=== PATIENT | male | born 1950 | race Caucasian/White ===

== ENCOUNTER 2016-12-12 02:01 | Emergency (ER) | payer MEDICARE ==
[2016-12-12] MEDS ORDERED: METHYLPREDNISOLONE PF 125MG/VIAL IM ONE (02:10)
[2016-12-12] MEDS ORDERED: 0.9 % SODIUM CHLORIDE 1000ML 1,000 ML IV SCH (02:15)
[2016-12-12] MEDS ORDERED: ALBUTEROL SULFATE (0.083%) 2.5 MG/3 ML NEB INH SCH (02:15)
[2016-12-12 02:19] LABS: BASO % 0.1 % (0-6); EOS % 0.3 % (0-6); HEMATOCRIT 44.8 % (42.0-52.0); HEMOGLOBIN 14.8 gm/dl (14.0-18.0); LYMPH % 4.6 % (16-45); MEAN CELL VOLUME 93.9 fl (81-97); MEAN PLATELET VOLUME 11.5 fl (7.4-10.4); MONO % 3.8 % (0-9); PLATELET COUNT 203 K/uL (130-400); RED BLOOD COUNT 4.77 M/uL (4.40-5.70); RED CELL DISTRIBUTION WIDTH 14.4 % (11.5-14.5); WHITE BLOOD COUNT W/O DIFF 15.6 K/uL (4.2-12.2)
--- NOTE | 2016-12-12 02:20 | Emergency Department Record ---
History of Present Illness - General Chief Complaint: Shortness of breath Stated Complaint: LAURA Time Seen by Provider: 12/12/16 02:09 Source: Patient Mode of Arrival: EMS Limitations: No limitations - History of Present Illness Initial Comments: 66 yo male presents to ED with a 2-3 day history of cough, fever, and difficulty breathing. Patient reports a previous history of COPD and CAD, non- oxygen dependent at home. Patient reports generalized weakness and non- productive cough symptoms as well. MD Complaint: Shortness of breath Onset/Timin -: Days(s) Consistency: Constant Improves With: Nothing Worsens With: Coughing Known History Of: COPD Associated Symptoms: Fever Treatments Prior to Arrival: Bronchodilator - Related Data Home Oxygen Therapy: No Home Medications Medication Instructions Recorded Confirmed Last Taken Carvedilol [Carvedilol] 12.5 mg PO BID 02/06/15 07/21/15 12/11/16 Furosemide [Furosemide] 20 mg PO DAILY 02/06/15 12/12/16 12/11/16 Lisinopril [Lisinopril] 10 mg PO DAILY 02/06/15 12/12/16 12/11/16 Lovastatin [Lovastatin] 40 mg PO DAILY 02/06/15 12/12/16 12/11/16 Carvedilol [Coreg] 12.5 mg PO BID 12/12/16 12/12/16 12/11/16 Multivitamin [Multi-Vitamin Daily] 1 tab PO DAILY 12/12/16 12/12/16 12/11/16 Previous Rx's Medication Instructions Recorded Epinephrine [Epipen] 0.3 mg IM ASDIR PRN #1 syr 02/21/15 Allergies Allergy/AdvReac Type Severity Reaction Status Date / Time No Known Drug Allergies Allergy Verified 07/21/15 08:17 Travel Screening - Travel/Exposure Within Last 30 Days Have you traveled within the last 30 days?: No - Travel/Exposure Within Last Year Have you traveled outside the [place] in the last year?: No - Additonal Travel Details Have you been exposed to anyone with a communicable illness?: No Review of Systems Constitutional: Reports: Fever. Denies: Chills, Malaise, Night sweats Eyes: Denies: Eye discharge, Eye pain ENT: Denies: Congestion, Ear pain, Epistaxis Respiratory: Reports: Cough, Dyspnea, Wheezes Cardiovascular: Reports: Dyspnea on exertion. Denies: Chest pain Endocrine: Denies: Fatigue, Heat or cold intolerance Gastrointestinal: Denies: Abdominal pain, Nausea, Vomiting Genitourinary: Denies: Incontinence, Retention Musculoskeletal: Denies: Arthralgia, Back pain, Gout, Joint swelling Skin: Denies: Bruising, Change in color Neurological: Denies: Abnormal gait, Confusion, Headache, Seizure Psychiatric: Denies: Anxiety Hematological/Lymphatic: Denies: Anemia, Blood Clots Past Medical History - SOCIAL HISTORY Smoking Status: Current every day smoker Alcohol Use: Occassional - RESPIRATORY Hx Respiratory Disorders: Yes Hx COPD: Yes - CARDIOVASCULAR Hx Cardio Disorders: Yes Hx Cardiac Cath: Yes Hx Heart Attack: Yes (triple bypass) Hx Pacemaker/Defib: Yes - NEURO Hx Neuro Disorders: No - GI Hx GI Disorders: No - Hx Genitourinary Disorders: No - ENDOCRINE Hx Endocrine Disorders: No - MUSCULOSKELETAL Hx Musculoskeletal Disorders: No - PSYCH Hx Psych Problems: No - HEMATOLOGY/ONCOLOGY Hx Hematology/Oncology Disorders: No Family Medical History Any Significant Family History?: No Hx Heart Disease: Father, Grandparents Physical Exam - General General Appearance: Alert, Oriented x3, Cooperative, Moderate distress Limitations: No limitations - Head Head exam: Atraumatic, Normocephalic, Normal inspection Head exam detail: negative: Abrasion, Contusion, Vargas's sign, General tenderness, Hematoma, Laceration - Eye Eye exam: Normal appearance. negative: Conjunctival injection, Periorbital swelling, Periorbital tenderness, Scleral icterus - ENT Ear exam: negative: Auricular hematoma, Auricular trauma Nasal Exam: negative: Active bleeding, Discharge, Dried blood, Foreign body Mouth exam: negative: Drooling, Laceration, Muffled voice, Tongue elevation - Neck Neck exam: Normal inspection. negative: Meningismus, Tenderness - Respiratory Respiratory exam: Decreased breath sounds, Prolonged expiratory, Respiratory distress, Wheezes - Cardiovascular Cardiovascular Exam: Normal rhythm, Normal heart sounds, Tachycardia - GI/Abdominal GI/Abdominal exam: Soft. negative: Rebound, Rigid, Tenderness - Rectal Rectal exam: Deferred - exam: Deferred - Extremities Extremities exam: Normal inspection. negative: Pedal edema, Tenderness - Back Back exam: Denies: CVA tenderness (R), CVA tenderness (L) - Neurological Neurological exam: Alert, Oriented X3 - Psychiatric Psychiatric exam: Normal affect, Normal mood - Skin Skin exam: Normal color. negative: Abrasion Type of lesion: negative: abrasion Course Vital Signs 12/12/16 02:06 Pulse Rate 150 H Respiratory 32 H Rate Blood Pressure 146/90 Pulse Ox 94 L - Reevaluation(s) Reevaluation #1: 12/12/16 02:18 EKG: Sinus tachycardia 156 with PVCs Normal axis, normal intervals ST depression I, II, AVF, ST depression V4-V6 Reevaluation #2: 12/12/16 02:50 CXR reviewed: Probably RLL infiltrate, ? interstitial edema as well. patient reassessed, BS are less diminished, audible wheezes are still present. Zithromax and Rocephin ordered to infuse. 12/12/16 02:51 Reevaluation #3: 12/12/16 03:11 Troponin level 0.331, aspirin given for elevated Troponin. IVFs and antibiotics are infusing for elevated lactic acid as well. Per patient request , will transfer to [facility] for admission to SDU. Reevaluation #4: 12/12/16 03:33 Case was discussed with Dr. Farah (Hospitalist), will obtain ABG and initiate transfer to [facility] ER to undergo respiratory viral panel prior to admission to the SDU. Reevaluation #5: 12/12/16 03:57 ABG reviewed, pCO2 41, overall normal appearing ABG 4:06 AM Case was discussed with Dr. Higgins, will accept patient for a ED viral respiratory panel prior to admission. 12/12/16 04:06 Medical Decision Making - Lab Data Result diagrams: 12/12/16 02:05 12/12/16 02:05 Critical Care Time Critical Care Time: Yes Total Critical Care Time: 60 Critical Care Time: Diagnosis and treatment for COPD, CAP, and elevated Troponin, arrangement for transfer to [facility] ER/SDU. Disposition Disposition: Transfer Clinical Impression: Elevated troponin I level, Community acquired pneumonia COPD (chronic obstructive pulmonary disease) Qualifiers: COPD type: unspecified COPD Qualified Code(s): J44.9 - Chronic obstructive pulmonary disease, unspecified Sepsis Qualifiers: Sepsis type: sepsis due to unspecified organism Qualified Code(s): A41.9 - Sepsis, unspecified organism Disposition: Acute Care Hospital Transfer Transfer To: [facility] Reason For Transfer: Sepsis, elevated troponin Accepting Physician: Gagan Higgins Time Discussed w/Accepting Physician: 04:01 Condition: (2) Stable Forms: Patient Portal Access Time of Disposition: 04:01
[2016-12-12] MEDS ORDERED: METHYLPREDNISOLONE PF 125MG/VIAL IVP SCH (02:30)
[2016-12-12 02:32] LABS: ALB/GLOB RATIO 1.3 (1.1-1.8); ALBUMIN 4.5 gm/dL (3.5-5.0); ALKALINE PHOSPHATASE 95 U/L (38-126); ALT/SGPT 33 U/L (21-72); ANION GAP 16.8 (7-16); AST/SGOT 32 U/L (17-59); BILIRUBIN,TOTAL 0.69 mg/dL (0.2-1.3); BLOOD UREA NITROGEN 11 mg/dL (9-20); CARBON DIOXIDE 23.2 mmol/L (22-30); CREATINE PHOSPHOKINASE 69 U/L (55-170); CREATININE 0.9 mg/dL (0.66-1.25); EST GLOMERULAR FILTRATION RATE > 60 ml/min; GLUCOSE,RANDOM 163 mg/dL (70-110)
[2016-12-12 02:43] LABS: CKMB 4.8 ug/L (0-6)
[2016-12-12] MEDS ORDERED: AZITHROMYCIN 500 MG in 0.9 % SODIUM CHLORIDE 250ML 250 ML IVPB ONE (02:52)
[2016-12-12] MEDS ORDERED: CEFTRIAXONE SODIUM 1 GM in 0.9 % SODIUM CHLORIDE 100ML 100 ML IVPB ONE (02:52)
[2016-12-12 03:05] LABS: TROPONIN I 0.331 ng/mL (0.00-0.034)
[2016-12-12] MEDS ORDERED: ASPIRIN 325 MG TABLET PO ONE (03:06)
[2016-12-12 03:41] LABS: INFLUENZA A NEGATIVE (NEGATIVE); INFLUENZA B NEGATIVE (NEGATIVE)
[2016-12-12 03:55] LABS: ARTERIAL BLD GAS O2 SATURATION 97.6 % (95-98); ARTERIAL BLOOD GAS BASE EXCESS -0.5 mmol/L (-2 - 3); ARTERIAL BLOOD GAS PCO2 41.1 mmHg (35-48); ARTERIAL BLOOD GAS pH 7.39 (7.35-7.45); CARBOXYHEMOGLOBIN 2.8 % (0-1.5); METHEMOGLOBIN 0.5 % (0.0-1.5); O2 HEMOGLOBIN 94.3 % vol (94-99); TOTAL HEMOGLOBIN 13.5 g/dl (14-18)
[2016-12-12 03:56] LABS: ALLEN TEST PASS
--- NOTE | 2016-12-15 14:53 | RADIOLOGY REPORT ---
EXAM: PORTABLE CHEST HISTORY: SHORTNESS OF BREATH, DIFFICULTY IN BREATHING, PRODUCTIVE COUGH AND FEVER FOR SEVERAL DAYS. TECHNIQUE: AP semi-upright portable view of the chest was obtained. Comparison: Portable chest 12/04/12. FINDINGS: Postop sternotomy as before. Pacemaker now in place, new since the prior study, with electrode leads extending into the region of the right atrium and right ventricle. No pneumothorax evident. Cardiomegaly is present with pulmonary venous hypertension and some interstitial blurring likely representing mild CHF with interstitial edema. Blunting of the right lateral costophrenic angle may represent a small associated pleural effusion. Follow- up films are suggested, preferably upright PA and lateral when clinically feasible. IMPRESSION: 1. POSTOP STERNOTOMY BEFORE. 2. PACEMAKER, NEW SINCE PRIOR STUDY, WITH NO PNEUMOTHORAX EVIDENT. 3. CARDIOMEGALY WITH ADDITIONAL FINDINGS SUGGESTING MILD CHF WITH INTERSTITIAL EDEMA. FOLLOW-UP FILMS SUGGESTED. JOB NUMBER: [id number] MTDD
== END 2016-12-12 04:44 | disposition short-term general hospital (02) ==
LOC: ER 02:01
DX: J18.9 Pneumonia, unspecified organism (principal); R79.89 Other specified abnormal findings of blood chemistry; J44.9 Chronic obstructive pulmonary disease, unspecified; R53.1 Weakness; R06.02 Shortness of breath; I25.10 Atherosclerotic heart disease of native coronary artery without angina pectoris; I25.2 Old myocardial infarction; F17.210 Nicotine dependence, cigarettes, uncomplicated
CPT/HCPCS: 36600; 71010; 80053; 82375; 82550; 82553; 82803; 83605; 83880; 84484; 85027; 87400; 93005; 93010; 94644; 96365; 96366; 96375; 99285; J0456; J2930; J7030; J7050; J7613

== ENCOUNTER 2017-02-09 08:04 | Inpatient (IN) | payer MEDICARE ==
--- NOTE | 2017-02-09 08:19 | Emergency Department Record ---
History of Present Illness - General Chief Complaint: Difficulty Breathing Stated Complaint: LAURA Time Seen by Provider: 02/09/17 08:17 Source: Patient Mode of Arrival: Ambulatory Limitations: No limitations - History of Present Illness Initial Comments: The patient is here due to a 2 week hx of progressively increasing shortness of breath. He has had a mild cough but that is chronic. The patient denies any CP but is having abdominal fullness. He does have an extensive hx of COPD and does wear home O2 mainly at night. The patient did have similar symptoms as this 2 months ago and did have a small FL and did have a heart catheterization done. He has had stents and a CABG in the past and reports everything looked stable on the catheterization. MD Complaint: Cough, Shortness of breath Onset/Timin -: Week(s) Severity: Moderate Improves With: Nothing Worsens With: Nothing Known History Of: COPD Associated Symptoms: Abdominal pain Treatments Prior to Arrival: Oxygen - Related Data Home Oxygen Therapy: Yes Home Oxygen Amount: 2 Liters Home Medications Medication Instructions Recorded Confirmed Last Taken Carvedilol [Carvedilol] 12.5 mg PO BID 02/06/15 02/09/17 02/08/17 Furosemide [Furosemide] 20 mg PO DAILY 02/06/15 02/09/17 02/08/17 Lisinopril [Lisinopril] 10 mg PO DAILY 02/06/15 02/09/17 02/08/17 Lovastatin [Lovastatin] 40 mg PO DAILY 02/06/15 02/09/17 02/08/17 Carvedilol [Coreg] 12.5 mg PO BID 12/12/16 02/09/17 02/08/17 Multivitamin [Multi-Vitamin Daily] 1 tab PO DAILY 12/12/16 02/09/17 02/08/17 Clopidogrel Bisulfate [Plavix] 75 mg PO DAILY 02/09/17 02/09/17 02/08/17 Fluticasone/Salmeterol [Advair 1 each IH BID 02/09/17 02/09/17 Unknown 250-50 Diskus] Previous Rx's Medication Instructions Recorded Epinephrine [Epipen] 0.3 mg IM ASDIR PRN #1 syr 02/21/15 Allergies Allergy/AdvReac Type Severity Reaction Status Date / Time No Known Drug Allergies Allergy Verified 02/09/17 08:16 Travel Screening - Travel/Exposure Within Last 30 Days Have you traveled within the last 30 days?: No Review of Systems Constitutional: Denies: Chills, Fever Eyes: Denies: Eye discharge ENT: Denies: Congestion Respiratory: Reports: Cough, Dyspnea Cardiovascular: Denies: Chest pain Endocrine: Reports: Fatigue Gastrointestinal: Denies: Constipation Genitourinary: Denies: Dysuria Musculoskeletal: Denies: Back pain Skin: Denies: Bruising Past Medical History - SOCIAL HISTORY Smoking Status: Current every day smoker - RESPIRATORY Hx Respiratory Disorders: Yes Hx COPD: Yes - CARDIOVASCULAR Hx Cardio Disorders: Yes Hx Cardiac Cath: Yes Hx Heart Attack: Yes (triple bypass) Hx Pacemaker/Defib: Yes - NEURO Hx Neuro Disorders: No - GI Hx GI Disorders: No - Hx Genitourinary Disorders: No - ENDOCRINE Hx Endocrine Disorders: No - MUSCULOSKELETAL Hx Musculoskeletal Disorders: No - PSYCH Hx Psych Problems: No - HEMATOLOGY/ONCOLOGY Hx Hematology/Oncology Disorders: No Family Medical History Hx Heart Disease: Father, Grandparents Physical Exam - General General Appearance: Alert, Oriented x3, Cooperative, No acute distress - Head Head exam: Atraumatic, Normocephalic, Normal inspection - Eye Eye exam: Normal appearance, PERRL - ENT Throat exam: Normal inspection. negative: Tonsillar erythema, Tonsillar exudate - Neck Neck exam: Normal inspection, Full ROM. negative: Tenderness - Respiratory Respiratory exam: Decreased breath sounds. negative: Normal lung sounds bilaterally - Cardiovascular Cardiovascular Exam: Regular rate, Normal rhythm, Normal heart sounds - GI/Abdominal GI/Abdominal exam: Soft, Normal bowel sounds. negative: Tenderness - Extremities Extremities exam: Normal inspection, Full ROM, Normal capillary refill. negative: Tenderness - Neurological Neurological exam: Alert, Oriented X3. negative: Altered, Motor sensory deficit Course Vital Signs 02/09/17 08:07 Temperature 97.7 F Pulse Rate 98 H Respiratory 22 Rate Blood Pressure 149/103 Pulse Ox 81 L - Reevaluation(s) Reevaluation #1: The patient is doing much better at this time. He is speaking in full sentences with no LAURA or SOB. I did explain to him that it appears the problem is due to CHF and he will need to stay in the hospital overnight at least for further treatment. The patient understands the plan and agrees. 02/09/17 09:33 Reevaluation #2: The patient is doing well at this time. I did discuss the issues with Selina and she does accept the patient for admission. 02/09/17 09:49 Medical Decision Making - Data Complexity MDM Data: Labs Ordered and/or Reviewed, X-Ray Ordered and/or Reviewed, EKG Ordered and/or Reviewed - Lab Data Result diagrams: 02/09/17 08:30 02/09/17 08:30 - EKG Data -: EKG Interpreted by Me EKG: No Acute Changes, Unchanged From Previous - Radiology Data Radiology results: Report reviewed (CXR: CHF) Disposition Disposition: Admit Clinical Impression: Congestive heart failure Qualifiers: Congestive heart failure type: unspecified congestive heart failure type Congestive heart failure chronicity: acute on chronic Qualified Code(s): I50.9 - Heart failure, unspecified Disposition: Still a Patient at [facility] Decision to Admit: Admit from ER Decision to Admit Date: 02/09/17 Decision to Admit Time: 09:50 Accepting Physician: Vandana Time Discussed w/Accepting Physician: 09:50 Condition: (2) Stable Forms: Patient Portal Access Time of Disposition: 09:50
[2017-02-09] MEDS ORDERED: IPRATROPIUM/ALBUTEROL (0.5MG/3MG) NEB INH ONE ×2 (08:31→08:32)
[2017-02-09 08:55] LABS: BASO % 0.3 % (0-6); EOS % 1.7 % (0-6); GRAN % 76.4 % (47-80); HEMATOCRIT 34.8 % (42.0-52.0); HEMOGLOBIN 11.4 gm/dl (14.0-18.0); INR 1.06; LYMPH % 11.7 % (16-45); MEAN CELL VOLUME 95.3 fl (81-97); MEAN CORPUSCULAR HEMOGLOBIN 31.2 pg (27-33); MEAN CORPUSCULAR HGB CONC 32.8 g/dl (32-36); MEAN PLATELET VOLUME 11.1 fl (7.4-10.4); MONO % 9.9 % (0-9); PARTIAL THROMBOPLASTIN TIME 25.7 SECONDS (24.5-39.1); PLATELET COUNT 206 K/uL (130-400); RED BLOOD COUNT 3.65 M/uL (4.40-5.70); RED CELL DISTRIBUTION WIDTH 13.5 % (11.5-14.5); WHITE BLOOD COUNT W/O DIFF 8.7 K/uL (4.2-12.2)
[2017-02-09 08:56] LABS: ANION GAP 10.7 (7-16); BLOOD UREA NITROGEN 14 mg/dL (9-20); CARBON DIOXIDE 26.3 mmol/L (22-30); CREATINE PHOSPHOKINASE 21 U/L (55-170); CREATININE 0.9 mg/dL (0.66-1.25); EST GLOMERULAR FILTRATION RATE > 60 ml/min; GLUCOSE,RANDOM 141 mg/dL (70-110)
[2017-02-09 09:08] LABS: CKMB 0.7 ug/L (0-6); TROPONIN I < 0.012 ng/mL (0.00-0.034)
[2017-02-09] MEDS ORDERED: FUROSEMIDE IV 40MG/4ML VIAL IVP ONE (09:13)
[2017-02-09 09:38] LABS: ARTERIAL BLD GAS O2 SATURATION 93.2 % (95-98); ARTERIAL BLOOD GAS BASE EXCESS 1.8 mmol/L (-2 - 3); ARTERIAL BLOOD GAS HCO3 26.1 mmol/L (18-23); ARTERIAL BLOOD GAS PCO2 41.9 mmHg (35-48); ARTERIAL BLOOD GAS pH 7.41 (7.35-7.45); METHEMOGLOBIN 0.4 % (0.0-1.5); TOTAL HEMOGLOBIN 11.1 g/dl (14-18)
[2017-02-09 09:40] LABS: ALLEN TEST NOT DONE
[2017-02-09] MEDS: IPRATROPIUM/ALBUTEROL (0.5MG/3MG) NEB INH SCH ×4 (12:19→22:39)
[2017-02-09] MEDS: CLOPIDOGREL 75MG TABLET PO SCH (12:54)
[2017-02-09] MEDS: CARVEDILOL 12.5 MG TABLET PO SCH ×2 (12:54→22:40)
[2017-02-09] MEDS: LISINOPRIL 10 MG TABLET PO SCH (12:54)
--- NOTE | 2017-02-09 16:09 | History & Physical ---
History of Present Illness - Date of Service Date of Service for History & Physical: 02/09/17 - History of Present Illness Admitting Diagnosis: 1. CHF Exacerbation with Hypoxia. History of Present Illness: 66yo male with CC of SOB. he has history of CAD s/p 3 vessel bypass with recent NC about 1.5 months ago, CHF, pacemaker/defibrillator implanted, COPD, and is a smoker. [facility] for NC. Patient underwent cardiac cath but no stenting done at the time. He had echo cardiogram showing systolic heart failure with Ef of 27%. He was sent home on lasix 20mg daily and set to see Dr. Mary in early March. Patient states about 2 weeks after he was hospitalized he started having some shortness of breath that progressed over the next 3 weeks. He was getting winded easily with activity. He decided to come back to the ED today. While in the ED, patient had oxygen saturation of 88% on room air. CXR showed evidence of fluid overload. His EKG showed sinus rhythm and left bundle branch block and 1st set of cardiac enzymes was wnl. He had BNP of 3950. shortness of breath improved following lasix 40mg IV and duoneb breathing treatment. CBC showed hgb of 11.4 and CMP showed BUN/Cr an d eGFR wnl range. Patient was admitted for CHF exacerbation. 02/09/17- Patient states he continues to have improvement in his SOB. He is resting comfortably in bed with oxygen on and satting around 95% with 2L. He denies chest pain, headache, lower extremity swelling or abdominal pain. He states he has been taking his medications on a daily basis without missed doses. Patient believes he is on a low salt diet and fluid restricted diet but says he has been drinking 2-3 coffees a day, a soda, water and usually 2-3 beers a day. He reports some abdominal bloating over the past few weeks as well , which is new for him. no previous liver problems that he is aware of. He continues to smoke but says he has cut back on the amount. interested in quitting but wants to do it cold turkey, doesn't feel he needs help. Admits he needs to get back in with his doctor since he hasn't been seen in about 2 years. PCP: Kirstin cardiology: Usman; [facility] Travel Screening - Travel/Exposure Within Last 30 Days Have you traveled within the last 30 days?: No - Travel/Exposure Within Last Year Have you traveled outside the [place] in the last year?: No - Additonal Travel Details Have you been exposed to anyone with a communicable illness?: No - Travel Symptoms Symptom Screening: None, Weakness Review of Systems Constitutional: Denies: Chills, Fever Eyes: Denies: Eye discharge ENT: Denies: Congestion Respiratory: Reports: Dyspnea Cardiovascular: Reports: Orthopnea. Denies: Chest pain, Edema, Palpitations, Paroxysmal nocturnal dyspnea Endocrine: Reports: Fatigue Gastrointestinal: Denies: Constipation Genitourinary: Denies: Dysuria Musculoskeletal: Denies: Back pain Skin: Denies: Bruising Past Medical History - SOCIAL HISTORY Smoking Status: Current every day smoker - RESPIRATORY Hx Respiratory Disorders: Yes Hx COPD: Yes - CARDIOVASCULAR Hx Cardio Disorders: Yes Hx Cardiac Cath: Yes Hx Heart Attack: Yes (triple bypass) Hx Pacemaker/Defib: Yes - NEURO Hx Neuro Disorders: No - GI Hx GI Disorders: No - Hx Genitourinary Disorders: No - ENDOCRINE Hx Endocrine Disorders: No - MUSCULOSKELETAL Hx Musculoskeletal Disorders: No - PSYCH Hx Psych Problems: No - HEMATOLOGY/ONCOLOGY Hx Hematology/Oncology Disorders: No Family Medical History Any Significant Family History?: Yes Hx Heart Disease: Father, Grandparents H&P Meds/Allergies - Allergies Allergies: Allergies Allergy/AdvReac Type Severity Reaction Status Date / Time No Known Drug Allergies Allergy Verified 02/09/17 08:16 - Home Medications Home Medications Medication Instructions Recorded Confirmed Last Taken Furosemide [Furosemide] 20 mg PO DAILY 02/06/15 02/09/17 02/08/17 Lisinopril [Lisinopril] 10 mg PO DAILY 02/06/15 02/09/17 02/08/17 Lovastatin [Lovastatin] 40 mg PO QHS 02/06/15 02/09/17 02/08/17 Carvedilol [Coreg] 12.5 mg PO BID 12/12/16 02/09/17 02/08/17 Multivitamin [Multi-Vitamin Daily] 1 tab PO DAILY 12/12/16 02/09/17 02/08/17 Clopidogrel Bisulfate [Plavix] 75 mg PO DAILY 02/09/17 02/09/17 02/08/17 Fluticasone/Salmeterol [Advair 1 each IH BID 02/09/17 02/09/17 Unknown 250-50 Diskus] Previous Rx's Medication Instructions Recorded Epinephrine [Epipen] 0.3 mg IM ASDIR PRN #1 syr 02/21/15 - Active Medications Active Medications: Current Medications Albuterol/Ipratropium (Duoneb) 3 ml INH RESP.Q4H.WA [facility] Last Admin: 02/09/17 15:35 Dose: 3 ml Carvedilol (Coreg) 12.5 mg PO BID [facility] Last Admin: 02/09/17 12:54 Dose: 12.5 mg Clopidogrel Bisulfate (Plavix) 75 mg PO DAILY [facility] Last Admin: 02/09/17 12:54 Dose: 75 mg Furosemide (Lasix Iv) 40 mg IVP BIDDIUR [facility] Lisinopril (Zestril) 10 mg PO DAILY [facility] Last Admin: 02/09/17 12:54 Dose: 10 mg Simvastatin (Zocor) 20 mg PO QHS [facility] Physical Exam - Vital Signs Vital Signs: Vital Signs - Last 24 Hrs Temp Pulse Pulse Resp BP Pulse Ox 02/09/17 15:37 88 18 95 02/09/17 13:47 98.3 F 84 18 144/78 95 02/09/17 12:20 94 H 18 95 02/09/17 11:45 97.6 F 83 24 125/75 92 L - General General Appearance: Alert, Oriented x3, Cooperative, No acute distress (obese) Limitations: No limitations - Head Head exam: Atraumatic, Normocephalic, Normal inspection - Eye Eye exam: Normal appearance, PERRL - ENT Throat exam: Normal inspection. negative: Tonsillar erythema, Tonsillar exudate - Neck Neck exam: Normal inspection, Full ROM. negative: Tenderness - Respiratory Respiratory exam: Decreased breath sounds (throughout). negative: Normal lung sounds bilaterally, Accessory muscle use, Rales, Wheezes - Cardiovascular Cardiovascular Exam: Regular rate, Normal rhythm, Normal heart sounds - GI/Abdominal GI/Abdominal exam: Soft, Normal bowel sounds, Distended (generally distended but very soft and non-tender). negative: Tenderness - Extremities Extremities exam: Normal inspection, Full ROM, Normal capillary refill. negative: Pedal edema, Tenderness - Neurological Neurological exam: Alert, Oriented X3. negative: Altered, Motor sensory deficit Results - Labs Result Diagrams: 02/09/17 08:30 02/09/17 08:30 Labs Last 24 Hours: Laboratory Results - last 24 hr 02/09/17 02/09/17 14:00 14:00 CK-MB (CK-2) 0.8 Troponin I < 0.012 VTE H&P Assessment - Risk for VTE Risk for VTE: Yes Risk Level: Moderate Risk Assessment Date: 02/09/17 Risk Assessment Time: 21:33 VTE Orders Placed or Will Be Placed: Yes Plan - Inpatient Certification Inpatient Certification: Admit to inpatient care: Based on my medical assessment, after consideration of patient's risk factors (age, co-morbidities and patient presenting symptoms and acuity), I expect that this patient will remain in the hospital greater than or equal to two midnights and that the services needed warrant inpatient care because: Patient Risk Factors: [age, acute CHF exacerbation, frequent hospitalizations] Estimated length of stay: [48-72H] The patient may reasonably be expected to be discharged or transferred to a hospital within 96 hours after admission to [facility]. Services needed: [IV diuretics, cardiac monitoring, dietary education] Post hospital care (if known): [] I certify that my determination is in accordance with my understanding of Medicare requirements for reasonable and necessary inpatient services. 02/09/17 21:33 - Detailed Diagnosis and Plan (1) Acute exacerbation of CHF (congestive heart failure) Current Visit: Yes Status: Acute Qualifiers: Congestive heart failure type: systolic Qualified Code(s): I50.23 - Acute on chronic systolic (congestive) heart failure Base Code: I50.9 - HEART FAILURE, UNSPECIFIED Comment: 02/09/17- symptomatically improved after 1st dose of lasix. Patient had echo within last month at [facility] following acute NC. not currently having any chest pain adn 1st and 2nd set of CE returned WNL. CXR with signs of fluid overload and BNP of 3950. BUN/Cr wnl ranges. suspect exacerbation 2/2 poor dietary compliance -continue lasix 40mg IV BID -continue serial enzymes -continue cardiac monitoring -obtain weight daily -fluid restriction to 2000cc daily -repeat labs qam -vitals q8H (2) COPD (chronic obstructive pulmonary disease) Current Visit: No Status: Acute Qualifiers: COPD type: unspecified COPD Qualified Code(s): J44.9 - Chronic obstructive pulmonary disease, unspecified Base Code: J44.9 - CHRONIC OBSTRUCTIVE PULMONARY DISEASE, UNSPECIFIED Comment: 02/09/17- COPD likely contributing to SOB. Improved with duoneb breathign treatment. Patient continues to smoke but is thinking about quitting which I encouraged. He is not currently on any home medications for COPD and has not been to his pcp in 2 years. -continue duoneb q4H prn sob per respiratory therapy -continue oxygen via NC to keep sats >92% (3) DVT prophylaxis Current Visit: Yes Status: Acute Base Code: [id number] - Comment: 02/09/17- patient is high risk for DVT with age, recent NC and mobillity. currently on plavix daily. Feel risk of bleed with plavix and lovenox daily will be high. -will add SCD's while in bed and encourage ambulation as tolerating. (4) Full code status Current Visit: Yes Status: Acute Base Code: Z78.9 - OTHER SPECIFIED HEALTH STATUS Comment: 02/09/17- patient is full code. he does have defibrillator placed
[2017-02-09] MEDS: FUROSEMIDE IV 40MG/4ML VIAL IVP SCH (16:20)
[2017-02-09] MEDS: 0.9 % SODIUM CHLORIDE 10ML SYR IVP SCH (16:22)
[2017-02-09 22:33] LABS: CKMB 0.6 ug/L (0-6); TROPONIN I 0.012 ng/mL (0.00-0.034)
[2017-02-09] MEDS: SIMVASTATIN 20 MG TABLET PO SCH (22:37)
[2017-02-10] MEDS: 0.9 % SODIUM CHLORIDE 10ML SYR IVP SCH ×3 (04:39→17:14)
[2017-02-10] MEDS: IPRATROPIUM/ALBUTEROL (0.5MG/3MG) NEB INH SCH ×5 (06:15→23:20)
[2017-02-10 06:47] LABS: BASO % 0.6 % (0-6); EOS % 2.6 % (0-6); GRAN % 64.9 % (47-80); HEMATOCRIT 35.2 % (42.0-52.0); HEMOGLOBIN 11.1 gm/dl (14.0-18.0); LYMPH % 21.1 % (16-45); MEAN CELL VOLUME 96.4 fl (81-97); MEAN CORPUSCULAR HEMOGLOBIN 30.4 pg (27-33); MEAN CORPUSCULAR HGB CONC 31.5 g/dl (32-36); MEAN PLATELET VOLUME 11.5 fl (7.4-10.4); MONO % 10.8 % (0-9); PLATELET COUNT 222 K/uL (130-400); RED BLOOD COUNT 3.65 M/uL (4.40-5.70); RED CELL DISTRIBUTION WIDTH 13.7 % (11.5-14.5)
[2017-02-10 07:06] LABS: ALB/GLOB RATIO 1.2 (1.1-1.8); ALBUMIN 3.8 gm/dL (3.5-5.0); BILIRUBIN,TOTAL 0.68 mg/dL (0.2-1.3); BLOOD UREA NITROGEN 19 mg/dL (9-20); TOTAL PROTEIN 7.1 gm/dL (6.3-8.2)
[2017-02-10 07:26] LABS: ALT/SGPT 26 U/L (21-72); ANION GAP 11.9 (7-16); CARBON DIOXIDE 27.1 mmol/L (22-30)
[2017-02-10 07:44] LABS: ALKALINE PHOSPHATASE 92 U/L (38-126); AST/SGOT 19 U/L (17-59); EST GLOMERULAR FILTRATION RATE > 60 ml/min; GLUCOSE,RANDOM 125 mg/dL (70-110)
--- NOTE | 2017-02-10 08:07 | RADIOLOGY REPORT ---
EXAM: CHEST HISTORY: DIFFICULTY BREATHING FOR TWO WEEKS. TECHNIQUE: A single view of the chest was obtained. Comparison: 12/12/16. FINDINGS: The cardiac silhouette is enlarged. There is an ICD/pacemaker present. There are post sternotomy changes. There is pulmonary vascular congestion. Findings appear similar to the previous study. No focal area of lung consolidation. Post surgical changes in the right shoulder. IMPRESSION: 1. CARDIOMEGALY AND POSTOPERATIVE CHANGE. 2. PACEMAKER/ICD DEVICE PRESENT. 3. PROMINENCE OF THE INTERSTITIAL LUNG MARKINGS LIKELY DUE TO CONGESTIVE FAILURE. JOB NUMBER: [id number] [facility]
[2017-02-10] MEDS: CARVEDILOL 12.5 MG TABLET PO SCH ×3 (08:37→23:18)
[2017-02-10] MEDS: LISINOPRIL 10 MG TABLET PO SCH ×2 (08:40→11:44)
[2017-02-10] MEDS: CLOPIDOGREL 75MG TABLET PO SCH ×2 (08:40→11:44)
[2017-02-10] MEDS: FUROSEMIDE IV 40MG/4ML VIAL IVP SCH ×2 (09:04→17:14)
--- NOTE | 2017-02-10 15:30 | Physician Progress Note ---
Subjective - Date Date of Physician Progress Note: 02/10/17 - Subjective Subjective Comment: Reports breathing has much improved since admission but c/o abdominal distention causing some shortness of breath and feeling of a tight abdomen. Last BM this am and reports was at his baseline. Continues to be short of breath while amb to the bathroom which is not his home baseline. He continues to be a poor historian regarding his health history and current social behaviors. Denies using oxygen at home but reports he does have a tank, reports he uses every other day, he reports uses maybe once a month. He reports stopped smoking in Dec 2016 but reporting to RT he smoke the day of admission. Has a home nebulizer but is 8 years old. Admits to drinking 2-3 12 oz can of beer per day. Has followed a low sodium diet, no pop since his OH in Dec 2016. No new nursing concerns. Objective - Vital Signs Vital Signs: Vital Signs - Last 24 Hrs Temp Pulse Pulse Resp BP Pulse Ox 02/10/17 14:46 74 18 02/10/17 12:00 97.7 F 75 18 109/56 97 02/10/17 10:45 79 18 02/10/17 09:00 73 18 02/10/17 08:17 97.8 F 73 18 106/65 96 02/10/17 06:26 88 20 94 L 02/10/17 05:00 97.7 F 90 22 125/76 94 L 02/10/17 00:23 97.5 F L 84 22 135/64 95 02/09/17 20:48 76 18 02/09/17 20:00 97.9 F 69 22 99/60 96 02/09/17 17:47 97.7 F 76 18 125/76 94 L 02/09/17 15:37 88 18 95 - General General Appearance: Alert, Oriented x3, Cooperative, No acute distress (obese) Limitations: No limitations - Head Head exam: Atraumatic, Normocephalic, Normal inspection - Eye Eye exam: Normal appearance, PERRL - ENT Throat exam: Normal inspection. negative: Tonsillar erythema, Tonsillar exudate - Neck Neck exam: Normal inspection, Full ROM. negative: Tenderness - Respiratory Respiratory exam: Decreased breath sounds (throughout). negative: Normal lung sounds bilaterally, Accessory muscle use, Rales, Wheezes - Cardiovascular Cardiovascular Exam: Regular rate, Normal rhythm, Normal heart sounds - GI/Abdominal GI/Abdominal exam: Normal bowel sounds (tympanic), Distended (firm, tender to palpation), Tenderness. negative: Pulsatile mass - Extremities Extremities exam: Normal inspection, Full ROM, Normal capillary refill. negative: Pedal edema, Tenderness - Neurological Neurological exam: Alert, Oriented X3. negative: Altered, Motor sensory deficit - Psychiatric Psychiatric exam: Normal affect, Normal mood - Skin Skin exam: Dry, Intact, Normal color, Warm Assessment and Plan - Assessment and Plan (1) Acute exacerbation of CHF (congestive heart failure) Current Visit: Yes Status: Acute Qualifiers: Congestive heart failure type: systolic Qualified Code(s): I50.23 - Acute on chronic systolic (congestive) heart failure Base Code: I50.9 - HEART FAILURE, UNSPECIFIED Comment: 02/10/17- symptomatically improved. Patient had echo within last month at [facility] following acute OH. not currently having any chest pain with 1st and 2nd set of CE returned WNL. CXR with signs of fluid overload and BNP of 3950. BUN/Cr wnl ranges. suspect exacerbation 2/2 poor dietary compliance. Lengthy discusion with patient and regarding importance of smoking cessation, following a low sodium diet, exercise in order to prevent recurrent exacerbations of CHF -continue lasix 40mg IV BID -continue serial enzymes -continue cardiac monitoring -obtain weight daily- 02/10- 183.3 -fluid restriction to 2000cc daily -repeat labs qam -vitals q8H -cardiology consult 02/11 (2) Abdominal distention Current Visit: Yes Status: Acute Base Code: R14.0 - ABDOMINAL DISTENSION ( GASEOUS) Comment: 02/10- reports has had chronic abominal distention, worse when CHF exacerbates. Liver and renal function normal, INR normal. - abdominal ultrasound r/o ascites vs. sequela of CHF exacerbation (3) COPD (chronic obstructive pulmonary disease) Current Visit: Yes Status: Chronic Qualifiers: COPD type: unspecified COPD Qualified Code(s): J44.9 - Chronic obstructive pulmonary disease, unspecified Base Code: J44.9 - CHRONIC OBSTRUCTIVE PULMONARY DISEASE, UNSPECIFIED Comment: 02/10/17- COPD likely contributing to SOB. Improved with duoneb breathign treatment. Patient continues to smoke but is thinking about quitting which I encouraged. He is not currently on any home medications for COPD and has not been to his pcp in 2 years. -continue duoneb q4H prn sob per respiratory therapy -continue oxygen via [place] to keep sats >92% -will need updated Rx for new nebulizer machine for home -will need home 02 qualifier at time of discharge (4) DVT prophylaxis Current Visit: Yes Status: Acute Base Code: [id number] - Comment: 02/10/17- patient is high risk for DVT with age, recent OH and mobillity. currently on plavix daily. Feel risk of bleed with plavix and lovenox daily will be high. -will add SCD's while in bed and encourage ambulation as tolerating. (5) Full code status Current Visit: Yes Status: Acute Base Code: Z78.9 - OTHER SPECIFIED HEALTH STATUS Comment: 02/10/17- patient is full code. he does have defibrillator placed Results - Labs Result Diagrams: 02/10/17 06:10 02/10/17 06:10 Labs Last 24 Hours: Laboratory Results - last 24 hr 02/09/17 02/10/17 02/10/17 22:02 06:10 06:10 WBC 7.0 RBC 3.65 L Hgb 11.1 L Hct 35.2 L MCV 96.4 MCH 30.4 MCHC 31.5 L RDW 13.7 Plt Count 222 MPV 11.5 H Gran % 64.9 Lymphocytes % 21.1 Monocytes % 10.8 H Eosinophils % 2.6 Basophils % 0.6 Sodium 139 Potassium 3.6 Chloride 100 Carbon Dioxide 27.1 Anion Gap 11.9 BUN 19 Creatinine 1.0 Estimated GFR > 60 Random Glucose 125 H Calcium 9.4 Total Bilirubin 0.68 AST 19 ALT 26 Alkaline Phosphatase 92 CK-MB (CK-2) 0.6 Troponin I 0.012 Total Protein 7.1 Albumin 3.8 Globulin 3.3 Albumin/Globulin Ratio 1.2 DVT/PE Assessment - Risk for VTE Risk for VTE: No Risk Level: Moderate Risk Assessment Date: 02/09/17 Risk Assessment Time: 21:33 VTE Orders Placed or Will Be Placed: Yes - Active Medicaitons Current Medications: Current Medications Albuterol/Ipratropium (Duoneb) 3 ml INH RESP.Q4H.[facility] Last Admin: 02/10/17 14:44 Dose: 3 ml Carvedilol (Coreg) 12.5 mg PO BID [facility] Last Admin: 02/10/17 11:44 Dose: Not Given Clopidogrel Bisulfate (Plavix) 75 mg PO DAILY [facility] Last Admin: 02/10/17 11:44 Dose: Not Given Furosemide (Lasix Iv) 40 mg IVP BIDDIUR [facility] Last Admin: 02/10/17 09:04 Dose: 40 mg Lisinopril (Zestril) 10 mg PO DAILY [facility] Last Admin: 02/10/17 11:44 Dose: Not Given Simvastatin (Zocor) 20 mg PO QHS [facility] Last Admin: 02/09/17 22:37 Dose: 20 mg Sodium Chloride () 10 ml IVP Q12H [facility] Last Admin: 02/10/17 09:06 Dose: 10 ml AMI Plan - Labs Result Diagrams: 02/10/17 06:10 02/10/17 06:10
[2017-02-10] MEDS: SIMVASTATIN 20 MG TABLET PO SCH (23:19)
[2017-02-11] MEDS: 0.9 % SODIUM CHLORIDE 10ML SYR IVP SCH ×2 (05:58→17:04)
[2017-02-11 06:55] LABS: BASO % 0.7 % (0-6); EOS % 4.2 % (0-6); HEMATOCRIT 36.2 % (42.0-52.0); HEMOGLOBIN 11.3 gm/dl (14.0-18.0); LYMPH % 24.5 % (16-45); MEAN CELL VOLUME 96.3 fl (81-97); MEAN CORPUSCULAR HGB CONC 31.2 g/dl (32-36); MEAN PLATELET VOLUME 10.9 fl (7.4-10.4); MONO % 12.6 % (0-9); PLATELET COUNT 272 K/uL (130-400); RED BLOOD COUNT 3.76 M/uL (4.40-5.70); RED CELL DISTRIBUTION WIDTH 13.5 % (11.5-14.5); WHITE BLOOD COUNT W/O DIFF 6.9 K/uL (4.2-12.2)
[2017-02-11 06:56] LABS: ALB/GLOB RATIO 1.1 (1.1-1.8); ALBUMIN 3.7 gm/dL (3.5-5.0); ALKALINE PHOSPHATASE 79 U/L (38-126); ALT/SGPT 27 U/L (21-72); AST/SGOT 19 U/L (17-59); BILIRUBIN,TOTAL 0.54 mg/dL (0.2-1.3); BLOOD UREA NITROGEN 20 mg/dL (9-20); CREATININE 1.1 mg/dL (0.66-1.25); EST GLOMERULAR FILTRATION RATE > 60 ml/min; GLUCOSE,RANDOM 112 mg/dL (70-110)
[2017-02-11] MEDS: IPRATROPIUM/ALBUTEROL (0.5MG/3MG) NEB INH SCH ×5 (07:25→21:52)
--- NOTE | 2017-02-11 08:42 | ULTRASOUND REPORT ---
EXAM: ULTRASOUND OF THE ABDOMEN HISTORY: RIGHT UPPER QUADRANT PAIN. TECHNIQUE: Sonographic evaluation of the abdomen was performed using ortega scale imaging. FINDINGS: The liver appears homogeneous. No focal hepatic mass. There is a small gallbladder polyp. No gallstones or ductal dilatation. The common bile duct measures 5 mm. The pancreas and spleen appear normal. The kidneys are normal in size with no hydronephrosis or nephrolithiasis. The abdominal aorta and inferior vena cava are patent. IMPRESSION: SMALL GALLBLADDER POLYP. NO DUCTAL DILATATION. JOB NUMBER: [id number] [facility]
[2017-02-11] MEDS: FUROSEMIDE IV 40MG/4ML VIAL IVP SCH (10:35)
[2017-02-11] MEDS: CLOPIDOGREL 75MG TABLET PO SCH (10:35)
[2017-02-11] MEDS: LISINOPRIL 10 MG TABLET PO SCH (10:35)
[2017-02-11] MEDS: CARVEDILOL 12.5 MG TABLET PO SCH ×2 (10:35→21:45)
--- NOTE | 2017-02-11 12:55 | Physician Progress Note ---
Subjective - Date Date of Physician Progress Note: 02/11/17 - Subjective Subjective Comment: Reports breathing is improved from yesterday. Still has some shortness of breath while amb to the BR but is also improved from yesterday. Denies any chest pain, palpitations, racing heart beats. Abdomen feels less tense today. No new nursing concerns. Objective - Vital Signs Vital Signs: Vital Signs - Last 24 Hrs Temp Pulse Pulse Resp BP Pulse Ox 02/11/17 10:55 97 02/11/17 10:52 77 18 100 02/11/17 09:00 99.1 F 81 18 112/70 97 02/11/17 05:45 97.9 F 91 H 22 122/67 98 02/11/17 03:00 97.9 F 78 20 113/73 95 02/10/17 21:00 80 02/10/17 20:00 97.5 F L 87 22 111/69 95 02/10/17 18:41 78 18 02/10/17 16:00 98.2 F 74 14 102/54 96 02/10/17 14:46 74 18 - General General Appearance: Alert, Oriented x3, Cooperative, No acute distress (obese) Limitations: No limitations - Head Head exam: Atraumatic, Normocephalic, Normal inspection - Eye Eye exam: Normal appearance, PERRL - ENT Throat exam: Normal inspection. negative: Tonsillar erythema, Tonsillar exudate - Neck Neck exam: Normal inspection, Full ROM. negative: Tenderness - Respiratory Respiratory exam: Decreased breath sounds (throughout). negative: Normal lung sounds bilaterally, Accessory muscle use, Rales, Wheezes - Cardiovascular Cardiovascular Exam: Regular rate, Normal rhythm, Normal heart sounds - GI/Abdominal GI/Abdominal exam: Normal bowel sounds (tympanic), Distended (less firm, non- tender), Tenderness. negative: Pulsatile mass - Extremities Extremities exam: Normal inspection, Full ROM, Normal capillary refill. negative: Pedal edema, Tenderness - Neurological Neurological exam: Alert, Oriented X3. negative: Altered, Motor sensory deficit - Psychiatric Psychiatric exam: Normal affect, Normal mood - Skin Skin exam: Dry, Intact, Normal color, Warm Assessment and Plan - Assessment and Plan (1) Acute exacerbation of CHF (congestive heart failure) Current Visit: Yes Status: Acute Qualifiers: Congestive heart failure type: systolic Qualified Code(s): I50.23 - Acute on chronic systolic (congestive) heart failure Base Code: I50.9 - HEART FAILURE, UNSPECIFIED Comment: 02/11/17- symptomatically improved. Patient had echo within last month at [facility] following acute IL. not currently having any chest pain with 1st and 2nd set of CE returned WNL. CXR with signs of fluid overload and BNP of 3950. BUN/Cr wnl ranges. suspect exacerbation 2/2 poor dietary compliance. Lengthy discusion with patient and regarding importance of smoking cessation, following a low sodium diet, exercise in order to prevent recurrent exacerbations of CHF -change lasix to 40mg BID PO -continue cardiac monitoring- noted st depression and t wave inversion likely ischemia from current CHF exac -obtain weight daily- 02/10- 183.3, 02/11-182.3 -fluid restriction to 2000cc daily -repeat labs qam -vitals q8H -cardiology consult 02/11- Dr Crenshaw recommend follow up CHF clinic in 1 week after discharge, BMP 1-2 days prior to CHF Clinic visit -anticipate discharge home tomorrow (2) Abdominal distention Current Visit: Yes Status: Acute Base Code: R14.0 - ABDOMINAL DISTENSION ( GASEOUS) Comment: 02/11- reports has had chronic abominal distention, worse when CHF exacerbates. Liver and renal function normal, INR normal. - abdominal ultrasound unremarkable, abominal distention improved today with likely etiology CHF exacerbation (3) COPD (chronic obstructive pulmonary disease) Current Visit: Yes Status: Chronic Qualifiers: COPD type: unspecified COPD Qualified Code(s): J44.9 - Chronic obstructive pulmonary disease, unspecified Base Code: J44.9 - CHRONIC OBSTRUCTIVE PULMONARY DISEASE, UNSPECIFIED Comment: 02/11/17- COPD likely contributing to SOB. Improved with duoneb breathign treatment. Patient continues to smoke but is thinking about quitting which I encouraged. He is not currently on any home medications for COPD and has not been to his pcp in 2 years. -continue duoneb q4H prn sob per respiratory therapy -continue oxygen via [place] to keep sats >92% -will need updated Rx for new nebulizer machine for home -will need home 02 qualifier at time of discharge (4) DVT prophylaxis Current Visit: Yes Status: Acute Base Code: [id number] - Comment: 02/11/17- patient is high risk for DVT with age, recent IL and mobillity. currently on plavix daily. Feel risk of bleed with plavix and lovenox daily will be high. -will add SCD's while in bed and encourage ambulation as tolerating. (5) Full code status Current Visit: Yes Status: Acute Base Code: Z78.9 - OTHER SPECIFIED HEALTH STATUS Comment: 02/11/17- patient is full code. he does have defibrillator placed Results - Labs Result Diagrams: 02/11/17 06:30 02/11/17 06:30 Labs Last 24 Hours: Laboratory Results - last 24 hr 02/11/17 02/11/17 06:30 06:30 WBC 6.9 RBC 3.76 L Hgb 11.3 L Hct 36.2 L MCV 96.3 MCH 30.0 MCHC 31.2 L RDW 13.5 Plt Count 272 MPV 10.9 H Gran % 58.0 Lymphocytes % 24.5 Monocytes % 12.6 H Eosinophils % 4.2 Basophils % 0.7 Sodium 139 Potassium 3.7 Chloride 100 Carbon Dioxide 32.0 H Anion Gap 7.0 BUN 20 Creatinine 1.1 Estimated GFR > 60 Random Glucose 112 H Calcium 9.4 Total Bilirubin 0.54 AST 19 ALT 27 Alkaline Phosphatase 79 Total Protein 7.0 Albumin 3.7 Globulin 3.3 Albumin/Globulin Ratio 1.1 DVT/PE Assessment - Risk for VTE Risk for VTE: No Risk Level: Moderate Risk Assessment Date: 02/09/17 Risk Assessment Time: 21:33 VTE Orders Placed or Will Be Placed: Yes - Active Medicaitons Current Medications: Current Medications Albuterol/Ipratropium (Duoneb) 3 ml INH RESP.Q4H.[facility] Last Admin: 02/11/17 10:51 Dose: 3 ml Carvedilol (Coreg) 12.5 mg PO BID [facility] Last Admin: 02/11/17 10:35 Dose: 12.5 mg Clopidogrel Bisulfate (Plavix) 75 mg PO DAILY [facility] Last Admin: 02/11/17 10:35 Dose: 75 mg Furosemide (Lasix) 40 mg PO BIDDIUR [facility] Lisinopril (Zestril) 10 mg PO DAILY [facility] Last Admin: 02/11/17 10:35 Dose: 10 mg Simvastatin (Zocor) 20 mg PO QHS [facility] Last Admin: 02/10/17 23:19 Dose: 20 mg Sodium Chloride () 10 ml IVP Q12H [facility] Last Admin: 02/11/17 05:58 Dose: 10 ml AMI Plan - Labs Result Diagrams: 02/11/17 06:30 02/11/17 06:30
--- NOTE | 2017-02-11 13:02 | Medical Records Consult ---
DATE OF CONSULTATION: 02/11/17 INDICATION: CHF. HISTORY: This is a 66-year-old male with a known history of heart failure, reduced ejection fraction, and recent acute coronary syndrome who was discharged in December from [facility] for non-ST elevation myocardial infarction and heart failure exacerbation. He was sent home on diuretics. He developed some increasing shortness of breath over the last two to three weeks. He presented to the Emergency Department, his O2 saturations were 88% on room air, he states they are always around 89% due to his underlying COPD, he was given some diuretics in the Emergency Department intravenously and felt better much quicker. This morning he states he is feeling kind of back to his baseline. He is still on oxygen therapy. He denied any chest discomfort at rest and with activity. He is trying to follow a low sodium diet. He does admit to probably consuming more fluid than he should. When asked if he drinks more than a two liter soda bottle of fluid , he said he probably well exceeds that throughout the day. He has quite a bit of water, two to three cups of coffee, two to three beers a day. He doesn't weigh himself regularly. ALLERGIES: No known drug allergies. He has had some intolerance to statins in the past. HOME MEDICATIONS: Listed on the [facility] medical records as Furosemide 20 mg daily, Lisinopril 10 mg daily, Lovastatin 40 mg q.h.s., Coreg 12.5 mg b.i.d., multivitamin daily. Plavix 75 mg daily, and Advair discus as directed. PAST MEDICAL HISTORY: Tobacco abuse ongoing, ischemic cardiomyopathy, AICD, non -ST elevation myocardial infarction, hyperlipidemia, obesity, peripheral vascular disease, and carotid stenting in 2016. REVIEW OF SYSTEMS: General: Denies fevers, chills, or night sweats. HEENT: No acute hearing or vision changes. Cardiovascular: As above. He has had increased abdominal distention over the last several weeks which corresponded to his increasing shortness of breath. Pulmonary: Positive for shortness of breath with rest and with activity. No cough or hemoptysis. GI: No nausea or vomiting. No tarry or bloody stools. No constipation. : No dysuria or hematuria. Musculoskeletal: Denies any acute discomfort. SOCIAL HISTORY: Every day smoker. Every day alcohol. PHYSICAL EXAMINATION: Vital signs - Temperature 97.9, blood pressure 122/67, pulse 91, respirations 22, pulse ox 98% on two liters. GENERAL: Alert in no apparent distress sitting up in the bed. He has very mild dyspnea with speech. HEENT: Normocephalic, atraumatic. NECK: Supple. Mild JVD noted. Left carotid bruit. CARDIOVASCULAR: Regular distant heart sounds. PULMONARY: A few scattered rales at the posterior bases. No accessory muscle use noted. ABDOMEN: Soft. Positive bowel sounds. Nontender. EXTREMITIES: Trace to 1+ ankle edema. Patient's extremities are warm to touch. No evidence of cellulitis. LABORATORY: See EMR. Troponin is less than 0.012 on 02/09/17. PTT 25.7, INR 1.06, PT 12.0, white blood cells 6.9, hemoglobin 11.3, hematocrit 36.2, platelets 272, glucose 112, BUN 20, creatinine 1.1, sodium 139, potassium 3.7. EKG shows sinus rhythm, left bundle branch block. ASSESSMENT/PLAN: HEART FAILURE WITH A REDUCED EJECTION FRACTION SECONDARY TO VOLUME OVERLOAD LIKELY DIETARY, NONCOMPLIANCE WITH FLUID RESTRICTION. DISCUSSED TWO LITER FLUID RESTRICTION. CONTINUE LOW SODIUM DIET. I WOULD RECOMMEND CONTINUING IV DIURETICS UNTIL PATIENT CAN WALK AROUND WITHOUT REQUIRING OXYGEN. YOU CAN DISCHARGE THE PATIENT ON 20 MG OF LASIX B.I.D. I WOULD RECOMMEND A POTASSIUM SUPPLEMENT. FOLLOW-UP LAB WORK IN TERMS OF HIS ELECTROLYTES IN A WEEK. WE WILL GET HIM IN TO SEE THE CHF CLINIC FOR POSSIBLE INITIATION OF ENTRESTO. 2. COPD AND ONGOING TOBACCO ABUSE. OBVIOUSLY HE NEEDS TO STOP SMOKING THE SOONER THE BETTER FOR BOTH HIS CARDIOVASCULAR SYSTEM AND PULMONARY SYSTEM. 3. NOTE ON THE [facility] RECORDS HE IS ONLY TAKING PLAVIX, HE DID HAVE ACUTE CORONARY SYNDROME WITHIN THE LAST YEAR SO I WOULD RECOMMEND ASPIRIN 81 MG DAILY. HIS HEART RATE IS A LITTLE HIGH, ONCE HE IS UVOLEMIC CAN INCREASE HIS BETA BRANT TO 25 MG B.I.D. I WOULD DO THIS OVER A WEEK, USUALLY START AT 25 MG IN THE EVENING AND IF THE PATIENT IS FEELING OKAY IN A WEEK THEN INCREASE TO 25 MG B.I.D. IF HIS HEART RATE IS STILL NOT 70 OR BELOW I WOULD RECOMMEND THE ADDITION OF CORLANOR FOR FURTHER HEART RATE MANAGEMENT. GIVEN HIS CARDIOMYOPATHY I WOULD RECOMMEND NO ALCOHOL GIVEN THE KNOWN CARDIOTOXIC EFFECTS OF ALCOHOL. AGAIN WE WILL SET UP A FOLLOW-UP IN A ONE WEEK IN THE [facility] HEART FAILURE CLINIC FOR POSSIBLE INITIATION OF ENTRESTO. 4. HISTORY OF PERIPHERAL VASCULAR DISEASE. CONTINUE MEDICAL THERAPY. Chris Crenshaw D.O. Date & Time JOB NUMBER: [id number] [facility]
[2017-02-11] MEDS ORDERED: FUROSEMIDE 40 MG TABLET PO SCH (16:00)
[2017-02-11] MEDS: SIMVASTATIN 20 MG TABLET PO SCH (21:45)
[2017-02-12] MEDS: 0.9 % SODIUM CHLORIDE 10ML SYR IVP SCH (05:00)
[2017-02-12] MEDS: IPRATROPIUM/ALBUTEROL (0.5MG/3MG) NEB INH SCH ×2 (05:55→09:56)
[2017-02-12 06:47] LABS: BASO % 0.7 % (0-6); EOS % 6.3 % (0-6); HEMOGLOBIN 12.1 gm/dl (14.0-18.0); LYMPH % 24.4 % (16-45); MEAN CELL VOLUME 96.3 fl (81-97); MEAN PLATELET VOLUME 10.9 fl (7.4-10.4); MONO % 10.6 % (0-9); PLATELET COUNT 274 K/uL (130-400); RED BLOOD COUNT 4.05 M/uL (4.40-5.70); RED CELL DISTRIBUTION WIDTH 13.6 % (11.5-14.5); WHITE BLOOD COUNT W/O DIFF 6.7 K/uL (4.2-12.2)
[2017-02-12 06:51] LABS: MEAN CORPUSCULAR HEMOGLOBIN 29.8 pg (27-33)
[2017-02-12 06:56] LABS: ALB/GLOB RATIO 1.2 (1.1-1.8); ALBUMIN 4.3 gm/dL (3.5-5.0); ALKALINE PHOSPHATASE 88 U/L (38-126); ALT/SGPT 24 U/L (21-72); ANION GAP 9.6 (7-16); AST/SGOT 24 U/L (17-59); BILIRUBIN,TOTAL 0.65 mg/dL (0.2-1.3); BLOOD UREA NITROGEN 21 mg/dL (9-20); CARBON DIOXIDE 31.4 mmol/L (22-30); CREATININE 1.1 mg/dL (0.66-1.25); EST GLOMERULAR FILTRATION RATE > 60 ml/min; GLUCOSE,RANDOM 105 mg/dL (70-110); TOTAL PROTEIN 7.8 gm/dL (6.3-8.2)
--- NOTE | 2017-02-12 09:11 | Discharge Summary ---
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 negative: Tonsillar erythema, Tonsillar exudate - Neck Neck exam: Normal inspection, Full ROM. negative: Tenderness - Respiratory Respiratory exam: Decreased breath sounds (throughout), Other (fine crackles right base, no respiratory distress, increased activity tolerance today, amb without oxygen without respiratory distress). negative: Normal lung sounds bilaterally, Accessory muscle use, Rales, Wheezes - Cardiovascular Cardiovascular Exam: Regular rate, Normal rhythm, Normal heart sounds - GI/Abdominal GI/Abdominal exam: Normal bowel sounds (tympanic), Distended (less firm, non- tender), Tenderness. negative: Pulsatile mass - Extremities Extremities exam: Normal inspection, Full ROM, Normal capillary refill. negative: Pedal edema, Tenderness - Neurological Neurological exam: Alert, Oriented X3. negative: Altered, Motor sensory deficit - Psychiatric Psychiatric exam: Normal affect, Normal mood - Skin Skin exam: Dry, Intact, Normal color, Warm Hospitalization - Hospitalization Admission Diagnosis: 1. CHF Exacerbation with Hypoxia. - Problem List/Discharge Diagnosis (1) Acute exacerbation of CHF (congestive heart failure) Current Visit: Yes Status: Acute Discharge Diagnosis: Congestive heart failure type: systolic Qualified Code(s): I50.23 - Acute on chronic systolic (congestive) heart failure Base Code: I50.9 - HEART FAILURE, UNSPECIFIED Comment: 02/12/17- symptomatically and clinically improved. Patient had echo within last month at [facility] following acute [place]. not currently having any chest pain with 1st and 2nd set of CE returned WNL. CXR with signs of fluid overload and BNP of 3950. BUN/Cr wnl ranges. suspect exacerbation 2/2 poor dietary compliance. Lengthy discusion with patient and regarding importance of smoking cessation, following a low sodium diet, exercise in order to prevent recurrent exacerbations of CHF -Per Dr James consult 1- decrease lasix to 20mg BID, add potassium supplement 10meq BID, BMP in 1 week (Rx given to patient), 2L fluid restriction per 24 hours, low sodium diet, add ASA 81mg QD, increase Beta Angel to 12.5mg in am, 25mg in pm, no ETOH -cardiac monitoring- noted st depression and t wave inversion likely ischemia from current CHF exac -daily weights- 02/10- 183.3, 02/11-182.3, 02/12-182.3 -follow up PCP in 1-2 weeks -follow up CHF Clinic in 1 week (2) Abdominal distention Current Visit: Yes Status: Acute Base Code: R14.0 - ABDOMINAL DISTENSION ( GASEOUS) Comment: 02/12- reports has had chronic abominal distention, worse when CHF exacerbates. Liver and renal function normal, INR normal. - abdominal ultrasound unremarkable, abominal distention continues to improve with likely etiology CHF exacerbation (3) COPD (chronic obstructive pulmonary disease) Current Visit: Yes Status: Chronic Discharge Diagnosis: COPD type: unspecified COPD Qualified Code(s): J44.9 - Chronic obstructive pulmonary disease, unspecified Base Code: J44.9 - CHRONIC OBSTRUCTIVE PULMONARY DISEASE, UNSPECIFIED Comment: 02/12/17- COPD likely contributing to SOB. Improved with duoneb breathign treatment. Patient continues to smoke but is thinking about quitting which I encouraged. He is not currently on any home medications for COPD and has not been to his pcp in 2 years. -continue duoneb q6hr at home -continue oxygen at home -updated Rx for nebulizer machine given at discharge -home O2 qualifier complete, RA biox 86% with amb (4) DVT prophylaxis Current Visit: Yes Status: Acute Base Code: [id number] - Comment: 02/12/17- patient is high risk for DVT with age, recent AZ and mobillity. currently on plavix daily. Feel risk of bleed with plavix and lovenox daily will be high. -will add SCD's while in bed and encourage ambulation as tolerating. (5) Full code status Current Visit: Yes Status: Acute Base Code: Z78.9 - OTHER SPECIFIED HEALTH STATUS Comment: 02/12/17- patient is full code. he does have defibrillator placed - Hospitalization Course Disposition: Home, Self-Care Hospital Course: 66yo male with CC of SOB. he has history of CAD s/p 3 vessel bypass with recent AZ about 1.5 months ago, CHF, pacemaker/defibrillator implanted, COPD, and is a smoker. Patient was recently admitted to [facility] about 1.5 months ago for AZ. Patient underwent cardiac cath but no stenting done at the time. He had echo cardiogram showing systolic heart failure with Ef of 27%. He was sent home on lasix 20mg daily and set to see Dr. Mary in early March. Patient states about 2 weeks after he was hospitalized he started having some shortness of breath that progressed over the next 3 weeks. He was getting winded easily with activity. He decided to come back to the ED today. While in the ED, patient had oxygen saturation of 88% on room air. CXR showed evidence of fluid overload. His EKG showed sinus rhythm and left bundle branch block and 1st set of cardiac enzymes was wnl. He had BNP of 3950. shortness of breath improved following lasix 40mg IV and duoneb breathing treatment. CBC showed hgb of 11.4 and CMP showed BUN/Cr an d eGFR wnl range. Patient was admitted for CHF exacerbation. 02/09/17- Patient states he continues to have improvement in his SOB. He is resting comfortably in bed with oxygen on and satting around 95% with 2L. He denies chest pain, headache, lower extremity swelling or abdominal pain. He states he has been taking his medications on a daily basis without missed doses. Patient believes he is on a low salt diet and fluid restricted diet but says he has been drinking 2-3 coffees a day, a soda, water and usually 2-3 beers a day. He reports some abdominal bloating over the past few weeks as well , which is new for him. no previous liver problems that he is aware of. He continues to smoke but says he has cut back on the amount. interested in quitting but wants to do it cold turkey, doesn't feel he needs help. Admits he needs to get back in with his doctor since he hasn't been seen in about 2 years. PCP: Kirstin cardiology: Usman; [facility] Procedures: Imaging and X-Rays 02/11/17 07:00 ABDOMEN, COMPLETE [US] Stat Abnormal Labs: Abnormal Lab Results 02/10/17 02/10/17 02/11/17 Range/Units 06:10 06:10 06:30 RBC 3.65 L 3.76 L (4.40-5.70) M/uL Hgb 11.1 L 11.3 L (14.0-18.0) gm/dl Hct 35.2 L 36.2 L (42.0-52.0) % MCHC 31.5 L 31.2 L (32-36) g/dl MPV 11.5 H 10.9 H (7.4-10.4) fl Monocytes % 10.8 H 12.6 H (0-9) % Eosinophils % (0-6) % Carbon Dioxide (22-30) mmol/L BUN (9-20) mg/dL Random Glucose 125 H (70-110) mg/dL 02/11/17 02/12/17 02/12/17 Range/Units 06:30 06:20 06:20 RBC 4.05 L (4.40-5.70) M/uL Hgb 12.1 L (14.0-18.0) gm/dl Hct 39.0 L (42.0-52.0) % MCHC 31.0 L (32-36) g/dl MPV 10.9 H (7.4-10.4) fl Monocytes % 10.6 H (0-9) % Eosinophils % 6.3 H (0-6) % Carbon Dioxide 32.0 H 31.4 H (22-30) mmol/L BUN 21 H (9-20) mg/dL Random Glucose 112 H (70-110) mg/dL Condition at Discharge: (3) Guarded Discharge Medications - Discharge Medications Prescriptions: Carvedilol [Coreg] 25 mg PO DAILY #30 tablet Carvedilol [Coreg] 12.5 mg PO [id number] #30 tablet Ipratropium/Albuterol [Duoneb] 3 ml INH QID #[address] Potassium Chloride [Klor-Con] 10 meq PO BID #60 tablet. Furosemide [Lasix] 20 mg PO BIDDIUR #15 tablet Home Medications: Ambulatory Orders Lisinopril 10 mg PO DAILY 02/06/15 [Last Taken 02/08/17] Lovastatin 40 mg PO QHS 02/06/15 [Last Taken 02/08/17] Epinephrine [Epipen] 0.3 mg IM ASDIR PRN #1 syr 02/21/15 [Last Taken 02/08/17] Multivitamin [Multi-Vitamin Daily] 1 tab PO DAILY 12/12/16 [Last Taken 02/08/17] Clopidogrel Bisulfate [Plavix] 75 mg PO DAILY 02/09/17 [Last Taken 02/08/17] Fluticasone/Salmeterol [Advair 250-50 Diskus] 1 each IH BID 02/09/17 [Last Taken Unknown] Aspirin Chewable 81 mg PO DAILY tab.chew 02/12/17 [Last Taken Unknown] Carvedilol [Coreg] 12.5 mg PO [id number] #30 tablet 02/12/17 [Last Taken Unknown] Carvedilol [Coreg] 25 mg PO DAILY #30 tablet 02/12/17 [Last Taken Unknown] Furosemide [Lasix] 20 mg PO BIDDIUR #15 tablet 02/12/17 [Last Taken Unknown] Ipratropium/Albuterol [Duoneb] 3 ml INH QID #240 ampul.neb 02/12/17 [Last Taken Unknown] Potassium Chloride [Klor-Con] 10 meq PO BID #60 tablet.sa 02/12/17 [Last Taken Unknown] Discharge Plan - Discharge Instructions Activity at Discharge: Increase Activity as Tolerated Diet at Discharge: Low Fat, Low Cholesterol, Low Salt Diet Additional Instructions: Follow low sodium diet-read food labels for low sodium foods (140 milligrams or less per serving of sodium). No alcohol intake Take a baby aspirin daily Stop smoking 2 Liter fluid restriction daily Follow up at CHF clinic in [place] in 1 week Get blood drawn 1-2 days before you go to CHF clinic
[2017-02-12] MEDS: CLOPIDOGREL 75MG TABLET PO SCH (09:35)
[2017-02-12] MEDS: LISINOPRIL 10 MG TABLET PO SCH (09:36)
[2017-02-12] MEDS ORDERED: FUROSEMIDE 40 MG TABLET PO ONE (10:00)
[2017-02-12] MEDS ORDERED: ASPIRIN 81 MG CHEWABLE TABLET PO SCH (10:00)
[2017-02-12] MEDS ORDERED: POTASSIUM CHLORIDE 10 MEQ TAB PO SCH (10:00)
[2017-02-12] MEDS ORDERED: CARVEDILOL 12.5 MG TABLET PO SCH ×2 (10:00→22:00)
[2017-02-12] MEDS ORDERED: FUROSEMIDE 20 MG TABLET PO SCH (10:00)
== END 2017-02-12 11:10 | disposition home or self-care (01) | DRG 292 ==
LOC: ER 08:04 → MEDSURG 11:38
PROVIDERS: ADMIT Family Medicine; ATTEND Family Medicine
DX: I50.33 Acute on chronic diastolic (congestive) heart failure (principal); I25.810 Atherosclerosis of coronary artery bypass graft(s) without angina pectoris; I42.8 Other cardiomyopathies; J44.9 Chronic obstructive pulmonary disease, unspecified; Z78.9 Other specified health status; Z95.810 Presence of automatic (implantable) cardiac defibrillator; F17.200 Nicotine dependence, unspecified, uncomplicated; I25.5 Ischemic cardiomyopathy; Z79.02 Long term (current) use of antithrombotics/antiplatelets; I73.9 Peripheral vascular disease, unspecified; R14.0 Abdominal distension (gaseous)
CPT/HCPCS: 36600; 71010; 76700; 80048; 80053; 82375; 82550; 82553; 82803; 83880; 84484; 85025; 85610; 85730; 93005; 93010; 93041; 94620; 94640; 94760; 94761; 96374; 99223; 99233; 99239; 99285; J1940

== ENCOUNTER 2017-05-27 19:14 | Emergency (ER) | payer MEDICARE ==
--- NOTE | 2017-05-27 20:00 | Emergency Department Record ---
History of Present Illness - General Chief complaint: Bite Insect/other Stated complaint: RT ARM INSECT BITE Time Seen by Provider: 05/27/17 19:53 Source: Patient Mode of Arrival: Ambulatory Limitations: No limitations - History of Present Illness Initial comments: pt has rash on r arm that itches. pt was burning outside today MD complaint: Rash Onset/Timin Hx Tetanus Toxoid Vaccination: Yes Year of Tetanus Vaccination: unsure Location: RUE Severity: Moderate Severity scale (1-10): 4 Quality: Aching Consistency: Getting worse Associated symptoms: Itching Treatments Prior to Arrival: Benadryl - Related Data Home Medications Medication Instructions Recorded Confirmed Last Taken Lisinopril 10 mg PO DAILY 02/06/15 05/27/17 02/08/17 Lovastatin 40 mg PO QHS 02/06/15 05/27/17 02/08/17 Multivitamin [Multi-Vitamin Daily] 1 tab PO DAILY 12/12/16 05/27/17 02/08/17 Previous Rx's Medication Instructions Recorded Epinephrine [Epipen] 0.3 mg IM ASDIR PRN #1 syr 02/21/15 Carvedilol [Coreg] 25 mg PO DAILY #30 tablet 02/12/17 Methylprednisolone [Medrol Dose 4 mg PO ASDIR #1 tab.ds.pk 05/27/17 Pack] Allergies Allergy/AdvReac Type Severity Reaction Status Date / Time No Known Drug Allergies Allergy Verified 02/09/17 08:16 Travel Screening - Travel/Exposure Within Last 30 Days Have you traveled within the last 30 days?: No Review of Systems Reviewed: No additional complaints except as noted below Constitutional: Reports: As per HPI. Denies: Chills, Fever, Malaise, Night sweats, Weakness, Weight change Eyes: Reports: As per HPI. Denies: Eye discharge, Eye pain, Photophobia, Vision change ENT: Reports: As per HPI. Denies: Congestion, Dental pain, Ear pain, Epistaxis , Hearing loss, Throat pain Respiratory: Reports: As per HPI. Denies: Cough, Dyspnea, Hemoptysis, Stridor, Wheezes Cardiovascular: Reports: As per HPI. Denies: Arrhythmia, Chest pain, Dyspnea on exertion, Edema, Murmurs, Orthopnea, Palpitations, Paroxysmal nocturnal dyspnea, Rheumatic Fever, Syncope Endocrine: Reports: As per HPI. Denies: Fatigue, Heat or cold intolerance, Polydipsia, Polyuria Gastrointestinal: Reports: As per HPI. Denies: Abdominal pain, Constipation, Diarrhea, Hematemesis, Hematochezia, Melena, Nausea, Vomiting Genitourinary: Reports: As per HPI. Denies: Dysuria, Frequency, Hematuria, Incontinence, Retention, Testicular pain, Testicular mass, Urgency Musculoskeletal: Reports: As per HPI. Denies: Arthralgia, Back pain, Gout, Joint swelling, Myalgia, Neck pain Skin: Reports: As per HPI. Denies: Bruising, Change in color, Change in hair/ nails, Lesions, Pruritus, Rash Neurological: Reports: As per HPI. Denies: Abnormal gait, Confusion, Headache, Numbness, Paresthesias, Seizure, Tingling, Tremors, Vertigo, Weakness Psychiatric: Reports: As per HPI. Denies: Anxiety, Auditory hallucinations, Depression, Homicidal thoughts, Suicidal thoughts, Visual hallucinations Hematological/Lymphatic: Reports: As per HPI. Denies: Anemia, Blood Clots, Easy bleeding, Easy bruising, Swollen glands Past Medical History - SOCIAL HISTORY Smoking Status: Current every day smoker Alcohol Use: Occasional Drug Use: None - RESPIRATORY Hx Respiratory Disorders: Yes Hx COPD: Yes - CARDIOVASCULAR Hx Cardio Disorders: Yes Hx Cardiac Cath: Yes Hx Heart Attack: Yes (triple bypass) Hx Pacemaker/Defib: Yes - NEURO Hx Neuro Disorders: No - GI Hx GI Disorders: No - Hx Genitourinary Disorders: No - ENDOCRINE Hx Endocrine Disorders: No - MUSCULOSKELETAL Hx Musculoskeletal Disorders: No - PSYCH Hx Psych Problems: No - HEMATOLOGY/ONCOLOGY Hx Hematology/Oncology Disorders: No Family Medical History Any Significant Family History?: Yes Hx Heart Disease: Father, Grandparents Physical Exam - General General Appearance: Alert, Oriented x3, Cooperative, Mild distress - Head Head exam: Normal inspection - Eye Eye exam: Normal appearance, PERRL, EOMI Pupils: Normal accommodation - ENT ENT exam: Normal exam, Mucous membranes moist, Normal external ear exam, Normal orophraynx Ear exam: Normal external inspection. negative: External canal tenderness Nasal Exam: Normal inspection. negative: Discharge, Sinus tenderness Mouth exam: Normal external inspection, Tongue normal Teeth exam: Normal inspection. negative: Dental caries Throat exam: Normal inspection. negative: Tonsillar erythema, Tonsillar exudate - Neck Neck exam: Normal inspection, Full ROM. negative: Tenderness - Respiratory Respiratory exam: Normal lung sounds bilaterally. negative: Respiratory distress - Cardiovascular Cardiovascular Exam: Regular rate, Normal rhythm, Normal heart sounds - GI/Abdominal GI/Abdominal exam: Soft, Normal bowel sounds. negative: Tenderness - Rectal Rectal exam: Deferred - exam: Deferred - Extremities Extremities exam: Normal inspection, Full ROM, Normal capillary refill. negative: Tenderness - Back Back exam: Reports: Normal inspection, Full ROM. Denies: Muscle spasm, Rash noted, Tenderness - Neurological Neurological exam: Alert, CN II-XII intact, Normal gait, Oriented X3 - Psychiatric Psychiatric exam: Normal affect, Normal mood - Skin Skin exam: Dry, Erythema, Intact, Normal color, Rash, Warm Distribution of rash: RUE Description of rash: Erythematous Course Vital Signs 05/27/17 19:25 Temperature 98.4 F Pulse Rate 74 Respiratory 18 Rate Blood Pressure 114/72 Pulse Ox 96 Disposition Disposition: Discharge Clinical Impression: Poison marzena dermatitis Disposition: Home, Self-Care Condition: (1) Good Instructions: Poison Marzena (ED) Additional Instructions: follow up with family doctor. return sooner if worse. take benadryl every 6 hours as needed Prescriptions: Methylprednisolone [Medrol Dose Pack] 4 mg PO ASDIR #1 tab.ds.pk Forms: Patient Portal Access Quality - Quality Measures Quality Measures: N/A - Blood Pressure Screening Blood Pressure Classification: Normal BP Reading Systolic Measurement: 114 Diastolic Measurement: 72 Screening for High Blood Pressure: < Normal BP, F/U Not Required > [[id number]] Normal BP Follow-up Interventions: No follow-up required
[2017-05-27] MEDS: DIPHENHYDRAMINE HCL 25 MG CAPSULE PO ONE (20:05)
[2017-05-27] MEDS: PREDNISONE 20 MG TAB PO ONE (20:05)
== END 2017-05-27 20:09 | disposition home or self-care (01) ==
LOC: ER 19:14
DX: L23.7 Allergic contact dermatitis due to plants, except food (principal)
CPT/HCPCS: J7512; 99282

== ENCOUNTER 2017-05-28 12:16 | Emergency (ER) | payer MEDICARE ==
[2017-05-28] MEDS ORDERED: METHYLPREDNISOLONE SOD 40MG/VIAL IM ONE (12:34)
--- NOTE | 2017-05-28 12:40 | Emergency Department Record ---
History of Present Illness - General Chief complaint: Rash Stated complaint: POISON BURT Time Seen by Provider: 05/28/17 12:27 Source: Patient Mode of Arrival: Ambulatory Limitations: No limitations - History of Present Illness Initial comments: The patient is here due to worsening itching to his arms R>L. He was in the ED last evening due to the same issues and was discharged on Benadryl 25 mg QID and a Medrol dose pack. He took the first dose of the Medrol this AM. Now the patient states the itching is worsening and even spreading to his R lower abdomen. He denies any new medicines or foods but was burning something yesterday am and there was a lot of smoke which did get on his arms. He believes he may reacting to that. The patient denies any new medicines, foods, or exposures. The rash to the arms and trunk is NOT painful and only very pruritic. MD complaint: Rash Onset/Timin -: Days(s) Hx Tetanus Toxoid Vaccination: Yes Year of Tetanus Vaccination: unsure Severity: Mild Consistency: Other Associated symptoms: Itching Treatments Prior to Arrival: Benadryl, Corticosteroid - Related Data Home Medications Medication Instructions Recorded Confirmed Last Taken Lisinopril 10 mg PO DAILY 02/06/15 05/28/17 05/28/17 Lovastatin 40 mg PO QHS 02/06/15 05/28/17 05/27/17 Multivitamin [Multi-Vitamin Daily] 1 tab PO DAILY 12/12/16 05/28/17 05/28/17 Previous Rx's Medication Instructions Recorded Epinephrine [Epipen] 0.3 mg IM ASDIR PRN #1 syr 02/21/15 Carvedilol [Coreg] 25 mg PO DAILY #30 tablet 02/12/17 Methylprednisolone [Medrol Dose 4 mg PO ASDIR #1 tab.ds.pk 05/27/17 Pack] Allergies Allergy/AdvReac Type Severity Reaction Status Date / Time No Known Drug Allergies Allergy Verified 02/09/17 08:16 Travel Screening - Travel/Exposure Within Last 30 Days Have you traveled within the last 30 days?: No - Travel/Exposure Within Last Year Have you traveled outside the [place] in the last year?: No - Additonal Travel Details Have you been exposed to anyone with a communicable illness?: No - Travel Symptoms Symptom Screening: None Review of Systems Constitutional: Denies: Chills, Fever Eyes: Denies: Eye discharge ENT: Denies: Congestion, Throat pain Respiratory: Denies: Cough, Dyspnea Past Medical History - SOCIAL HISTORY Smoking Status: Current every day smoker - RESPIRATORY Hx Respiratory Disorders: Yes Hx COPD: Yes - CARDIOVASCULAR Hx Cardio Disorders: Yes Hx Cardiac Cath: Yes Hx Heart Attack: Yes (triple bypass) Hx Pacemaker/Defib: Yes - NEURO Hx Neuro Disorders: No - GI Hx GI Disorders: No - Hx Genitourinary Disorders: No - ENDOCRINE Hx Endocrine Disorders: No - MUSCULOSKELETAL Hx Musculoskeletal Disorders: No - PSYCH Hx Psych Problems: No - HEMATOLOGY/ONCOLOGY Hx Hematology/Oncology Disorders: No Family Medical History Any Significant Family History?: No Hx Heart Disease: Father, Grandparents Physical Exam - General General Appearance: Alert, Oriented x3, Cooperative, No acute distress - Head Head exam: Atraumatic, Normocephalic, Normal inspection - Eye Eye exam: Normal appearance, PERRL - Neck Neck exam: Normal inspection, Full ROM. negative: Tenderness - Respiratory Respiratory exam: Normal lung sounds bilaterally. negative: Respiratory distress - Cardiovascular Cardiovascular Exam: Regular rate, Normal rhythm, Normal heart sounds - GI/Abdominal GI/Abdominal exam: Soft, Normal bowel sounds. negative: Tenderness - Extremities Extremities exam: negative: Normal inspection - Skin Skin exam: Rash (There is a diffuse lacy erythematous erytheroderma to the dorsal R hand and forearm with minimal rash to the anterior forearms. The rash is NOT tender or warm but is VERY pruritic. The hands and arms are NVI. There is a very small area of a similar rash to the R lower abdomen at the belt line.) Course Vital Signs 05/28/17 12:20 Temperature 98.0 F Pulse Rate 20 L Respiratory 16 Rate Blood Pressure 123/72 Pulse Ox 93 L - Reevaluation(s) Reevaluation #1: The rash clearly appears to be a contact dermatitis most likely from a substance he was burning. He is to increase the Benadryl to 50 mg 3-4 times a day and is also to continue the Medrol Dose pack. 05/28/17 12:40 Disposition Disposition: Discharge Clinical Impression: Dermatitis Disposition: Home, Self-Care Condition: (1) Good Instructions: Acute Rash (ED) Additional Instructions: Please continue the Medrol and increase your Benadryl to 50 mg 3-4 times a day for 5 days. Please see your PCP if not better in 2-3 days and return to the ER if worse. Forms: Patient Portal Access Time of Disposition: 12:43 Quality - Quality Measures Quality Measures: N/A - Blood Pressure Screening View Details: Yes Blood Pressure Classification: Pre-Hypertensive BP Reading Systolic Measurement: 123 Diastolic Measurement: 72 Screening for High Blood Pressure: < Pre-Hypertensive BP, F/U Documented > [ [id number]] Pre-Hypertensive Follow-up Interventions: Follow-up with rescreen every year.
== END 2017-05-28 12:54 | disposition home or self-care (01) ==
LOC: ER 12:16
DX: L25.9 Unspecified contact dermatitis, unspecified cause (principal)
CPT/HCPCS: 96372; 99283; J2920

== ENCOUNTER 2017-09-03 09:18 | Inpatient (IN) | payer MEDICARE ==
--- NOTE | 2017-09-03 09:44 | Emergency Department Record ---
History of Present Illness - General Chief Complaint: Dizziness Stated Complaint: DIZZINESS Time Seen by Provider: 09/03/17 09:37 Source: Patient Mode of Arrival: Ambulatory Limitations: No limitations - History of Present Illness Initial Comments: The patient is here due to a 5 day hx of weakness and dizziness The patient describes the symptoms as intermittently lightheaded when standing and also like he is spinning when he moves his head. He denies any CP, SOB, LAUAR, or PARR. The patient did trip and fall 2 days ago and bumped his head over his R eye. There was no reported LOC. The patient denies any recent illnesses, injuries, new medicines or any hx of similar issues. He also denies any arm or leg numbness, weakness, cough, or fever but he has had a mild LANDRY over the last week. The patient did drive to the ED with no difficulties. MD Complaint: Dizziness Onset/Timin -: Days(s) Timing: Waxing/waning Description: Other History of Same: No Severity: Moderate Improves With: Remaining still, Rest Worsens With: Movement, Exertion Associated Symptoms: Denies other symptoms - Yuly Coma Scale Eye Response: (4) Open spontaneously Motor Response: (6) Obeys commands Verbal Response: (5) Oriented Snover Total: 15 - Related Data Previous Rx's Medication Instructions Recorded Carvedilol [Coreg] 25 mg PO DAILY #30 tablet 02/12/17 Allergies Allergy/AdvReac Type Severity Reaction Status Date / Time No Known Drug Allergies Allergy Verified 09/03/17 09:30 Travel Screening - Travel/Exposure Within Last 30 Days Have you traveled within the last 30 days?: No - Travel/Exposure Within Last Year Have you traveled outside the [place] in the last year?: No - Additonal Travel Details Have you been exposed to anyone with a communicable illness?: No - Travel Symptoms Symptom Screening: None Past Medical History - SOCIAL HISTORY Smoking Status: Current every day smoker Alcohol Use: Occasional Alcohol Use Comment: 2 beers a day Drug Use: None - RESPIRATORY Hx Respiratory Disorders: Yes Hx COPD: Yes - CARDIOVASCULAR Hx Cardio Disorders: Yes Hx Cardiac Cath: Yes Hx Heart Attack: Yes (triple bypass) Hx Pacemaker/Defib: Yes - NEURO Hx Neuro Disorders: No - GI Hx GI Disorders: No - Hx Genitourinary Disorders: No - ENDOCRINE Hx Endocrine Disorders: No - MUSCULOSKELETAL Hx Musculoskeletal Disorders: No - PSYCH Hx Psych Problems: No - HEMATOLOGY/ONCOLOGY Hx Hematology/Oncology Disorders: No Family Medical History Any Significant Family History?: Yes Hx Heart Disease: Father, Grandparents Physical Exam - General General Appearance: Alert, Oriented x3, Cooperative, No acute distress - Head Head exam: Atraumatic, Normocephalic, Normal inspection - Eye Eye exam: Normal appearance, PERRL, EOMI - ENT ENT exam: Normal exam, Mucous membranes moist, Normal external ear exam, Normal orophraynx, TM's normal bilaterally Throat exam: Normal inspection. negative: Tonsillar erythema, Tonsillar exudate - Neck Neck exam: Normal inspection, Full ROM. negative: Lymphadenopathy, Meningismus , Tenderness - Respiratory Respiratory exam: Normal lung sounds bilaterally. negative: Respiratory distress - Cardiovascular Cardiovascular Exam: Regular rate, Normal rhythm, Normal heart sounds - GI/Abdominal GI/Abdominal exam: Soft, Normal bowel sounds. negative: Tenderness - Extremities Extremities exam: Normal inspection, Full ROM, Normal capillary refill. negative: Tenderness - Back Back exam: Reports: Normal inspection - Neurological Neurological exam: Alert, Motor sensory deficit (There is mild L arm and hand ataxia with an abnormal L hand finger to nose testing.), Normal gait, Oriented X3. negative: Abnormal gait, Altered - Psychiatric Psychiatric exam: negative: Anxious Course Vital Signs 09/03/17 09:32 Temperature 98.5 F Pulse Rate 82 Respiratory 18 Rate Blood Pressure 126/71 Pulse Ox 96 - Reevaluation(s) Reevaluation #1: The patient is doing very well at this time. He is resting comfortably with no new complaints. I did discuss the CT findings with him and that it appears the patient's symptoms are due to a cerebellar CVA. I also did discuss the findings with Dr. Pino and due to the CVA being subacute we do feel it is OK for the patient to stay here at [facility]. 09/03/17 11:07 Medical Decision Making - Data Complexity MDM Data: Labs Ordered and/or Reviewed, X-Ray Ordered and/or Reviewed, EKG Ordered and/or Reviewed - Lab Data Result diagrams: 09/03/17 09:45 09/03/17 09:45 - EKG Data -: EKG Interpreted by Me EKG: No Acute Changes, Unchanged From Previous - Radiology Data Radiology results: Report reviewed (CXR: No acute changes. Head CT: L sided subacute CVA with no hemorrhage, midline shift or mass effect.) Disposition Disposition: Admit Clinical Impression: CVA (cerebral vascular accident) Qualifiers: CVA mechanism: unspecified Qualified Code(s): I63.9 - Cerebral infarction, unspecified Disposition: Still a Patient at [facility] Decision to Admit: Admit from ER Decision to Admit Date: 09/03/17 Decision to Admit Time: 11:09 Accepting Physician: Alvarez Hoyos Discussed w/Accepting Physician: 11:09 Condition: (2) Stable Time of Disposition: 11:09 Quality - Quality Measures Quality Measures: N/A - Blood Pressure Screening View Details: Yes Does Patient Have Any of the Following: Active Dx of HTN Blood Pressure Classification: Normal BP Reading Systolic Measurement: 106 Diastolic Measurement: 73 Screening for High Blood Pressure: Patient Exclusion, Hx of HTN [[id number]]
[2017-09-03 10:33] LABS: BASO % 0.7 % (0-6); EOS % 4.7 % (0-6); GRAN % 61.5 % (47-80); HEMATOCRIT 46.6 % (42.0-52.0); HEMOGLOBIN 15.8 gm/dl (14.0-18.0); LYMPH % 20.3 % (16-45); MEAN CELL VOLUME 89.6 fl (81-97); MEAN CORPUSCULAR HEMOGLOBIN 30.4 pg (27-33); MEAN CORPUSCULAR HGB CONC 33.9 g/dl (32-36); MEAN PLATELET VOLUME 11.9 fl (7.4-10.4); MONO % 12.8 % (0-9); PLATELET COUNT 169 K/uL (130-400); RED CELL DISTRIBUTION WIDTH 15.6 % (11.5-14.5); WHITE BLOOD COUNT W/O DIFF 5.7 K/uL (4.2-12.2)
[2017-09-03 10:45] LABS: INR 1.04; PARTIAL THROMBOPLASTIN TIME 27.3 SECONDS (24.5-39.1); PROTHROMBIN TIME (PATIENT) 11.2 SECONDS (9.5-12.1)
[2017-09-03] MEDS ORDERED: 0.9 % SODIUM CHLORIDE 1,000 ML BAG IV ONE (10:51)
[2017-09-03] MEDS ORDERED: MECLIZINE 25 MG TABLET PO ONE (10:51)
[2017-09-03] MEDS ORDERED: ASPIRIN 325 MG TABLET PO ONE (10:53)
[2017-09-03 11:03] LABS: ALB/GLOB RATIO 1.4 (1.1-1.8); ALKALINE PHOSPHATASE 77 U/L (40-129); ALT/SGPT 20 U/L (<41); AST/SGOT 22 U/L (10.0-50.0); BLOOD UREA NITROGEN 15 mg/dL (8-23); CKMB 1.8 ng/mL (<6.73); CREATINE PHOSPHOKINASE 26 U/L (39-308); CREATININE 1.1 mg/dL (0.7-1.2); EST GLOMERULAR FILTRATION RATE > 60 mL/min; GLUCOSE,RANDOM 124 mg/dL (74-109); TOTAL PROTEIN 6.9 g/dL (6.6-8.7)
[2017-09-03 11:08] LABS: THYROID STIMULATING HORMONE 2.08 uIU/mL (0.270-4.20)
[2017-09-03] MEDS ORDERED: FLU VAC QS 2017-18 (INPT, 6MO+) 60MCG/0.5ML IM ONE (12:21)
[2017-09-03] MEDS ORDERED: PNEUM 13-VAL/PF 0.5 ML IM ONE (12:21)
[2017-09-03] MEDS ORDERED: PANTOPRAZOLE SODIUM 40 MG TABLET PO ONE (12:30)
--- NOTE | 2017-09-03 13:17 | History & Physical ---
History of Present Illness - Date of Service Date of Service for History & Physical: 09/03/17 - History of Present Illness Admitting Diagnosis: 1. Cerebellar CVA. History of Present Illness: Mr. Abdul is a 67 y/o male with multiple co-morbidities inclusive of systolic HF s/p AICD, NSTEMI, PVD and carotid stenosis s/p stenting who presents with a 1 week history of lightheadedness and weakness.The patient describes intermittent unsteadiness of gait and feeling like he was going to fall when standing. He did not lose consciousness but did trip and fall hitting his head about 2 days ago. He denies slurring of speech, muscle pain or joint pain, chest pain, shortness of breath, nausea or vomiting. He has never had any strokes in the past. The patient is on multiple medications but denies any recent changes to dosing and reports compliance. He was able to drive to the hospital without difficulty. On arrival to the ED stroke protocol was initiated and CT head was suggestive of a subacute infarct in the cerbellar region. Travel Screening - Travel/Exposure Within Last 30 Days Have you traveled within the last 30 days?: No - Travel/Exposure Within Last Year Have you traveled outside the [place] in the last year?: No - Additonal Travel Details Have you been exposed to anyone with a communicable illness?: No - Travel Symptoms Symptom Screening: None Review of Systems Constitutional: Reports: As per HPI. Denies: Chills, Fever, Malaise, Night sweats, Weakness, Weight change Eyes: Reports: As per HPI. Denies: Eye discharge, Eye pain, Photophobia, Vision change ENT: Reports: As per HPI. Denies: Congestion, Dental pain, Ear pain, Epistaxis , Hearing loss, Throat pain Respiratory: Reports: Dyspnea Cardiovascular: Reports: Dyspnea on exertion Endocrine: Reports: As per HPI. Denies: Fatigue, Heat or cold intolerance, Polydipsia, Polyuria Gastrointestinal: Reports: As per HPI. Denies: Abdominal pain, Constipation, Diarrhea, Hematemesis, Hematochezia, Melena, Nausea, Vomiting Genitourinary: Reports: As per HPI. Denies: Dysuria, Frequency, Hematuria, Incontinence, Retention, Testicular pain, Testicular mass, Urgency Musculoskeletal: Reports: As per HPI. Denies: Arthralgia, Back pain, Gout, Joint swelling, Myalgia, Neck pain Neurological: Reports: Abnormal gait, Headache, Weakness. Denies: Numbness, Paresthesias, Seizure, Tingling, Tremors Psychiatric: Reports: As per HPI. Denies: Anxiety, Auditory hallucinations, Depression, Homicidal thoughts, Suicidal thoughts, Visual hallucinations Hematological/Lymphatic: Reports: As per HPI. Denies: Anemia, Blood Clots, Easy bleeding, Easy bruising, Swollen glands Past Medical History - SOCIAL HISTORY Smoking Status: Current every day smoker (1/2 pk daily) Alcohol Use: Occasional Alcohol Use Comment: 2 beers a day Drug Use: None - RESPIRATORY Hx Respiratory Disorders: Yes Hx COPD: Yes - CARDIOVASCULAR Hx Cardio Disorders: Yes Hx Cardiac Cath: Yes Hx Heart Attack: Yes (triple bypass) Hx Pacemaker/Defib: Yes - NEURO Hx Neuro Disorders: No Hx Paralysis: Yes (polio affecting RLE) - GI Hx GI Disorders: No - Hx Genitourinary Disorders: No - ENDOCRINE Hx Endocrine Disorders: No - MUSCULOSKELETAL Hx Musculoskeletal Disorders: No - PSYCH Hx Psych Problems: No - HEMATOLOGY/ONCOLOGY Hx Hematology/Oncology Disorders: No Family Medical History Any Significant Family History?: Yes Hx Heart Disease: Father, Grandparents H&P Meds/Allergies - Allergies Allergies: Allergies Allergy/AdvReac Type Severity Reaction Status Date / Time No Known Drug Allergies Allergy Verified 09/03/17 09:30 - Home Medications Home Medications Medication Instructions Recorded Confirmed Last Taken Furosemide [Furosemide] 40 mg PO BID 09/03/17 09/03/17 Unknown Ipratropium/Albuterol [Duoneb] 3 ml IH NOW PRN MDD 4 09/03/17 09/03/17 Unknown Sacubitril/Valsartan [Entresto 97 1 tab PO BID 09/03/17 09/03/17 Unknown mg-103 mg Tablet] - Active Medications Active Medications: Current Medications Aspirin (Ecotrin (Ec)) 81 mg PO DAILY [facility] Clopidogrel Bisulfate (Plavix) 75 mg PO DAILY [facility] Enoxaparin Sodium (Lovenox) 40 mg SC DAILY [facility] Furosemide (Lasix) 20 mg PO BIDDIUR [facility] Sodium Chloride () 1,000 mls @ 100 mls/hr IV .Q10H [facility] Simvastatin (Zocor) 20 mg PO QHS [facility] Physical Exam - Vital Signs Vital Signs: Vital Signs - Last 24 Hrs Temp Pulse Pulse Resp BP BP Pulse Ox 09/03/17 12:26 83 18 09/03/17 11:42 97.5 F L 83 18 114/78 98 09/03/17 11:34 79 20 106/73 97 - General General Appearance: Alert, Oriented x3, Cooperative, No acute distress Limitations: No limitations - Head Head exam: Atraumatic, Normocephalic, Normal inspection - Eye Eye exam: Normal appearance, PERRL, EOMI - ENT ENT exam: Normal exam, Mucous membranes moist, Normal external ear exam, Normal orophraynx, TM's normal bilaterally Throat exam: Normal inspection. negative: Tonsillar erythema, Tonsillar exudate - Neck Neck exam: Normal inspection, Full ROM. negative: Lymphadenopathy, Meningismus , Tenderness - Respiratory Respiratory exam: Normal lung sounds bilaterally. negative: Respiratory distress - Cardiovascular Cardiovascular Exam: Regular rate, Normal rhythm, Normal heart sounds Peripheral Pulses: 2+: Radial (R), Radial (L), Dorsalis Pedis (R), Dorsalis Pedis (L) - GI/Abdominal GI/Abdominal exam: Soft, Normal bowel sounds. negative: Tenderness - Rectal Rectal exam: Deferred - exam: Deferred - Extremities Extremities exam: Normal inspection, Full ROM, Normal capillary refill. negative: Tenderness - Neurological Neurological exam: Alert, CN II-XII intact, Motor sensory deficit (There is mild L arm and hand ataxia with an abnormal L hand finger to nose testing.), Normal gait, Oriented X3, Reflexes normal. negative: Abnormal gait, Altered - Psychiatric Psychiatric exam: negative: Anxious Results - Labs Result Diagrams: 09/03/17 09:45 09/03/17 09:45 VTE H&P Assessment - Risk for VTE Risk for VTE: Yes Risk Level: High Risk Assessment Date: 09/03/17 Risk Assessment Time: 13:20 VTE Orders Placed or Will Be Placed: Yes Stroke Assessment - TPA Administration Reason for Not Ordering t-PA: Not Indicated - NIH Stroke Scale 1a. Level of Consciousness: (0) Alert 1b. LOC Questions: (0) Answers Correctly 1c. LOC Commands: (0) Performs Tasks Correctly 2. Best Gaze: (0) Normal 3. Visual: (0) No Visual Loss 4. Facial Palsy: (0) Normal Symmetrical Movement 5a. Motor Arm Left: (0) No Drift 5b. Motor Arm Right: (0) No Drift 6a. Motor Leg Left: (0) No Drift 6b. Motor Leg Right: (0) No Drift 7. Limb Ataxia: (0) Absent 8. Sensory: (0) Normal 9. Best Language: (0) No Aphasia 11. Extinction/Inattention: (0) No Abnormality NIH Stroke Scale Date: 09/03/17 NIH Stroke Scale Time: 13:21 Plan - Inpatient Certification Inpatient Certification: Admit to inpatient care: Based on my medical assessment, after consideration of patient's risk factors (age, co-morbidities and patient presenting symptoms and acuity), I expect that this patient will remain in the hospital greater than or equal to two midnights and that the services needed warrant inpatient care because: Patient Risk Factors: [Fall/stroke] Estimated length of stay: [48] The patient may reasonably be expected to be discharged or transferred to a hospital within 96 hours after admission to [facility]. Services needed: PT/OT I certify that my determination is in accordance with my understanding of Medicare requirements for reasonable and necessary inpatient services. - Detailed Diagnosis and Plan (1) Cerebellar cerebrovascular accident (CVA) without late effect Plan: - pt presented with headache, unsteady gait and dizziness x 1 week. - Ct head w/o contrast shows subacute cerebellar infarct. NIH score - 0 - ASA 325mg given on arrival, cont ASA 81 mg, statin, hold Plavix and resume tomorrow. Hold all BP meds for now. IVF 0.9% @ 75mL/hr - neurochecks Q4H, bedside swallow evaluation, PT/OT to eval/treat, fall precautions. - CTA head/neck, carotid duplex pending, cont telemetry monitoring, accuchecks QAC/QHS over 24hrs - Lovenox 40mg QD, Protonix 40mg IV QD - cardiac diet after swallow eval. Current Visit: Yes Status: Acute Base Code: I63.9 - CEREBRAL INFARCTION, UNSPECIFIED Comment: As previously noted the Lovenox is to be started within 24 hours as per guidelines. No risk of bleeding identified at this time. (2) CHF (congestive heart failure) Plan: - EKG shows old LBBB, NSR no acute ST-T wave abnormalities. CXR - no congestion , NYHA class IIB - no recent echo in our system but as per report EF 10-15%, s/p AICD - currently on ASA, Statin, Entresto, Coreg ERIS and Lasix. - currently compensated with no indication of overload. BP medications to be resumed in am. Current Visit: No Status: Acute Qualifiers: Congestive heart failure type: unspecified congestive heart failure type Congestive heart failure chronicity: acute on chronic Qualified Code(s): I50.9 - Heart failure, unspecified Base Code: I50.9 - HEART FAILURE, UNSPECIFIED (3) COPD (chronic obstructive pulmonary disease) Plan: - no PFTs but likely GOLD II-III - CXR - negative for opacities/infiltrates, sats > 95% RA - respiratory therapy w/ Albuterol nebs Q4H PRN Current Visit: No Status: Chronic Qualifiers: COPD type: unspecified COPD Qualified Code(s): J44.9 - Chronic obstructive pulmonary disease, unspecified Base Code: J44.9 - CHRONIC OBSTRUCTIVE PULMONARY DISEASE, UNSPECIFIED Comment : 02/12/17- COPD likely contributing to SOB. Improved with duoneb breathign treatment. Patient continues to smoke but is thinking about quitting which I encouraged. He is not currently on any home medications for COPD and has not been to his pcp in 2 years. -continue duoneb q6hr at home -continue oxygen at home -updated Rx for nebulizer machine given at discharge -home O2 qualifier complete, RA biox 86% with amb (4) Coronary artery disease Plan: - s/p CABG x 2, recent NSTEMI s/p cath w/o intervention, ECG - NSR, on telemetry - cont ASA, BB, ERIS, statin, Nitrostat PRN, Current Visit: Yes Status: Acute Base Code: I25.10 - ATHSCL HEART DISEASE OF [place] CORONARY ARTERY W/O ANG PCTRS (5) Tobacco abuse Plan: - pt actively smoking 1/2 pk daily. - smoking cessation counseling for >5 mins Current Visit: Yes Status: Acute Base Code: Z72.0 - TOBACCO USE (6) DVT prophylaxis Plan: - Lovenox 40mg QD ordered Current Visit: No Status: Acute Base Code: [id number] - Comment: 02/12/17- patient is high risk for DVT with age, recent IN and mobillity. currently on plavix daily. Feel risk of bleed with plavix and lovenox daily will be high. -will add SCD's while in bed and encourage ambulation as tolerating. (7) DNR no code (do not resuscitate) Plan: Discussed code status w/ pt's spouse in the room. Current Visit: Yes Status: Acute Base Code: Z66 - DO NOT RESUSCITATE (8) Carotid stenosis Plan: - hx of carotid artery stenosis s/p stenting as per previous notes. - pt cannot recall L v. R endarerectomy. Carotid duplex ordered - on ASA, Plavix QD Current Visit: Yes Status: Acute Base Code: I65.29 - OCCLUSION AND STENOSIS OF UNSPECIFIED CAROTID ARTERY - Disposition Workup to be completed tomorrow in the am w/ Echo and carotid duplex. PT/OT pending. D/C likely tomorrow after diagnostics completed.
[2017-09-03] MEDS ORDERED: IPRATROPIUM/ALBUTEROL (0.5MG/3MG) NEB INH PRN (13:36)
--- NOTE | 2017-09-03 13:37 | CT SCAN REPORT ---
EXAM: CT OF THE BRAIN WITHOUT CONTRAST HISTORY: VERTIGO FOR THREE TO FOUR DAYS. TECHNIQUE: Sequential axial images were obtained from the foramen magnum to the vertex without contrast administration. FINDINGS: There is periventricular small vessel ischemic change. There is a subacute/remote appearing infarct in the inferior left cerebellum. No hemorrhage, mass effect, or midline shift. IMPRESSION: THERE IS PERIVENTRICULAR SMALL VESSEL ISCHEMIC CHANGE. THERE IS A SUBACUTE/ REMOTE APPEARING INFARCT IN THE INFERIOR LEFT CEREBELLUM. JOB NUMBER: [id number] MTDD
--- NOTE | 2017-09-03 13:39 | RADIOLOGY REPORT ---
EXAM: CHEST, TWO VIEWS HISTORY: INTERMITTENT SYNCOPE. TECHNIQUE: Frontal and lateral views of the chest were performed. FINDINGS: Left sided pacing device in place. The heart size is normal. The lung durbin are clear. There is osteopenia. IMPRESSION: LEFT SIDED PACING DEVICE IN PLACE. NO ACUTE PROCESS. JOB NUMBER: [id number] MTDD
[2017-09-03] MEDS: 0.9 % SODIUM CHLORIDE 1000ML 1,000 ML IV SCH ×2 (13:41→23:00)
[2017-09-03] MEDS ORDERED: IPRATROPIUM/ALBUTEROL (0.5MG/3MG) NEB INH SCH (14:00)
[2017-09-03] MEDS: FUROSEMIDE 20 MG TABLET PO SCH (16:47)
--- NOTE | 2017-09-03 19:06 | US VENOUS DOPPLER REPORT ---
DATE: 09/03/2017. EXAM: ARTERIAL DOPPLER. HISTORY: Cerebrovascular accident. TECHNIQUE: Sonographic evaluation of the vasculature of the neck was performed with the addition of Doppler and spectral analysis. FINDINGS: Right ICA is 188.5 cm/second. Right CCA is 43 cm/second. Right ECA is 116 cm/second. Right vertebral is 38 cm/second. Antegrade Flow: ICA/CCA ratio is 4.3. Left ICA is 276 cm/second. Left CCA is 46 cm/second. Left ECA is 117 cm/second. No flow identified in the left vertebral. The ICA/CCA ratio is 6.0. IMPRESSION: 1. HIGH-GRADE STENOSIS IN BOTH INTERNAL CAROTID ARTERIES. 2. FLOW IS NOT WELL IDENTIFIED IN THE LEFT VERTEBRAL ARTERY. JOB NUMBER: [id number] MTDD
[2017-09-03] MEDS ORDERED: FLUTICASONE/SALMETEROL 250/50 DISKUS INH SCH (22:00)
[2017-09-03] MEDS ORDERED: SIMVASTATIN 20 MG TABLET PO SCH (22:00)
[2017-09-04] MEDS ORDERED: ENOXAPARIN 40 MG/0.4 ML SYR SC SCH (10:00)
[2017-09-04] MEDS ORDERED: CARVEDILOL 12.5 MG TABLET PO SCH ×2 (10:00)
[2017-09-04] MEDS ORDERED: ASPIRIN 81 MG TABEC PO SCH (10:00)
[2017-09-04] MEDS ORDERED: CLOPIDOGREL 75MG TABLET PO SCH (10:00)
[2017-09-04] MEDS ORDERED: LISINOPRIL 10 MG TABLET PO SCH (10:00)
[2017-09-04] MEDS: FUROSEMIDE 20 MG TABLET PO SCH (12:46)
--- NOTE | 2017-09-04 14:24 | Discharge Summary ---
Providers Discharge Summary Date: 09/04/17 Date of admission: 09/03/17 11:29 Attending physician: Zack Warren Physical Exam - Vital Signs Vital Signs: Vital Signs - Last 24 Hrs Temp Pulse Pulse Resp BP Pulse Ox 09/04/17 13:00 98.0 F 89 18 128/67 97 09/04/17 09:38 18 09/04/17 09:00 98.0 F 85 18 130/83 97 09/04/17 05:00 97.7 F 81 20 105/72 97 09/04/17 01:00 97.5 F L 86 22 113/67 95 09/03/17 21:00 98.1 F 80 18 121/72 95 09/03/17 17:42 98.2 F 84 18 115/58 97 - General General Appearance: Alert, Oriented x3, Cooperative, No acute distress Limitations: No limitations - Head Head exam: Atraumatic, Normocephalic, Normal inspection - Eye Eye exam: Normal appearance, PERRL, EOMI - ENT ENT exam: Normal exam, Mucous membranes moist, Normal external ear exam, Normal orophraynx, TM's normal bilaterally Throat exam: Normal inspection. negative: Tonsillar erythema, Tonsillar exudate - Neck Neck exam: Normal inspection, Full ROM. negative: Lymphadenopathy, Meningismus , Tenderness - Respiratory Respiratory exam: Normal lung sounds bilaterally. negative: Respiratory distress - Cardiovascular Cardiovascular Exam: Regular rate, Normal rhythm, Normal heart sounds Peripheral Pulses: 2+: Radial (R), Radial (L), Dorsalis Pedis (R), Dorsalis Pedis (L) - GI/Abdominal GI/Abdominal exam: Soft, Normal bowel sounds. negative: Tenderness - Rectal Rectal exam: Deferred - exam: Deferred - Extremities Extremities exam: Normal inspection, Full ROM, Normal capillary refill. negative: Tenderness - Back Back exam: Reports: Normal inspection - Neurological Neurological exam: Abnormal gait (ataxic ), Alert, CN II-XII intact, Oriented X3 , Reflexes normal, Other (dizziness). negative: Altered - Psychiatric Psychiatric exam: negative: Anxious Hospitalization - Hospitalization Admission Diagnosis: 1. Cerebellar CVA. - Problem List/Discharge Diagnosis (1) Cerebellar cerebrovascular accident (CVA) without late effect Plan: - pt presented with headache, unsteady gait and dizziness x 1 week. - CT head w/o contrast shows left subacute cerebellar infarct. NIH score - 0 - ASA 325mg given on arrival, cont ASA 81 mg, statin, hold Plavix. Hold all BP meds for now. IVF kVO - neurochecks Q2H, bedside swallow evaluation, PT/OT to eval/treat, fall precautions. - CTA head/neck, carotid duplex - bilateral high grade stenosis, cont telemetry monitoring, accuchecks QAC/QHS over 24hrs - was able to speak to Dr. Mary regarding the patient's previous workup. Pt had stent placed on the right but no intervention on the left. He has had serial monitoring with duplex and CT with recent imaging showing patentcy of the right carotid stent. Current Visit: Yes Status: Acute Base Code: I63.9 - CEREBRAL INFARCTION, UNSPECIFIED (2) CHF (congestive heart failure) Plan: - EKG shows old LBBB, NSR no acute ST-T wave abnormalities. CXR - no congestion , compensated NYHA class IIB - no recent echo in our system but as per report EF 10-15%, s/p AICD - currently on ASA, Statin, Entresto, Coreg ERIS and Lasix. Current Visit: No Status: Acute Discharge Diagnosis: Congestive heart failure type: unspecified congestive heart failure type Congestive heart failure chronicity: acute on chronic Qualified Code(s): I50.9 - Heart failure, unspecified Base Code: I50.9 - HEART FAILURE, UNSPECIFIED (3) COPD (chronic obstructive pulmonary disease) Plan: - no PFTs but likely GOLD II-III - CXR - negative for opacities/infiltrates, sats > 95% RA - respiratory therapy w/ Albuterol nebs Q4H PRN Current Visit: No Status: Inactive Discharge Diagnosis: COPD type: unspecified COPD Qualified Code(s): J44.9 - Chronic obstructive pulmonary disease, unspecified Base Code: J44.9 - CHRONIC OBSTRUCTIVE PULMONARY DISEASE, UNSPECIFIED Comment : 02/12/17- COPD likely contributing to SOB. Improved with duoneb breathign treatment. Patient continues to smoke but is thinking about quitting which I encouraged. He is not currently on any home medications for COPD and has not been to his pcp in 2 years. -continue duoneb q6hr at home -continue oxygen at home -updated Rx for nebulizer machine given at discharge -home O2 qualifier complete, RA biox 86% with amb (4) Coronary artery disease Plan: - s/p CABG x 2, recent NSTEMI s/p cath w/o intervention, ECG - NSR, on telemetry - cont ASA, BB, ERIS, statin, Nitrostat PRN, Current Visit: Yes Status: Acute Base Code: I25.10 - ATHSCL HEART DISEASE OF [place] CORONARY ARTERY W/O ANG PCTRS (5) Tobacco abuse Plan: - pt actively smoking 1/2 pk daily. - smoking cessation counseling for >5 mins Current Visit: Yes Status: Acute Base Code: Z72.0 - TOBACCO USE (6) DVT prophylaxis Plan: - Lovenox 40mg QD ordered Current Visit: No Status: Acute Base Code: NLA1001 - (7) Carotid stenosis Plan: - hx of high grade bilateral stenosis s/p stenting on the left, US carotid notes bilateral stenosis. I've reviewed and discussed with the patient's storage receipt poster. - currently on ASA only, Plavix held. - discussed with Dr. Mary and pt will be transferred to stroke unit at [facility] for further workup. Current Visit: Yes Status: Acute Base Code: I65.29 - OCCLUSION AND STENOSIS OF UNSPECIFIED CAROTID ARTERY (8) DNR no code (do not resuscitate) Plan: Discussed code status w/ pt's spouse in the room. Current Visit: Yes Status: Acute Base Code: Z66 - DO NOT RESUSCITATE - Hospitalization Course Disposition: Acute Care Hospital Transfer Hospital Course: Mr. Abdul is a 67 y/o male who presented to the ED with a 1 week history of dizziness and unsteady gait. On arrival CT head w/o contrast was doneand showed subacute infarct of the left cerebellar region. The patient was started on ASA, statin, BP and Plavix held and stroke workup was initiated. US bilateral carotids read high grade stenosis bilaterally which then prompted need for discussion with the patient's storage receipt poster Dr. Mary who is more familiar with the patient. Considering the patient's symptoms and multiple co-morbidities it was decided to transfer the patient to [facility]'s stroke unit. I spoke the admitting physician there who has agreed to take the patient on step down unit for further evaluation and continued neurochecks. Procedures: Imaging and X-Rays 09/03/17 12:23 ARTERIAL DOPPLER CAROTID DORA [US] Stat Abnormal Labs: Abnormal Lab Results 09/03/17 09/04/17 Range/Units 22:16 05:40 POC Glucose 167 H (70-110) mg/dL Triglycerides 258 H (<150) mg/dL Cholesterol 222 H (<200) mg/dL LDL Cholesterol [place] 158.0 H (0-100) mg/dL HDL Cholesterol 34 L (40-60) mg/dL Condition at Discharge: (2) Stable Discharge Medications - Discharge Medications Home Medications: Ambulatory Orders Lisinopril 10 mg PO DAILY 02/06/15 [Last Taken 09/02/17] Lovastatin 40 mg PO QHS 02/06/15 [Last Taken 09/02/17] Multivitamin [Multi-Vitamin Daily] 1 tab PO DAILY 12/12/16 [Last Taken 09/02/17] Furosemide [Furosemide] 40 mg PO BID 09/03/17 [Last Taken Unknown] Ipratropium/Albuterol [Duoneb] 3 ml IH NOW PRN MDD 4 09/03/17 [Last Taken Unknown] Sacubitril/Valsartan [Entresto 97 mg-103 mg Tablet] 1 tab PO BID 09/03/17 [Last Taken Unknown] Discharge Plan - Discharge Instructions Activity at Discharge: Other (Transfer to facility ) Diet at Discharge: Low Salt Diet Quality Measures - Quality Measures Quality Measures: Advance Directives, Coronary Artery Disease: Antiplatelet Therapy, Documentation of Current Medications in Medical Record, Elder Maltreatment Screen and Follow-Up Plan, Heart Failure, Screening for High Blood Pressure and F/U Documented - Current Medications Quality Measure: Measure #130: Documentation of Current Medications Documentation of Current Medications: <Current Medications Documented/Reviewed> [G9265] - Blood Pressure Screening Quality Measure: Screening for High Blood Pressure and Follow-Up Documented Does Patient Have Any of the Following: Active Dx of HTN Blood Pressure Classification: Normal BP Reading Systolic Measurement: 106 Diastolic Measurement: 73 Screening for High Blood Pressure: Patient Exclusion, Hx of HTN [G9744] - Coronary Artery Disease Quality Measure: Measure #6: Coronary Artery Disease (CAD) Antiplatelet Therapy: <ASA or clopidogrel prescribed> [6576F] - Heart Failure (ERIS/ARB Therapy) Quality Measure: Heart Failure Left Ventricular Systolic Function: LV Ejection Fraction less than 40% [3021F] ERIS Inhibitor or ARB Therapy for LVSD: <ERIS Inhibitor or ARB therapy prescribed or currently taken> [4010F] - Heart Failure (Beta-angel Therapy) Quality Measure: Heart Failure Left Ventricular Systolic Function: LV Ejection Fraction less than 40% [3021F] Beta-Angel Therapy for LVEF < 40%: <Beta-Angel Therapy Prescribed> [T2716] - Advance Directives Quality Measure: Measure #47: Care Plan Advance Directives Established: No Advance Directives Information Provided To Patient: Yes Advance Directives on File: No Living Will: No Power of Floor Polisher: No Power of Floor Polisher Name: per pt, he would like us to contact Peyton Advance Care Planning: <Care Plan/Decision Maker Documented; Discussed & Documented> [9013F] - Elder Abuse Suspicion Index Screening: Elder Abuse Suspicion Index Screening Rely on people for bathing, dressing, shopping, banking, etc: No Prevented from getting food, clothes, medication, etc: No Made to feel shamed or threatened by someone: No Forced to sign papers or use money against will: No Feel afraid, touched in ways not wanted or hurt physically: No Poor eye contact, withdrawn, malnourished, cuts or bruises: No Screening Result: Negative result EASI Reference Information: Mckenzie ALVARADO, Angela C, Abhinav D, Stepan Owen.Development and validation of a tool to assist physicians identification of elder abuse: The Elder Abuse Suspicion Index (EASI ). Journal of Elder Abuse and Neglect, 2008; 20 (3): 276-300. - Elder Maltreatment Screen Quality Measures: Elder Maltreatment Screen and Follow-Up Plan Elder Maltreatment Screen: <Negative, No Follow-Up Plan Required> [C3891]
--- NOTE | 2017-09-04 14:43 | Physical Therapy Tx Note ---
Physical Therapy Tx Note - Treatment Note Physical Therapy Tx Note: Detail (The patient was referred to PT for an evaluation. RN recommended at inpatient rounding to hold PT due to medical status. Patient was transferring to [facility] in the pm.)
--- NOTE | 2017-09-04 14:44 | Occupational Therapy Tx Note ---
Occupational Therapy Tx Note - Treatment Note Occupational Therapy Treatment Note: Detail (Evaluation was not completed by OT. Ns staff asked OT and PT to hold on completing evaluation due to pt's possible t/f for more advanced medical intervention. Pt is being transferred to [facility] at this time.)
== END 2017-09-04 18:20 | disposition short-term general hospital (02) | DRG 65 ==
LOC: ER 09:18 → MEDSURG 11:29
PROVIDERS: ADMIT Internal Medicine; ATTEND Internal Medicine
DX: I63.8 Other cerebral infarction (principal); I25.810 Atherosclerosis of coronary artery bypass graft(s) without angina pectoris; I50.9 Heart failure, unspecified; I65.29 Occlusion and stenosis of unspecified carotid artery; Z95.810 Presence of automatic (implantable) cardiac defibrillator; F17.210 Nicotine dependence, cigarettes, uncomplicated
CPT/HCPCS: 36416; 70450; 71020; 80053; 80061; 82550; 82553; 82948; 84443; 84484; 85025; 85610; 85730; 93005; 93010; 93041; 93880; 99223; 99239; 99285; J1650; J7030

== ENCOUNTER 2017-11-02 08:32 | Emergency (ER) | payer MEDICARE ==
[2017-11-02] MEDS ORDERED: HYDROMORPHONE HCL 1 MG/ML SYRINGE IVP ONE (08:55)
[2017-11-02] MEDS ORDERED: PROMETHAZINE HCL 6.25 MG in 0.9 % SODIUM CHLORIDE 100ML 100 ML IVPB ONE (08:56)
--- NOTE | 2017-11-02 08:59 | Emergency Department Record ---
History of Present Illness - General Chief complaint: Abscess Stated complaint: LEFT SIDE ABD PAIN Time Seen by Provider: 11/02/17 08:43 Source: Patient Mode of Arrival: Ambulatory Limitations: No limitations - History of Present Illness Initial comments: pt has abscess by rectum that is exquisitely tender and hurts into his back complaint: Abscess/boil Onset/Timin -: Days(s) Hx Tetanus Toxoid Vaccination: Yes Year of Tetanus Vaccination: unsure Location: Back, Buttocks, Genitals Severity scale (1-10): 10 Improves with: None Worsens with: Movement, Other Associated symptoms: Denies other symptoms Treatments Prior to Arrival: None - Related Data Previous Rx's Medication Instructions Recorded Clindamycin HCl 300 mg PO Q6HR #40 capsule 11/02/17 Clindamycin HCl [Cleocin HCl] 150 mg PO Q6H #40 cap 11/02/17 Hydrocodone/Acetaminophen [Alpha 1 each PO Q6HR #10 tablet 11/02/17 5-325 Tablet] Allergies Allergy/AdvReac Type Severity Reaction Status Date / Time No Known Drug Allergies Allergy Verified 11/02/17 08:43 Travel Screening - Travel/Exposure Within Last 30 Days Have you traveled within the last 30 days?: No - Travel/Exposure Within Last Year Have you traveled outside the [place] in the last year?: No - Additonal Travel Details Have you been exposed to anyone with a communicable illness?: No - Travel Symptoms Symptom Screening: None Review of Systems Reviewed: No additional complaints except as noted below Constitutional: Reports: As per HPI. Denies: Chills, Fever, Malaise, Night sweats, Weakness, Weight change Eyes: Reports: As per HPI. Denies: Eye discharge, Eye pain, Photophobia, Vision change ENT: Reports: As per HPI. Denies: Congestion, Dental pain, Ear pain, Epistaxis , Hearing loss, Throat pain Respiratory: Reports: As per HPI. Denies: Cough, Dyspnea, Hemoptysis, Stridor, Wheezes Cardiovascular: Reports: As per HPI. Denies: Arrhythmia, Chest pain, Dyspnea on exertion, Edema, Murmurs, Orthopnea, Palpitations, Paroxysmal nocturnal dyspnea, Rheumatic Fever, Syncope Endocrine: Reports: As per HPI. Denies: Fatigue, Heat or cold intolerance, Polydipsia, Polyuria Gastrointestinal: Reports: As per HPI. Denies: Abdominal pain, Constipation, Diarrhea, Hematemesis, Hematochezia, Melena, Nausea, Vomiting Genitourinary: Reports: As per HPI. Denies: Dysuria, Frequency, Hematuria, Incontinence, Retention, Testicular pain, Testicular mass, Urgency Musculoskeletal: Reports: As per HPI. Denies: Arthralgia, Back pain, Gout, Joint swelling, Myalgia, Neck pain Skin: Reports: As per HPI. Denies: Bruising, Change in color, Change in hair/ nails, Lesions, Pruritus, Rash Neurological: Reports: As per HPI. Denies: Abnormal gait, Confusion, Headache, Numbness, Paresthesias, Seizure, Tingling, Tremors, Vertigo, Weakness Psychiatric: Reports: As per HPI. Denies: Anxiety, Auditory hallucinations, Depression, Homicidal thoughts, Suicidal thoughts, Visual hallucinations Hematological/Lymphatic: Reports: As per HPI. Denies: Anemia, Blood Clots, Easy bleeding, Easy bruising, Swollen glands Past Medical History - SOCIAL HISTORY Smoking Status: Current every day smoker Alcohol Use: Occasional Drug Use: None - RESPIRATORY Hx Respiratory Disorders: Yes Hx COPD: Yes - CARDIOVASCULAR Hx Cardio Disorders: Yes Hx Cardiac Cath: Yes Hx Heart Attack: Yes (triple bypass) Hx Pacemaker/Defib: Yes - NEURO Hx Neuro Disorders: No Hx Paralysis: Yes (polio affecting RLE) - GI Hx GI Disorders: No - Hx Genitourinary Disorders: No - ENDOCRINE Hx Endocrine Disorders: No - MUSCULOSKELETAL Hx Musculoskeletal Disorders: No - PSYCH Hx Psych Problems: No - HEMATOLOGY/ONCOLOGY Hx Hematology/Oncology Disorders: No Family Medical History Any Significant Family History?: No Hx Heart Disease: Father, Grandparents Physical Exam - General General Appearance: Alert, Oriented x3, Cooperative, Mild distress - Head Head exam: Normal inspection - Eye Eye exam: Normal appearance, PERRL Pupils: Normal accommodation - ENT ENT exam: Normal exam, Mucous membranes moist, Normal external ear exam, Normal orophraynx Ear exam: Normal external inspection. negative: External canal tenderness Nasal Exam: Normal inspection. negative: Discharge, Sinus tenderness Mouth exam: Normal external inspection, Tongue normal Teeth exam: Normal inspection. negative: Dental caries Throat exam: Normal inspection. negative: Tonsillar erythema, Tonsillar exudate - Neck Neck exam: Normal inspection, Full ROM. negative: Tenderness - Respiratory Respiratory exam: Wheezes (pt refusing aerosol). negative: Respiratory distress - Cardiovascular Cardiovascular Exam: Normal rhythm, Normal heart sounds, Tachycardia - GI/Abdominal GI/Abdominal exam: Soft, Normal bowel sounds. negative: Tenderness - Rectal Rectal exam: Mass, Tenderness - exam: Deferred - Extremities Extremities exam: Normal inspection, Full ROM, Normal capillary refill. negative: Tenderness - Back Back exam: Reports: Normal inspection, Full ROM. Denies: Muscle spasm, Rash noted, Tenderness - Neurological Neurological exam: Alert, CN II-XII intact, Normal gait, Oriented X3 - Psychiatric Psychiatric exam: Normal affect, Normal mood - Skin Skin exam: Dry, Intact, Normal color, Warm Course Vital Signs 11/02/17 08:36 Temperature 98.0 F Pulse Rate 116 H Respiratory 18 Rate Blood Pressure 154/101 Pulse Ox 97 - Reevaluation(s) Reevaluation #1: 11/02/17 11:10 pt had copd flare w decreased sat so was given a duoneb. Medical Decision Making - Lab Data Result diagrams: 11/02/17 09:10 11/02/17 09:10 Disposition Disposition: Discharge Clinical Impression: Perirectal abscess Disposition: Home, Self-Care Condition: (1) Good Instructions: Abscess (ED) Additional Instructions: follow up with dr lawton. return sooner if worse. sitz baths 4 times a day. recheck tomorrow by dr lawton or dr pozo or here. Prescriptions: Clindamycin HCl 300 mg PO Q6HR #40 capsule Hydrocodone/Acetaminophen [Alpha 5-325 Tablet] 1 each PO Q6HR #10 tablet Clindamycin HCl [Cleocin HCl] 150 mg PO Q6H #40 cap Forms: Patient Portal Access Quality - Quality Measures Quality Measures: N/A - Blood Pressure Screening Does Patient Have Any of the Following: No Blood Pressure Classification: Hypertensive Reading Systolic Measurement: 154 Diastolic Measurement: 101 Screening for High Blood Pressure: < First Hypertensive BP, F/U Documented > [ G8950] First Hypertensive Follow-up Interventions: Follow-up with rescreen GT 1 day and LT 4 weeks.
[2017-11-02 09:26] LABS: HEMATOCRIT 42.7 % (42.0-52.0); HEMOGLOBIN 14.3 gm/dl (14.0-18.0); MEAN CELL VOLUME 94.7 fl (81-97); MEAN CORPUSCULAR HEMOGLOBIN 31.7 pg (27-33); MEAN CORPUSCULAR HGB CONC 33.5 g/dl (32-36); MEAN PLATELET VOLUME 11.1 fl (7.4-10.4); PLATELET COUNT 171 K/uL (130-400); RED BLOOD COUNT 4.51 M/uL (4.40-5.70); WHITE BLOOD COUNT W/O DIFF 5.2 K/uL (4.2-12.2)
[2017-11-02] MEDS ORDERED: IPRATROPIUM/ALBUTEROL (0.5MG/3MG) NEB INH ONE (10:01)
[2017-11-02 10:10] LABS: BLOOD UREA NITROGEN 9 mg/dL (8-23); GLUCOSE,RANDOM 114 mg/dL (74-109)
[2017-11-02 10:11] LABS: CREATININE 0.9 mg/dL (0.7-1.2); EST GLOMERULAR FILTRATION RATE > 60 mL/min
[2017-11-02] MEDS ORDERED: CLINDAMYCIN 600MG/50ML PREMIX 600 MG/50 ML BAG IVPB ONE (11:07)
--- NOTE | 2017-11-02 11:27 | Emergency Department Record ---
History of Present Illness - General Chief complaint: Abscess Stated complaint: LEFT SIDE ABD PAIN Time Seen by Provider: 11/02/17 08:43 Source: Patient Mode of Arrival: Ambulatory Limitations: No limitations - History of Present Illness MD complaint: Abscess/boil Onset/Timin -: Days(s) Hx Tetanus Toxoid Vaccination: Yes Year of Tetanus Vaccination: unsure Location: Back, Buttocks, Genitals Severity scale (1-10): 10 Improves with: None Worsens with: Movement, Other Associated symptoms: Denies other symptoms Treatments Prior to Arrival: None - Related Data Previous Rx's Medication Instructions Recorded Clindamycin HCl 300 mg PO Q6HR #40 capsule 11/02/17 Clindamycin HCl [Cleocin HCl] 150 mg PO Q6H #40 cap 11/02/17 Hydrocodone/Acetaminophen [[place] 1 each PO Q6HR #10 tablet 11/02/17 5-325 Tablet] Allergies Allergy/AdvReac Type Severity Reaction Status Date / Time No Known Drug Allergies Allergy Verified 11/02/17 08:43 Travel Screening - Travel/Exposure Within Last 30 Days Have you traveled within the last 30 days?: No - Travel/Exposure Within Last Year Have you traveled outside the [place] in the last year?: No - Additonal Travel Details Have you been exposed to anyone with a communicable illness?: No - Travel Symptoms Symptom Screening: None Review of Systems Constitutional: Reports: As per HPI. Denies: Chills, Fever, Malaise, Night sweats, Weakness, Weight change Eyes: Reports: As per HPI. Denies: Eye discharge, Eye pain, Photophobia, Vision change ENT: Reports: As per HPI. Denies: Congestion, Dental pain, Ear pain, Epistaxis , Hearing loss, Throat pain Respiratory: Reports: As per HPI. Denies: Cough, Dyspnea, Hemoptysis, Stridor, Wheezes Cardiovascular: Reports: As per HPI. Denies: Arrhythmia, Chest pain, Dyspnea on exertion, Edema, Murmurs, Orthopnea, Palpitations, Paroxysmal nocturnal dyspnea, Rheumatic Fever, Syncope Endocrine: Reports: As per HPI. Denies: Fatigue, Heat or cold intolerance, Polydipsia, Polyuria Gastrointestinal: Reports: As per HPI. Denies: Abdominal pain, Constipation, Diarrhea, Hematemesis, Hematochezia, Melena, Nausea, Vomiting Genitourinary: Reports: As per HPI. Denies: Dysuria, Frequency, Hematuria, Incontinence, Retention, Testicular pain, Testicular mass, Urgency Musculoskeletal: Reports: As per HPI. Denies: Arthralgia, Back pain, Gout, Joint swelling, Myalgia, Neck pain Skin: Reports: As per HPI. Denies: Bruising, Change in color, Change in hair/ nails, Lesions, Pruritus, Rash Neurological: Reports: As per HPI. Denies: Abnormal gait, Confusion, Headache, Numbness, Paresthesias, Seizure, Tingling, Tremors, Vertigo, Weakness Psychiatric: Reports: As per HPI. Denies: Anxiety, Auditory hallucinations, Depression, Homicidal thoughts, Suicidal thoughts, Visual hallucinations Hematological/Lymphatic: Reports: As per HPI. Denies: Anemia, Blood Clots, Easy bleeding, Easy bruising, Swollen glands Past Medical History - SOCIAL HISTORY Smoking Status: Current every day smoker Alcohol Use: Occasional Drug Use: None - RESPIRATORY Hx Respiratory Disorders: Yes Hx COPD: Yes - CARDIOVASCULAR Hx Cardio Disorders: Yes Hx Cardiac Cath: Yes Hx Heart Attack: Yes (triple bypass) Hx Pacemaker/Defib: Yes - NEURO Hx Neuro Disorders: No Hx Paralysis: Yes (polio affecting RLE) - GI Hx GI Disorders: No - Hx Genitourinary Disorders: No - ENDOCRINE Hx Endocrine Disorders: No - MUSCULOSKELETAL Hx Musculoskeletal Disorders: No - PSYCH Hx Psych Problems: No - HEMATOLOGY/ONCOLOGY Hx Hematology/Oncology Disorders: No Family Medical History Any Significant Family History?: No Hx Heart Disease: Father, Grandparents Physical Exam - General Limitations: No limitations Course Vital Signs 11/02/17 11/02/17 11/02/17 08:36 09:52 10:00 Temperature 98.0 F Pulse Rate 116 H Pulse Rate [ 108 H 110 H Pulse Ox Probe] Respiratory 18 18 18 Rate Blood Pressure 154/101 Blood Pressure 140/103 145/92 [Left Arm] Pulse Ox 97 92 L 91 L 11/02/17 10:14 Temperature Pulse Rate 109 H Pulse Rate [ Pulse Ox Probe] Respiratory 19 Rate Blood Pressure Blood Pressure [Left Arm] Pulse Ox 97 Medical Decision Making - Lab Data Result diagrams: 11/02/17 09:10 11/02/17 09:10 Lab Results 11/02/17 11/02/17 Range/Units 09:10 09:10 WBC 5.2 (4.2-12.2) K/uL RBC 4.51 (4.40-5.70) M/uL Hgb 14.3 (14.0-18.0) gm/dl Hct 42.7 (42.0-52.0) % MCV 94.7 (81-97) fl MCH 31.7 (27-33) pg MCHC 33.5 (32-36) g/dl RDW 16.0 H (11.5-14.5) % Plt Count 171 (130-400) K/uL MPV 11.1 H (7.4-10.4) fl Neutrophils % 65.0 (47-80) % Band Neutrophils % 2.0 (0-5) % Eosinophils % Not Reportable Basophils % Not Reportable Lymphocytes 18.0 (16-45) % Monocytes 10.0 H (0-9) % Eosinophil Count 5.0 (0-6) % Sodium 137 (136-145) mmol/L Potassium 4.4 (3.4-4.5) mmol/L Chloride 99 (98-107) mmol/L Carbon Dioxide 24.0 (22-29) mmol/L Anion Gap 14.0 (7-16) BUN 9 (8-23) mg/dL Creatinine 0.9 (0.7-1.2) mg/dL Estimated GFR > 60 mL/min Random Glucose 114 H (74-109) mg/dL Calcium 10.1 (8.8-10.2) mg/dL Disposition Clinical Impression: Perirectal abscess Disposition: Home, Self-Care Condition: (1) Good Instructions: Abscess (ED) Additional Instructions: follow up with dr almanzar. return sooner if worse. sitz baths 4 times a day. recheck tomorrow by dr almanzar or dr pozo or here. Prescriptions: Clindamycin HCl 300 mg PO Q6HR #40 capsule Hydrocodone/Acetaminophen [[place] 5-325 Tablet] 1 each PO Q6HR #10 tablet Clindamycin HCl [Cleocin HCl] 150 mg PO Q6H #40 cap Referrals: Jose Almanzar [DOCTOR OF OSTEOPATH] - DEBBIE POZO [DOCTOR OF OSTEOPATH] - Forms: Patient Portal Access Quality - Quality Measures Quality Measures: N/A - Blood Pressure Screening Does Patient Have Any of the Following: No Blood Pressure Classification: Hypertensive Reading Systolic Measurement: 154 Diastolic Measurement: 101 Screening for High Blood Pressure: < First Hypertensive BP, F/U Documented > [ G8950] First Hypertensive Follow-up Interventions: Follow-up with rescreen GT 1 day and LT 4 weeks.
--- NOTE | 2017-11-03 07:58 | CT SCAN REPORT ---
EXAM: CT SCAN OF THE PELVIS WITHOUT CONTRAST HISTORY: LEFT BUTTOCK AREA ABSCESS. PAIN. TECHNIQUE: Standard CT imaging of the pelvis was performed in the axial plane without contrast. Additional coronal and sagittal reformatted images were also performed. Comparison: 12/04/12. FINDINGS: There is a loculated fluid collection within the left perianal soft tissues suggesting a perianal abscess. This measures 2.5 x 1 x 2.5 cm. There is mild nonspecific fat stranding within the subcutaneous fat of the medial gluteal regions bilaterally, left greater than right. There is no associated abscess or soft tissue air at these locations. There is mild skin thickening within the inferior left gluteal region which may represent minor cellulitis. There are scattered diverticula within the sigmoid colon with no evidence for acute diverticulitis. The visualized intraperitoneal contents are otherwise normal. Degenerative changes are present within the spine. No acute osseous abnormalities are identified. IMPRESSION: 1. PROBABLE LEFT PERIANAL ABSCESS MEASURING 2.5 X 1 X 2.5 CM. 2. MINOR SKIN THICKENING AND SUBCUTANEOUS EDEMA WITHIN THE INFERIOR LEFT GLUTEAL REGION SUGGESTING CELLULITIS. THERE IS NO ABSCESS AT THIS LOCATION. 3. SIGMOID DIVERTICULOSIS WITH NO DIVERTICULITIS. JOB NUMBER: [id number] [facility]
== END 2017-11-02 11:54 | disposition home or self-care (01) ==
LOC: ER 08:32
DX: K61.1 Rectal abscess (principal); J44.1 Chronic obstructive pulmonary disease with (acute) exacerbation; F17.210 Nicotine dependence, cigarettes, uncomplicated
CPT/HCPCS: 99284 ×2; 96365; 96366; 96375; 80048; 85027; 72192; 94640; J1170; J2550

== ENCOUNTER 2017-11-03 09:31 | Day surgery (SDC) | payer MEDICARE ==
[2017-11-03] MEDS ORDERED: CLINDAMYCIN 600MG/50ML PREMIX 600 MG/50 ML BAG IVPB ONE (10:29)
--- NOTE | 2017-11-03 10:29 | Emergency Department Record ---
History of Present Illness - General Chief Complaint: Wound, check Stated Complaint: CYST WORST Time Seen by Provider: 11/03/17 10:08 Source: Patient Mode of arrival: Ambulatory Limitations: No limitations - History of Present Illness Initial Comments: pt was here yesterday for perianal abscess. he was scanned and given iv abx. abscess was small and deep. he was told to get his rxs fillend and call the surgeon this am. he didnot get his rxs filled and states he got no answer when he called the surgeon. he is back now saying hes worse. Complaint: Wound re-check Onset/Timin -: Days(s) Initial Visit For: Abscess Returns Today for: Persistent/worsening pain related to initial visit Symptoms Since Prior Visit: Worsening pain, Worsening swelling Associated Symptoms: None - Related Data Previous Rx's Medication Instructions Recorded Clindamycin HCl 300 mg PO Q6HR #40 capsule 11/02/17 Clindamycin HCl [Cleocin HCl] 150 mg PO Q6H #40 cap 11/02/17 Hydrocodone/Acetaminophen [[place] 1 each PO Q6HR #10 tablet 11/02/17 5-325 Tablet] Allergies Allergy/AdvReac Type Severity Reaction Status Date / Time No Known Drug Allergies Allergy Verified 11/02/17 08:43 Travel Screening - Travel/Exposure Within Last 30 Days Have you traveled within the last 30 days?: No - Travel/Exposure Within Last Year Have you traveled outside the [place] in the last year?: No - Additonal Travel Details Have you been exposed to anyone with a communicable illness?: No - Travel Symptoms Symptom Screening: None Review of Systems Reviewed: No additional complaints except as noted below Constitutional: Reports: As per HPI. Denies: Chills, Fever, Malaise, Night sweats, Weakness, Weight change Eyes: Reports: As per HPI. Denies: Eye discharge, Eye pain, Photophobia, Vision change ENT: Reports: As per HPI. Denies: Congestion, Dental pain, Ear pain, Epistaxis , Hearing loss, Throat pain Respiratory: Reports: As per HPI. Denies: Cough, Dyspnea, Hemoptysis, Stridor, Wheezes Cardiovascular: Reports: As per HPI. Denies: Arrhythmia, Chest pain, Dyspnea on exertion, Edema, Murmurs, Orthopnea, Palpitations, Paroxysmal nocturnal dyspnea, Rheumatic Fever, Syncope Endocrine: Reports: As per HPI. Denies: Fatigue, Heat or cold intolerance, Polydipsia, Polyuria Gastrointestinal: Reports: As per HPI. Denies: Abdominal pain, Constipation, Diarrhea, Hematemesis, Hematochezia, Melena, Nausea, Vomiting Genitourinary: Reports: As per HPI. Denies: Dysuria, Frequency, Hematuria, Incontinence, Retention, Testicular pain, Testicular mass, Urgency Musculoskeletal: Reports: As per HPI. Denies: Arthralgia, Back pain, Gout, Joint swelling, Myalgia, Neck pain Skin: Reports: As per HPI. Denies: Bruising, Change in color, Change in hair/ nails, Lesions, Pruritus, Rash Neurological: Reports: As per HPI. Denies: Abnormal gait, Confusion, Headache, Numbness, Paresthesias, Seizure, Tingling, Tremors, Vertigo, Weakness Psychiatric: Reports: As per HPI. Denies: Anxiety, Auditory hallucinations, Depression, Homicidal thoughts, Suicidal thoughts, Visual hallucinations Hematological/Lymphatic: Reports: As per HPI. Denies: Anemia, Blood Clots, Easy bleeding, Easy bruising, Swollen glands Past Medical History - SOCIAL HISTORY Smoking Status: Current every day smoker Alcohol Use: Occasional Drug Use: None - RESPIRATORY Hx Respiratory Disorders: Yes Hx COPD: Yes - CARDIOVASCULAR Hx Cardio Disorders: Yes Hx Cardiac Cath: Yes Hx Heart Attack: Yes (triple bypass) Hx Pacemaker/Defib: Yes - NEURO Hx Neuro Disorders: No Hx Paralysis: Yes (polio affecting RLE) - GI Hx GI Disorders: No - Hx Genitourinary Disorders: No - ENDOCRINE Hx Endocrine Disorders: No - MUSCULOSKELETAL Hx Musculoskeletal Disorders: No - PSYCH Hx Psych Problems: No - HEMATOLOGY/ONCOLOGY Hx Hematology/Oncology Disorders: No Family Medical History Any Significant Family History?: No Hx Heart Disease: Father, Grandparents Physical Exam - General General Appearance: Alert, Oriented x3, Cooperative, No acute distress - Head Head exam: Normal inspection - Eye Eye exam: Normal appearance, PERRL, EOMI Pupils: Normal accommodation - ENT ENT exam: Normal exam, Mucous membranes moist, Normal external ear exam, Normal orophraynx Ear exam: Normal external inspection. negative: External canal tenderness Nasal Exam: Normal inspection. negative: Discharge, Sinus tenderness Mouth exam: Normal external inspection, Tongue normal Teeth exam: Normal inspection. negative: Dental caries Throat exam: Normal inspection. negative: Tonsillar erythema, Tonsillar exudate - Neck Neck exam: Normal inspection, Full ROM. negative: Tenderness - Respiratory Respiratory exam: Normal lung sounds bilaterally. negative: Respiratory distress - Cardiovascular Cardiovascular Exam: Regular rate, Normal rhythm, Normal heart sounds - GI/Abdominal GI/Abdominal exam: Soft, Normal bowel sounds. negative: Tenderness - Rectal Rectal exam: Tenderness, Other (perianal abscess bigger then yesterday, tender) - exam: Deferred - Extremities Extremities exam: Normal inspection, Full ROM, Normal capillary refill. negative: Tenderness - Back Back exam: Reports: Normal inspection, Full ROM. Denies: Muscle spasm, Rash noted, Tenderness - Neurological Neurological exam: Alert, Normal gait, Oriented X3, Reflexes normal - Psychiatric Psychiatric exam: Normal affect, Normal mood - Skin Skin exam: Dry, Intact, Normal color, Warm Course Vital Signs 11/03/17 09:45 Temperature 98.2 F Pulse Rate 89 Respiratory 24 Rate Blood Pressure 110/73 Pulse Ox 91 L Disposition Disposition: Admit Clinical Impression: Perianal abscess, Perianal cellulitis Disposition: Still a Patient at [facility] Decision to Admit: Admit from ER Decision to Admit Date: 11/03/17 Decision to Admit Time: 10:34 Forms: Patient Portal Access Quality - Quality Measures Quality Measures: N/A - Blood Pressure Screening Does Patient Have Any of the Following: No Blood Pressure Classification: Normal BP Reading Systolic Measurement: 110 Diastolic Measurement: 73 Screening for High Blood Pressure: < Normal BP, F/U Not Required > [G8783]
[2017-11-03] MEDS ORDERED: PROMETHAZINE HCL 6.25 MG in 0.9 % SODIUM CHLORIDE 100ML 100 ML IVPB ONE (10:30)
[2017-11-03] MEDS ORDERED: HYDROMORPHONE HCL 1 MG/ML SYRINGE IVP ONE (10:30)
[2017-11-03] MEDS ORDERED: MIDAZOLAM HCL 2MG/2ML VIAL IV ONE (18:14)
[2017-11-03] MEDS ORDERED: FENTANYL PF 100MCG/2ML VIAL IV ONE (18:14)
[2017-11-03] MEDS ORDERED: 0.9 % SODIUM CHLORIDE 10 ML VIAL IVP ONE (18:14)
[2017-11-03] MEDS ORDERED: PROPOFOL 10 MG/ML VIAL IV ONE (18:14)
[2017-11-03] MEDS ORDERED: BUPIVACAINE LIPOSOME 266MG/20ML VIAL IV ONE (18:14)
[2017-11-03] MEDS ORDERED: *PACU ONLY* KETAMINE HCL 10 MG/ML (20ML) VIAL IV ONE (18:14)
--- NOTE | 2017-11-04 12:50 | Operative Note ---
DATE OF SURGERY: 11/03/2017 PREOPERATIVE DIAGNOSIS: Left perianal abscess. POSTOPERATIVE DIAGNOSIS: Left perianal abscess. OPERATION: Incision and drainage of left perianal abscess. Surgeon: Sher Asencio DO Anesthesia: IV MAC local . Indication: The patient is a pleasant 67-year-old male who presents with perianal pain worsening over the past [address] showed a left perianal abscess. Risks, benefits, and alternatives were described before proceeding to the operating room for incision and drainage of this. PROCEDURE: After informed consent was obtained, the patient was brought to the operating suite. The patient in supine position on the operating room table. Anesthesia was administered per the anesthesia department. He was then transferred to the high lithotomy position and his perianal region was prepped and draped in the usual sterile fashion. There was a fluctuant area on the left perianal region consistent with the CT findings of a left perianal abscess. This area was anesthetized with both 1% lidocaine as well as Exparel. A small incision was made. A copious amount of purulent drainage was expressed. It was copiously irrigated with sterile saline solution. It was packed with iodoform gauze after aerobic and anaerobic cultures were obtained. Sterile dressing was applied. The patient tolerated the procedure very well. Transferred to recovery in stable condition. CC: James NEVAREZ
== END 2017-11-03 18:21 | disposition home or self-care (01) ==
LOC: ER 09:31 → UNDOADMOB 11:33 → MEDSURG 11:33 → SUR 11:45 → MEDSURG 15:45 → UNDODISOB 18:15 → SUR 18:21
PROVIDERS: ATTEND Surgery
DX: K61.2 Anorectal abscess (principal); Z95.810 Presence of automatic (implantable) cardiac defibrillator; I25.810 Atherosclerosis of coronary artery bypass graft(s) without angina pectoris; Z72.0 Tobacco use
CPT/HCPCS: 46040; 00902; 99284 ×2; 96365; 96375; 96368; 87070; J3010; C9290; J1170; J2550

== ENCOUNTER 2018-01-18 01:56 | Emergency (ER) | payer MEDICARE ==
--- NOTE | 2018-01-18 02:11 | Emergency Department Record ---
History of Present Illness - General Chief Complaint: Arrythmia/Palpitations Stated Complaint: "MY DEFIBULATOR WENT OFF" Time Seen by Provider: 01/18/18 02:01 Source: Patient Mode of Arrival: Ambulatory Limitations: No limitations - History of Present Illness Initial Comments: 67 yo male presents to ED for evaluation of his defibrillator fired this morning while asleep. Patient reports that his his AICD fired 2 weeks ago but he was not evaluated following these symptoms. Patient denies chest pain, difficulty breathing, fevers, chills, or recent illness. Patient reports that he sees Dr. Blake and Usman for his previous cardiac issues, reports history of CAD , CHF, COPD, and CABG. Onset/Timin -: Minutes(s) Context: AICD discharge Arrythmia History: AICD Associated Symptoms: Denies other symptoms - Related Data Allergies Allergy/AdvReac Type Severity Reaction Status Date / Time No Known Drug Allergies Allergy Verified 01/18/18 02:07 Review of Systems Constitutional: Denies: Chills, Fever, Malaise, Night sweats Eyes: Denies: Eye discharge, Eye pain ENT: Denies: Congestion, Ear pain, Epistaxis Respiratory: Denies: Cough, Dyspnea Cardiovascular: Denies: Chest pain, Dyspnea on exertion Endocrine: Denies: Fatigue, Heat or cold intolerance Gastrointestinal: Denies: Abdominal pain, Nausea, Vomiting Genitourinary: Denies: Incontinence, Retention Musculoskeletal: Denies: Arthralgia, Back pain, Gout, Joint swelling Skin: Denies: Bruising, Change in color Neurological: Denies: Abnormal gait, Confusion, Headache, Seizure Psychiatric: Denies: Anxiety Hematological/Lymphatic: Denies: Anemia, Blood Clots Past Medical History - SOCIAL HISTORY Smoking Status: Current every day smoker Alcohol Use Comment: drinks 3 beers every day - RESPIRATORY Hx Respiratory Disorders: Yes Hx COPD: Yes - CARDIOVASCULAR Hx Cardio Disorders: Yes Hx Cardiac Cath: Yes Hx Heart Attack: Yes (triple bypass 2002) Hx Pacemaker/Defib: Yes Hx Coronary Stent: Yes (x5) - NEURO Hx Neuro Disorders: Yes Hx Paralysis: Yes (polio affecting RLE) Comment:: recent visit to ed for poss stroke apparently had minor clot in sm vessel i - GI Hx GI Disorders: No - Hx Genitourinary Disorders: No Comment:: ABCESS PERIANAL - ENDOCRINE Hx Endocrine Disorders: No - MUSCULOSKELETAL Hx Musculoskeletal Disorders: No - PSYCH Hx Psych Problems: No - HEMATOLOGY/ONCOLOGY Hx Hematology/Oncology Disorders: No Comment:: pt on plavix Family Medical History Hx Heart Disease: Father, Grandparents Physical Exam - General General Appearance: Alert, Oriented x3, Cooperative, Mild distress Limitations: No limitations - Head Head exam: Atraumatic, Normocephalic, Normal inspection Head exam detail: negative: Abrasion, Contusion, Vargas's sign, General tenderness, Hematoma, Laceration - Eye Eye exam: Normal appearance. negative: Conjunctival injection, Periorbital swelling, Periorbital tenderness, Scleral icterus - ENT Ear exam: negative: Auricular hematoma, Auricular trauma Nasal Exam: negative: Active bleeding, Discharge, Dried blood, Foreign body Mouth exam: negative: Drooling, Laceration, Muffled voice, Tongue elevation - Neck Neck exam: Normal inspection. negative: Meningismus, Tenderness - Respiratory Respiratory exam: Normal lung sounds bilaterally. negative: Rales, Respiratory distress, Rhonchi, Stridor - Cardiovascular Cardiovascular Exam: Normal rhythm, Normal heart sounds, Tachycardia - GI/Abdominal GI/Abdominal exam: Soft. negative: Rebound, Rigid, Tenderness - Rectal Rectal exam: Deferred - exam: Deferred - Extremities Extremities exam: Normal inspection. negative: Pedal edema, Tenderness - Back Back exam: Denies: CVA tenderness (R), CVA tenderness (L) - Neurological Neurological exam: Alert, Normal gait, Oriented X3 - Psychiatric Psychiatric exam: Normal affect, Normal mood - Skin Skin exam: Normal color. negative: Abrasion Type of lesion: negative: abrasion Course - Reevaluation(s) Reevaluation #1: 01/18/18 02:11 EKG: Sinus tachycardia 116 LBBB, Normal axis Unchanged from previous 09/03/17 Reevaluation #2: 01/18/18 02:37 Labs reviewed and are grossly unremarkable for an acute process. [facility] 1-call contacted for transfer. Reevaluation #3: 01/18/18 02:49 Case was discussed with Dr. David, will accept transfer for further cardiac evaluation. Patient and hsi SO were updated on all results and agree with the plan for transfer at this time. Medical Decision Making - Lab Data Result diagrams: 01/18/18 02:11 01/18/18 02:11 Disposition Disposition: Transfer Clinical Impression: AICD discharge Coronary artery disease Qualifiers: Coronary Disease-Associated Artery/Lesion type: unspecified vessel or lesion type [place] vs. transplanted heart: [place] heart Associated angina: without angina Qualified Code(s): I25.10 - Atherosclerotic heart disease of [place] coronary artery without angina pectoris Transfer To: [facility] Reason For Transfer: Carediology consultation Accepting Physician: Frankie Time Discussed w/Accepting Physician: 02:42 Condition: (2) Stable Forms: Patient Portal Access Time of Disposition: 02:42 Quality - Quality Measures Quality Measures: N/A - Blood Pressure Screening Does Patient Have Any of the Following: Active Dx of HTN Blood Pressure Classification: Hypertensive Reading Systolic Measurement: 137 Diastolic Measurement: 100 Screening for High Blood Pressure: Patient Exclusion, Hx of HTN [G9744]
[2018-01-18 02:18] LABS: BASO % 0.6 % (0-6); EOS % 3.2 % (0-6); GRAN % 57.8 % (47-80); HEMATOCRIT 46.3 % (42.0-52.0); HEMOGLOBIN 15.5 gm/dl (14.0-18.0); LYMPH % 25.4 % (16-45); MEAN CELL VOLUME 94.7 fl (81-97); MEAN CORPUSCULAR HEMOGLOBIN 31.7 pg (27-33); MEAN CORPUSCULAR HGB CONC 33.5 g/dl (32-36); MEAN PLATELET VOLUME 11.4 fl (7.4-10.4); PLATELET COUNT 204 K/uL (130-400); RED BLOOD COUNT 4.89 M/uL (4.40-5.70); RED CELL DISTRIBUTION WIDTH 15.1 % (11.5-14.5); WHITE BLOOD COUNT W/O DIFF 6.6 K/uL (4.2-12.2)
[2018-01-18 02:26] LABS: BLOOD UREA NITROGEN 17 mg/dL (8-23); EST GLOMERULAR FILTRATION RATE > 60 mL/min
[2018-01-18 02:27] LABS: TOTAL PROTEIN 7.5 g/dL (6.6-8.7)
[2018-01-18 02:29] LABS: GLUCOSE,RANDOM 173 mg/dL (74-109)
[2018-01-18 02:32] LABS: ALB/GLOB RATIO 1.1 (1.1-1.8); ALBUMIN 3.9 g/dL (4.0-5.0); ALKALINE PHOSPHATASE 95 U/L (40-129); ALT/SGPT 13 U/L (<41); AST/SGOT 16 U/L (10.0-50.0)
--- NOTE | 2018-01-18 18:49 | RADIOLOGY REPORT ---
EXAM: CHEST 2 VIEWS HISTORY: PATIENT STATES DEFIBRILLATOR WENT OFF. TECHNIQUE: Frontal and lateral views of the chest were performed. COMPARISON: 09/03/2017. FINDINGS: Left-sided pacing device. Post-op sternotomy wires. Heart size is normal. There is subtle infiltrate in the right lower lobe. No pleural effusion. IMPRESSION: 1. SUBTLE INFILTRATE RIGHT LOWER LOBE. 2. LEFT-SIDED PACING DEVICE IN PLACE. JOB NUMBER: [id number] [facility]
== END 2018-01-18 03:15 | disposition short-term general hospital (02) ==
LOC: ER 01:56
DX: T82.897A Other specified complication of cardiac prosthetic devices, implants and grafts, initial encounter (principal); I50.9 Heart failure, unspecified; J44.9 Chronic obstructive pulmonary disease, unspecified; I25.10 Atherosclerotic heart disease of native coronary artery without angina pectoris; I25.2 Old myocardial infarction; Y71.0 Diagnostic and monitoring cardiovascular devices associated with adverse incidents; F17.210 Nicotine dependence, cigarettes, uncomplicated; Y92.003 Bedroom of unspecified non-institutional (private) residence as the place of occurrence of the external cause
CPT/HCPCS: 71046; 80053; 83880; 84484; 85025; 93005; 93010; 99285

== ENCOUNTER 2018-06-08 06:41 | Emergency (ER) | payer MEDICARE ==
[2018-06-08] MEDS ORDERED: PREDNISONE 20 MG TAB PO ONE (06:47)
--- NOTE | 2018-06-08 06:49 | Emergency Department Record ---
History of Present Illness - General Chief complaint: Rash Stated complaint: POISON BURT Time Seen by Provider: 06/08/18 06:44 Source: Patient Mode of Arrival: Ambulatory Limitations: No limitations - History of Present Illness Initial comments: 68 yo male presents to ED for evaluation of a rash to the upper extremities bilaterally, abdomen, and face. Patient reports that his symptoms began 5-6 days ago, reports itching and burning. Patient denies fevers, chills, or recent illness. Patient came to the ED as his eyes became swollen. Patient reports a history of COPD/CAD. MD complaint: Rash Onset/Timin -: Days(s) Hx Tetanus Toxoid Vaccination: Yes Year of Tetanus Vaccination: unsure Location: Face, Chest, LUE, RUE Severity: Moderate Consistency: Constant Improves with: None Worsens with: None Associated symptoms: Denies other symptoms Treatments Prior to Arrival: OTC topical medication - Related Data Previous Rx's Medication Instructions Recorded Prednisone [Prednisone 20Mg] 20 mg PO BID #15 tab 06/08/18 Allergies Allergy/AdvReac Type Severity Reaction Status Date / Time No Known Drug Allergies Allergy Verified 01/18/18 02:07 Review of Systems Constitutional: Denies: Chills, Fever, Malaise, Night sweats Eyes: Denies: Eye discharge, Eye pain ENT: Denies: Congestion, Ear pain, Epistaxis Respiratory: Denies: Cough, Dyspnea Cardiovascular: Denies: Chest pain, Dyspnea on exertion Endocrine: Denies: Fatigue, Heat or cold intolerance Gastrointestinal: Denies: Abdominal pain, Nausea, Vomiting Genitourinary: Denies: Incontinence, Retention Musculoskeletal: Denies: Arthralgia, Back pain, Gout, Joint swelling Skin: Reports: Rash. Denies: Bruising, Change in color Neurological: Denies: Abnormal gait, Confusion, Headache, Seizure Psychiatric: Denies: Anxiety Hematological/Lymphatic: Denies: Anemia, Blood Clots Past Medical History - SOCIAL HISTORY Smoking Status: Current every day smoker Alcohol Use Comment: drinks 3 beers every day - RESPIRATORY Hx Respiratory Disorders: Yes Hx COPD: Yes - CARDIOVASCULAR Hx Cardio Disorders: Yes Hx Cardiac Cath: Yes Hx Heart Attack: Yes (triple bypass 2002) Hx Pacemaker/Defib: Yes Hx Coronary Stent: Yes (x5) - NEURO Hx Neuro Disorders: Yes Hx Paralysis: Yes (polio affecting RLE) Comment:: recent visit to ed for poss stroke apparently had minor clot in sm vessel i - GI Hx GI Disorders: No - Hx Genitourinary Disorders: No Comment:: ABCESS PERIANAL - ENDOCRINE Hx Endocrine Disorders: No - MUSCULOSKELETAL Hx Musculoskeletal Disorders: No - PSYCH Hx Psych Problems: No - HEMATOLOGY/ONCOLOGY Hx Hematology/Oncology Disorders: No Comment:: pt on plavix Family Medical History Hx Heart Disease: Father, Grandparents Physical Exam - General General Appearance: Alert, Oriented x3, Cooperative, Mild distress Limitations: No limitations - Head Head exam: Atraumatic, Normocephalic, Normal inspection Head exam detail: negative: Abrasion, Contusion, Vargas's sign, General tenderness, Hematoma, Laceration - Eye Eye exam: Other (Mild edema to the lower lids bilaterally). negative: Conjunctival injection, Periorbital tenderness, Scleral icterus - ENT Ear exam: negative: Auricular hematoma, Auricular trauma Nasal Exam: negative: Active bleeding, Discharge, Dried blood, Foreign body Mouth exam: negative: Drooling, Laceration, Muffled voice, Tongue elevation - Neck Neck exam: Normal inspection. negative: Meningismus, Tenderness - Respiratory Respiratory exam: Normal lung sounds bilaterally. negative: Rales, Respiratory distress, Rhonchi, Stridor - Cardiovascular Cardiovascular Exam: Regular rate, Normal rhythm, Normal heart sounds - GI/Abdominal GI/Abdominal exam: Soft. negative: Rebound, Rigid, Tenderness - Rectal Rectal exam: Deferred - exam: Deferred - Extremities Extremities exam: Other (Erythematous, vesicular rash to the upper extremities bilaterally as well as lower anterior abdominal wall. Clubbing to the hands bilaterally.). negative: Calf tenderness, Pedal edema, Tenderness - Back Back exam: Denies: CVA tenderness (R), CVA tenderness (L) - Neurological Neurological exam: Alert, Normal gait, Oriented X3 - Psychiatric Psychiatric exam: Normal affect, Normal mood - Skin Skin exam: Erythema, Rash. negative: Abrasion Type of lesion: Rash Course - Reevaluation(s) Reevaluation #1: 06/08/18 06:54 Patient was seen and examined History and Physical examination appear c/w contact dermatitis Will initiate treatment with prednisone as directed. Patient appears stable for discharge at this time. Disposition Disposition: Discharge Clinical Impression: Contact dermatitis Qualifiers: Contact dermatitis type: unspecified Contact dermatitis trigger: unspecified trigger Qualified Code(s): L25.9 - Unspecified contact dermatitis, unspecified cause Disposition: Home, Self-Care Condition: (2) Stable Instructions: Contact Dermatitis (ED) Additional Instructions: Return to ED if your symptoms worsen or if you have any concerns. Prednisone as directed. Follow-up with your family doctor in 3-5 days as directed. Prescriptions: Prednisone [Prednisone 20Mg] 20 mg PO BID #15 tab Forms: Patient Portal Access Time of Disposition: 06:48 Quality - Quality Measures Quality Measures: N/A - Blood Pressure Screening Does Patient Have Any of the Following: Active Dx of HTN Blood Pressure Classification: Hypertensive Reading Systolic Measurement: 132 Diastolic Measurement: 90 Screening for High Blood Pressure: Patient Exclusion, Hx of HTN [G9744]
== END 2018-06-08 06:58 | disposition home or self-care (01) ==
LOC: ER 06:41
DX: L25.9 Unspecified contact dermatitis, unspecified cause (principal); F17.210 Nicotine dependence, cigarettes, uncomplicated; I10 Essential (primary) hypertension
CPT/HCPCS: 99282; J7512

== ENCOUNTER 2018-06-20 10:05 | Inpatient (IN) | payer MEDICARE ==
[2018-06-20] MEDS ORDERED: IPRATROPIUM/ALBUTEROL (0.5MG/3MG) NEB INH ONE (10:16)
--- NOTE | 2018-06-20 10:23 | Emergency Department Record ---
History of Present Illness - General Chief Complaint: Abdominal Pain Stated Complaint: UNABLE TO VOID STOMACH ISSUE/LITE HEADED Time Seen by Provider: 06/20/18 10:07 Source: Patient, Family Mode of Arrival: Ambulatory Limitations: No limitations - History of Present Illness Initial Comments: 68 yo male presents progressively feeling worse over a few weeks. He states he is short of breath, shaky, weak, lightheaded, abdominal fullness, constipated. No fevers or chills. He has CAD, CVA, HTN, COPD and continues to smoke. He states his breathing has gradually worsened. He has a non productive cough. His energy level is poor. No chest pain. No syncope. No edema. No urinary difficulties. His stools have been firm and dark. No obvious blood. PCP is Alvarez. Cards is Cohn. GARCIA Complaint: Shortness of breath -: Week(s) Severity: Moderate Quality: Other Consistency: Constant Improves With: Rest Worsens With: Exertion Known History Of: COPD Context: Other (continues to smoke) Associated Symptoms: Abdominal pain, Cough, Lower abdominal swelling Treatments Prior to Arrival: Other - Related Data Home Oxygen Amount: other (PRN oxygen) Allergies Allergy/AdvReac Type Severity Reaction Status Date / Time No Known Drug Allergies Allergy Verified 06/20/18 10:15 Review of Systems Constitutional: Reports: Malaise, Weakness. Denies: Chills, Fever Eyes: Denies: Eye discharge, Eye pain, Vision change ENT: Denies: Congestion, Ear pain, Throat pain Respiratory: Reports: Cough, Dyspnea, Wheezes. Denies: Hemoptysis Cardiovascular: Reports: Dyspnea on exertion. Denies: Chest pain, Edema, Palpitations, Syncope Endocrine: Reports: Fatigue Gastrointestinal: Reports: As per HPI, Abdominal pain, Nausea, Other (Dark stools) Genitourinary: Denies: Dysuria, Frequency, Hematuria, Incontinence, Retention Musculoskeletal: Denies: Arthralgia, Back pain, Joint swelling, Myalgia Skin: Denies: Bruising, Change in color, Rash Neurological: Denies: Headache Psychiatric: Denies: Anxiety Hematological/Lymphatic: Denies: Blood Clots, Easy bleeding, Easy bruising Past Medical History - SOCIAL HISTORY Smoking Status: Current every day smoker Alcohol Use Comment: drinks 3 beers every day - RESPIRATORY Hx Respiratory Disorders: Yes Hx COPD: Yes - CARDIOVASCULAR Hx Cardio Disorders: Yes Hx Cardiac Cath: Yes Hx Heart Attack: Yes (triple bypass 2002) Hx Pacemaker/Defib: Yes Hx Coronary Stent: Yes (x5) - NEURO Hx Neuro Disorders: Yes Hx Paralysis: Yes (polio affecting RLE) Comment:: recent visit to ed for poss stroke apparently had minor clot in sm vessel i - GI Hx GI Disorders: No - Hx Genitourinary Disorders: No Comment:: ABCESS PERIANAL - ENDOCRINE Hx Endocrine Disorders: No - MUSCULOSKELETAL Hx Musculoskeletal Disorders: No - PSYCH Hx Psych Problems: No - HEMATOLOGY/ONCOLOGY Hx Hematology/Oncology Disorders: No Comment:: pt on plavix Family Medical History Hx Heart Disease: Father, Grandparents Physical Exam - General General Appearance: Alert, Oriented x3, Cooperative, No acute distress, Other ( Mild conversational dyspnea) Limitations: No limitations - Head Head exam: Atraumatic, Normal inspection - Eye Eye exam: Normal appearance, PERRL. negative: Conjunctival injection, Scleral icterus - ENT ENT exam: Normal exam, Mucous membranes moist, Normal orophraynx. negative: Mucous membranes dry Ear exam: Normal external inspection Nasal Exam: Normal inspection Mouth exam: Normal external inspection Teeth exam: Normal inspection Throat exam: Normal inspection - Neck Neck exam: Normal inspection, Full ROM. negative: Tenderness - Respiratory Respiratory exam: Decreased breath sounds, Prolonged expiratory, Wheezes. negative: Normal lung sounds bilaterally, Respiratory distress - Cardiovascular Cardiovascular Exam: Regular rate, Normal rhythm, Normal heart sounds - GI/Abdominal GI/Abdominal exam: Soft, Tenderness (soft but diffusely tender, no mass or obvious hernia). negative: Distended, Guarding, Rebound, Rigid - Rectal Rectal exam: Black stool, Heme (+) stool - Extremities Extremities exam: Normal capillary refill, Pedal edema (trace bilateral). negative: Calf tenderness, Full ROM, Tenderness - Back Back exam: Reports: Normal inspection, Full ROM. Denies: Muscle spasm, Rash noted, Tenderness - Neurological Neurological exam: Alert, CN II-XII intact, Normal gait, Oriented X3. negative : Abnormal gait, Altered, Motor sensory deficit - Psychiatric Psychiatric exam: Normal affect, Normal mood. negative: Agitated, Anxious - Skin Skin exam: Dry, Intact, Normal color, Warm Course - Reevaluation(s) Reevaluation #1: 06/20/18 10:36 The CBC was reviewed. The Hgb is 12. The prior was 15 in December. 06/20/18 10:37 EKG #1 1031 Rate is 77 Rhythm is Sinus [place] is normal Intervals Qtc 475, QRS 123, LBBB. ST Segments Poor R wave progression, Lateral T Wave changes, Similar EKG 09/03/17 without changes. 06/20/18 10:50 The Troponin is negative The BNP is elevated at 4689 The Sodium is 131 The CMP is otherwise normal 06/20/18 11:03 Rectal examination demonstrated dark stool that was heme positive on the developer card 06/20/18 11:42 The AAS was reviewed. There is increased pulmonary vascular markings consistent with edema vs infection. Given his increased BNP this is likely edema. Abdomen is non obstructive with a few air fluid levels consistent with ileus. Given his dyspnea, CHF, 3gm drop in Hgb with black heme positive stools, and acute CHF I recommend admission for further work up. 06/20/18 12:02 The case was discussed with Mary Jane Anthony of the admission service for Family Medicine. The patient will be given lasix, serial troponins, repeat Hgb, consult for ECHO and GI. Medical Decision Making - Lab Data Result diagrams: 06/20/18 10:20 06/20/18 10:20 Disposition Disposition: Admit Clinical Impression: Dyspnea, Acute exacerbation of CHF (congestive heart failure), Tobacco abuse, Abdominal distention, Heme + stool, Anemia, Weakness Disposition: Still a Patient at [facility] Decision to Admit: Admit from ER Decision to Admit Date: 06/20/18 Decision to Admit Time: 12:02 Condition: (2) Stable Forms: Patient Portal Access Time of Disposition: 12:02 Quality - Quality Measures Quality Measures: N/A - Blood Pressure Screening Does Patient Have Any of the Following: Active Dx of HTN Blood Pressure Classification: Hypertensive Reading Systolic Measurement: 139 Diastolic Measurement: 94 Screening for High Blood Pressure: Patient Exclusion, Hx of HTN [[id number]]
[2018-06-20 10:27] LABS: BASO % 0.3 % (0-6); GRAN % 75.2 % (47-80); HEMATOCRIT 37.7 % (42.0-52.0); LYMPH % 11.1 % (16-45); MEAN CELL VOLUME 94.7 fl (81-97); MEAN CORPUSCULAR HGB CONC 31.8 g/dl (32-36); MONO % 9.4 % (0-9); PLATELET COUNT 153 K/uL (130-400); RED BLOOD COUNT 3.98 M/uL (4.40-5.70); RED CELL DISTRIBUTION WIDTH 14.7 % (11.5-14.5)
[2018-06-20 10:28] LABS: MEAN CORPUSCULAR HEMOGLOBIN 30.1 pg (27-33)
[2018-06-20 10:36] LABS: BLOOD UREA NITROGEN 12 mg/dL (8-23); CREATININE 0.7 mg/dL (0.7-1.2); EST GLOMERULAR FILTRATION RATE > 60 mL/min
[2018-06-20 10:37] LABS: TOTAL PROTEIN 7.2 g/dL (6.6-8.7)
[2018-06-20 10:39] LABS: GLUCOSE,RANDOM 129 mg/dL (74-109)
[2018-06-20 10:42] LABS: ALB/GLOB RATIO 1.3 (1.1-1.8); ALKALINE PHOSPHATASE 84 U/L (40-129); ALT/SGPT 25 U/L (<41); AST/SGOT 17 U/L (10.0-50.0)
[2018-06-20] MEDS ORDERED: FUROSEMIDE IV 40MG/4ML VIAL IVP ONE (11:44)
[2018-06-20] MEDS ORDERED: ACETAMINOPHEN 500 MG TABLET PO PRN (12:46)
[2018-06-20] MEDS: NICOTINE14 MG/24 HOUR PATCH TD SCH (13:28)
[2018-06-20] MEDS: POLYETHYLENE GLY 17 GM PACKET PO SCH (13:30)
[2018-06-20] MEDS ORDERED: FUROSEMIDE IV 40MG/4ML VIAL IVP SCH (16:00)
[2018-06-20] MEDS: PANTOPRAZOLE SODIUM IV 40 MG VIAL IVP SCH (16:08)
[2018-06-20] MEDS: IPRATROPIUM/ALBUTEROL (0.5MG/3MG) NEB INH SCH ×2 (16:32→23:42)
[2018-06-20] MEDS ORDERED: VALSARTAN PO SCH (22:00)
[2018-06-20] MEDS ORDERED: SACUBITRIL PO SCH (22:00)
[2018-06-21 02:32] LABS: BASO % 0.4 % (0-6); EOS % 5.5 % (0-6); GRAN % 61.1 % (47-80); HEMATOCRIT 36.4 % (42.0-52.0); HEMOGLOBIN 11.6 gm/dl (14.0-18.0); LYMPH % 19.4 % (16-45); MEAN CELL VOLUME 95.3 fl (81-97); MEAN CORPUSCULAR HGB CONC 31.9 g/dl (32-36); MEAN PLATELET VOLUME 11.3 fl (7.4-10.4); MONO % 13.6 % (0-9); PLATELET COUNT 166 K/uL (130-400); RED BLOOD COUNT 3.82 M/uL (4.40-5.70); RED CELL DISTRIBUTION WIDTH 14.9 % (11.5-14.5); WHITE BLOOD COUNT W/O DIFF 6.9 K/uL (4.2-12.2)
[2018-06-21 02:40] LABS: MEAN CORPUSCULAR HEMOGLOBIN 30.3 pg (27-33)
[2018-06-21] MEDS: IPRATROPIUM/ALBUTEROL (0.5MG/3MG) NEB INH SCH ×4 (05:34→22:44)
--- NOTE | 2018-06-21 07:23 | RADIOLOGY REPORT ---
EXAM: ACUTE ABDOMEN SERIES HISTORY: MID ABDOMINAL PAIN AND WEAKNESS. DYSPNEA FOR 2-3 WEEKS. TECHNIQUE: A single view of the chest and two views of the abdomen were obtained. Comparison: None. FINDINGS: Within the chest, there is a left chest pacemaker/defibrillator. Previous median sternotomy and CABG. Mild cardiomegaly. There is interstitial prominence within the mid and lower lungs bilaterally which may be slightly progressed when compared to the previous 01/18/18 chest radiography. This could relate to atypical infectious change. No focal consolidation or pleural effusion. Within the abdomen, there is no focally dilated air filled loop of bowel. There are a few scattered air fluid levels on upright images. No abnormal intraabdominal air collection. No suspicious calcifications. IMPRESSION: 1. INTERSTITIAL OPACITIES WITHIN THE VISUALIZED MID AND LOWER LUNGS BILATERALLY APPEAR SLIGHTLY INCREASED COMPARED TO THE PREVIOUS CHEST RADIOGRAPH. SUSPECT THIS RELATES TO INFECTIOUS CHANGES OR INTERSTITIAL EDEMA. 2. STABLE CARDIOMEGALY. 3. THERE ARE A FEW MILDLY PROMINENT AIR FLUID LEVELS ON UPRIGHT IMAGES WHICH COULD RELATE TO ILEUS. A NONOBSTRUCTIVE BOWEL GAS PATTERN IS NOTED. JOB NUMBER: [id number] [facility]
--- NOTE | 2018-06-21 10:22 | History & Physical ---
History of Present Illness - Date of Service Date of Service for History & Physical: 06/21/18 - History of Present Illness Admitting Diagnosis: CHF, Dyspnea, GI Bleed, History of Present Illness: 68 year old male presents to ED for progressive weakness, shortness of breath, abdominal pain/fullness, and constipation. Patient reports a minimally productive cough, denies fever, chills, or diaphoresis. Patient states he has shortness of breath at baseline, but reports it has been worsening over the past several months. Patient is a poor historian and unable to give specifics about his health history. Patient denies chest pain, syncope, edema, or urinary difficulties. Patient also reports noting dark black, firm stools for the past week. However, reports he has not had a bowel movement in the past 3 days, reports normally having daily bowel movements. Patient has a history of CAD, CVA, HTN, COPD, permanent pacemaker, CABG, CHF, cardiomegaly, elevated lipids, and current smoker. Patient denies a history of GI bleed, currently takes Plavix and ASA for CAD/CVA history. PCP: Alvarez [employer] Estimator: KYLEE ED Course: Labs: Hgb 12 (previous 15 in 01/17); troponin neg, BNP 4689; Sodium 131, CMP nml Positive hemocult in ED EKG: rate 77, LBBB unchanged from 09/03/17 Abdominal x-ray: Possible bilateral infiltrates which could be infectious or interstitial edema; stable cardiomegaly; nonobstructive abdomen with a few air fluid levels which are consistent with ileus. Lasix 40mg IVP ECHO GI consult 06/21/18: Patient A&O x 4. Patient resting comfortably in bed, at bedside. Patient on room air, denies any improvement in SOB since receiving additional Lasix dose. Lung sounds diminished but clear. Bowel sounds heard throughout. ECHO completed this morning, report pending. Patient remains NPO for GI consult and endoscopy. Regarding constipation, patient received miralax yesterday with no relief. After EGD, will give patient mag citrate for constipation. Disposition will be pending based on GI findings, ECHO, and abdominal pain/bowel movement. Travel Screening - Travel/Exposure Within Last 30 Days Have you traveled within the last 30 days?: No - Travel/Exposure Within Last Year Have you traveled outside the [place] in the last year?: No - Additonal Travel Details Have you been exposed to anyone with a communicable illness?: No - Travel Symptoms Symptom Screening: None Review of Systems Constitutional: Reports: Malaise, Weakness. Denies: Chills, Fever Eyes: Denies: Eye discharge, Eye pain, Vision change ENT: Denies: Congestion, Ear pain, Throat pain Respiratory: Reports: Cough, Dyspnea, Wheezes. Denies: Hemoptysis Cardiovascular: Reports: Dyspnea on exertion. Denies: Chest pain, Edema, Palpitations, Syncope Endocrine: Reports: Fatigue Gastrointestinal: Reports: As per HPI, Abdominal pain, Nausea, Other (Dark stools) Genitourinary: Denies: Dysuria, Frequency, Hematuria, Incontinence, Retention Musculoskeletal: Denies: Arthralgia, Back pain, Joint swelling, Myalgia Skin: Denies: Bruising, Change in color, Rash Neurological: Denies: Headache Psychiatric: Denies: Anxiety Hematological/Lymphatic: Denies: Blood Clots, Easy bleeding, Easy bruising Past Medical History - SOCIAL HISTORY Smoking Status: Current every day smoker Alcohol Use: Heavy Alcohol Use Comment: 3-4 beers /day Drug Use: None - RESPIRATORY Hx Respiratory Disorders: Yes Hx Bronchitis: No Hx COPD: Yes Hx Pneumonia: No - CARDIOVASCULAR Hx Cardio Disorders: Yes Hx Cardiac Cath: Yes Hx Heart Attack: Yes (triple bypass 2002) Hx Hypertension: Yes Hx Pacemaker/Defib: Yes Hx Coronary Stent: Yes (x5) - NEURO Hx Neuro Disorders: Yes Hx Dizziness: Yes Hx Paralysis: Yes (polio affecting RLE) Comment:: recent visit to ed for poss stroke apparently had minor clot in sm vessel i - GI Hx GI Disorders: Yes Hx Abdominal Pain: Yes Hx GI Bleed: Yes Comment:: constipation x 2-3 weeks - Hx Genitourinary Disorders: No Comment:: ABCESS PERIANAL - ENDOCRINE Hx Endocrine Disorders: No - MUSCULOSKELETAL Hx Musculoskeletal Disorders: No - PSYCH Hx Psych Problems: No - HEMATOLOGY/ONCOLOGY Hx Hematology/Oncology Disorders: No Comment:: pt on plavix Family Medical History Any Significant Family History?: Yes Hx Heart Disease: Father, Mother, Brother/Sister, Grandparents H&P Meds/Allergies - Allergies Allergies: Allergies Allergy/AdvReac Type Severity Reaction Status Date / Time No Known Drug Allergies Allergy Verified 06/20/18 10:15 - Active Medications Active Medications: Current Medications Acetaminophen (Tylenol 500mg Tab) 1,000 mg PO Q6H PRN PRN Reason: PAIN - MILD(1-4)/FEVER Albuterol/Ipratropium (Duoneb) 3 ml INH RESP.Q6H [facility] Last Admin: 06/21/18 05:34 Dose: 3 ml Atorvastatin Calcium (Lipitor) 20 mg PO DAILY [facility] Carvedilol (Coreg) 12.5 mg PO [id number] [facility] Lisinopril (Zestril) 10 mg PO DAILY [facility] Nicotine (Nicotine 14mg) 1 patch TD DAILY [facility] Last Admin: 06/20/18 13:28 Dose: 1 patch Non-Formulary Medication (Sacubitril/Valsartan [Entresto 97 Mg-103 Mg Tablet]) 1 tab PO BID [facility] Pantoprazole Sodium (Protonix Iv) 40 mg IVP Q24H [facility] Last Admin: 06/20/18 16:08 Dose: 40 mg Polyethylene Glycol (Miralax) 17 gm PO DAILY [facility] Last Admin: 06/20/18 13:30 Dose: 17 gm Physical Exam - Vital Signs Vital Signs: Vital Signs - Last 24 Hrs Temp Pulse Pulse Resp BP BP Pulse Ox 06/21/18 09:00 80 16 06/21/18 07:55 97.3 F L 93 H 18 117/59 99 06/21/18 05:35 88 14 94 L 06/21/18 04:00 97.5 F L 83 16 116/67 91 L 06/21/18 00:00 97.5 F L 80 16 103/70 93 L 06/20/18 23:44 74 14 95 06/20/18 21:00 71 17 06/20/18 20:00 96.8 F L 71 17 100/65 94 L 06/20/18 16:32 75 16 100 06/20/18 16:00 97 F L 76 18 105/64 98 06/20/18 15:52 16 06/20/18 12:46 79 16 127/76 100 06/20/18 12:27 78 20 131/84 98 06/20/18 11:33 70 18 131/89 100 06/20/18 10:22 83 20 100 06/20/18 10:17 97.5 F L 95 H 20 139/94 93 L - General General Appearance: Alert, Oriented x3, Cooperative, No acute distress, Other ( Mild conversational dyspnea) Limitations: No limitations - Head Head exam: Atraumatic, Normal inspection - Eye Eye exam: Normal appearance, PERRL. negative: Conjunctival injection, Scleral icterus - ENT ENT exam: Normal exam, Mucous membranes moist, Normal orophraynx. negative: Mucous membranes dry Ear exam: Normal external inspection Nasal Exam: Normal inspection Mouth exam: Normal external inspection Teeth exam: Normal inspection Throat exam: Normal inspection - Neck Neck exam: Normal inspection, Full ROM. negative: Tenderness - Respiratory Respiratory exam: Decreased breath sounds, Prolonged expiratory. negative: Normal lung sounds bilaterally, Respiratory distress - Cardiovascular Cardiovascular Exam: Regular rate, Normal rhythm, Normal heart sounds Peripheral Pulses: 2+: Radial (R), Radial (L), Dorsalis Pedis (R), Dorsalis Pedis (L) - GI/Abdominal GI/Abdominal exam: Soft, Normal bowel sounds, Tenderness (soft but diffusely tender, no mass or obvious hernia). negative: Distended, Guarding, Rebound, Rigid - Rectal Rectal exam: Heme (+) stool - exam: Deferred - Extremities Extremities exam: Normal capillary refill. negative: Calf tenderness, Full ROM , Pedal edema, Tenderness - Back Back exam: Reports: Normal inspection, Full ROM. Denies: Muscle spasm, Rash noted, Tenderness - Neurological Neurological exam: Alert, Normal gait, Oriented X3. negative: Abnormal gait, Altered, Motor sensory deficit - Psychiatric Psychiatric exam: Normal affect, Normal mood. negative: Agitated, Anxious - Skin Skin exam: Dry, Intact, Normal color, Warm Results - Labs Result Diagrams: 06/21/18 02:24 06/20/18 10:20 Labs Last 24 Hours: Laboratory Results - last 24 hr 06/20/18 06/20/18 06/20/18 10:20 10:20 18:20 WBC 8.0 RBC 3.98 L Hgb 12.0 L Hct 37.7 L MCV 94.7 MCH 30.1 MCHC 31.8 L RDW 14.7 H Plt Count 153 MPV 12.0 H Gran % 75.2 Lymphocytes % 11.1 L Monocytes % 9.4 H Eosinophils % 4.0 Basophils % 0.3 Sodium 131 L Potassium 4.5 Chloride 91 L Carbon Dioxide 27.0 Anion Gap 13.0 BUN 12 Creatinine 0.7 Estimated GFR > 60 Random Glucose 129 H Calcium 9.3 Total Bilirubin 1.10 H AST 17 ALT 25 Alkaline Phosphatase 84 Troponin T < 0.010 < 0.010 NT-Pro-B Natriuret Pep 4689.00 H Total Protein 7.2 Albumin 4.0 Globulin 3.2 Albumin/Globulin Ratio 1.3 06/21/18 06/21/18 02:24 02:24 WBC 6.9 RBC 3.82 L Hgb 11.6 L Hct 36.4 L MCV 95.3 MCH 30.3 MCHC 31.9 L RDW 14.9 H Plt Count 166 MPV 11.3 H Gran % 61.1 Lymphocytes % 19.4 Monocytes % 13.6 H Eosinophils % 5.5 Basophils % 0.4 Sodium Potassium Chloride Carbon Dioxide Anion Gap BUN Creatinine Estimated GFR Random Glucose Calcium Total Bilirubin AST ALT Alkaline Phosphatase Troponin T < 0.010 NT-Pro-B Natriuret Pep Total Protein Albumin Globulin Albumin/Globulin Ratio VTE H&P Assessment - Risk for VTE Risk for VTE: Yes Risk Level: Moderate Risk Assessment Date: 06/21/18 Risk Assessment Time: 10:23 VTE Orders Placed or Will Be Placed: No VTE Reason for No Prophylaxis: Contraindicated (possible GI bleed) Plan - Inpatient Certification Inpatient Certification: Admit to inpatient care: Based on my medical assessment, after consideration of patient's risk factors (age, co-morbidities and patient presenting symptoms and acuity), I expect that this patient will remain in the hospital greater than or equal to two midnights and that the services needed warrant inpatient care because: Patient Risk Factors: [age, comorbidites, shortness of breath, abdominal pain] Estimated length of stay: The patient may reasonably be expected to be discharged or transferred to a hospital within 48-72 hours after admission to [facility]. Services needed: [serial labs, GI consult, ECHO, teletypesetter monitor] Post hospital care (if known): [] I certify that my determination is in accordance with my understanding of Medicare requirements for reasonable and necessary inpatient services. 06/21/18 10:24 - Detailed Diagnosis and Plan (1) Acute exacerbation of CHF (congestive heart failure) Current Visit: Yes Status: Acute Qualifiers: Base Code: I50.9 - HEART FAILURE, UNSPECIFIED Comment: 06/21/18- progressively worsening SOB over the past several months. Patient has history of CHF, sees Dr. Crenshaw with [facility]. Patient currently lasix 40mg BID. CXR in ED indicated possible interstitial edema, BNP 4689. -Cardiac enzymes negative x 2, denies chest pain -EKG unchanged -ECHO completed today, report pending -Patient continues to smoke -Received additional Lasix 40mg IVP, no improvement in resp effort. BUN/CR WNL -Daily weights -I&O qshift -Fluid restriction 2000CC/day (2) Abdominal distention Current Visit: Yes Status: Acute Base Code: R14.0 - ABDOMINAL DISTENSION ( GASEOUS) Comment: 06/21/18: Reports of no bowel movement x 3 days, normally has daily BMs. -Abd x-ray in ED: possible ileus -Bowel sounds normal throughout. Distention and tenderness noted throughout -Patient received miralax yesterday, no bm -GI consult for positive hemocult, NPO at this time for pending EGD. Will start mag citrate after procedure if no contraindications at that time. (3) Heme + stool Current Visit: Yes Status: Acute Base Code: R19.5 - OTHER FECAL ABNORMALITIES Comment: 06/21/18: Patient reports dark black stools x 1 week [employer]. Patient currently on Plavix and ASA for CAD/CVA history. Rectal exam in ED + for hemocult. -Hgb 12 (15 on 01/17) -GI consult, planning to do EGD today -NPO (4) DVT prophylaxis Current Visit: No Status: Acute Base Code: [id number] - Comment: 06/21/18: high risk due to hospitalization, recent OR, decreased mobility. -Lovenox contraindicated at this time due to possible GI bleed and current plavix therapy. -Will add SCDs while in bed and encourage ambulation (5) Full code status Current Visit: No Status: Acute Base Code: Z78.9 - OTHER SPECIFIED HEALTH STATUS Comment: 06/21/18- patient is full code this admission
[2018-06-21] MEDS ORDERED: FUROSEMIDE IV 20MG/2ML VIAL IVP ONE (12:58)
[2018-06-21] MEDS: CARVEDILOL 12.5 MG TABLET PO SCH (13:35)
[2018-06-21] MEDS: NICOTINE14 MG/24 HOUR PATCH TD SCH (13:36)
[2018-06-21] MEDS: LISINOPRIL 10 MG TABLET PO SCH (13:36)
[2018-06-21] MEDS: ATORVASTATIN 20 MG TABLET PO SCH (13:36)
[2018-06-21] MEDS: PANTOPRAZOLE SODIUM IV 40 MG VIAL IVP SCH (13:37)
[2018-06-21] MEDS: BISACODYL 5 MG TABLET PO SCH (13:37)
[2018-06-21] MEDS ORDERED: PROPOFOL 10 MG/ML VIAL IV ONE (16:16)
[2018-06-21] MEDS ORDERED: LIDOCAINE 2% MDV (20MG/ML) 20ML VIAL IV ONE (16:16)
[2018-06-21] MEDS: POLYETHYLENE GLY 17 GM PACKET PO SCH (17:41)
[2018-06-21] MEDS: CIPROFLOXACIN LACTATE/D5W 400 MG/200 ML BAG IVPB SCH (17:41)
[2018-06-21] MEDS: FUROSEMIDE 40 MG TABLET PO SCH (17:42)
[2018-06-21] MEDS: METRONIDAZOLE IVPB 500 MG/100 ML BAG IVPB SCH (19:45)
[2018-06-22] MEDS: CIPROFLOXACIN LACTATE/D5W 400 MG/200 ML BAG IVPB SCH (03:55)
[2018-06-22] MEDS: METRONIDAZOLE IVPB 500 MG/100 ML BAG IVPB SCH ×2 (05:06→08:33)
[2018-06-22] MEDS: IPRATROPIUM/ALBUTEROL (0.5MG/3MG) NEB INH SCH ×2 (05:31→11:17)
[2018-06-22 06:55] LABS: BASO % 0.3 % (0-6); GRAN % 68.8 % (47-80); HEMATOCRIT 37.2 % (42.0-52.0); HEMOGLOBIN 11.9 gm/dl (14.0-18.0); LYMPH % 14.9 % (16-45); MEAN CELL VOLUME 95.9 fl (81-97); MEAN PLATELET VOLUME 11.4 fl (7.4-10.4); PLATELET COUNT 168 K/uL (130-400); RED BLOOD COUNT 3.88 M/uL (4.40-5.70); RED CELL DISTRIBUTION WIDTH 14.9 % (11.5-14.5)
[2018-06-22 07:02] LABS: MEAN CORPUSCULAR HEMOGLOBIN 30.6 pg (27-33)
[2018-06-22 07:19] LABS: ALB/GLOB RATIO 1.4 (1.1-1.8); ALBUMIN 3.8 g/dL (4.0-5.0); ALKALINE PHOSPHATASE 72 U/L (40-129); ALT/SGPT 17 U/L (<41); AST/SGOT 13 U/L (10.0-50.0); BLOOD UREA NITROGEN 19 mg/dL (8-23); CREATININE 1.1 mg/dL (0.7-1.2); EST GLOMERULAR FILTRATION RATE > 60 mL/min; GLUCOSE,RANDOM 139 mg/dL (74-109); TOTAL PROTEIN 6.5 g/dL (6.6-8.7)
--- NOTE | 2018-06-22 07:21 | CT SCAN REPORT ---
EXAM: CT OF THE ABDOMEN AND PELVIS WITH CONTRAST HISTORY: GI BLEED. TECHNIQUE: Sequential axial images were obtained from the diaphragms through the ischiorectal fossa after intravenous and oral administration of 100 ml of Omnipaque 300 contrast material. FINDINGS: There is cardiomegaly. The visualized lung bases appear normal. The liver appears normal. The gallbladder appears normal. The pancreas and spleen appear normal. The adrenal glands and kidneys appear normal. The small bowel appears normal. The colon appears grossly unremarkable. The urinary bladder appears normal. There is mild atherosclerotic plaque of the abdominal vasculature. The osseous structures are normal. IMPRESSION: COLONIC DIVERTICULOSIS WITHOUT EVIDENCE OF DIVERTICULITIS. NO CT EVIDENCE OF THE SOURCE OF THE PATIENT'S GI BLEED. JOB NUMBER: [id number] [facility]
[2018-06-22] MEDS: ATORVASTATIN 20 MG TABLET PO SCH (09:36)
[2018-06-22] MEDS: FUROSEMIDE 40 MG TABLET PO SCH (09:36)
[2018-06-22] MEDS: CARVEDILOL 12.5 MG TABLET PO SCH (09:37)
[2018-06-22] MEDS: POLYETHYLENE GLY 17 GM PACKET PO SCH ×2 (09:37→10:39)
[2018-06-22] MEDS: LISINOPRIL 10 MG TABLET PO SCH (09:37)
[2018-06-22] MEDS: BISACODYL 5 MG TABLET PO SCH (09:37)
[2018-06-22] MEDS: NICOTINE14 MG/24 HOUR PATCH TD SCH (09:38)
--- NOTE | 2018-06-22 09:45 | Discharge Summary ---
Providers Discharge Summary Date: 06/22/18 Date of admission: 06/20/18 12:23 Attending physician: OCTAVIO PLUNKETT Primary care physician: OCTAVIO PLUNKETT Consults: Consult Orders 06/20/18 12:46 Consult NOW Consulting Provider: ZACHARY MURO Physician Instructions: Reason For Exam: Black stool, bloating, Hgb 15 to 12 Physical Exam - Vital Signs Vital Signs: Vital Signs - Last 24 Hrs Temp Pulse Pulse Resp BP Pulse Ox 06/22/18 08:00 98 F 77 18 116/60 95 06/22/18 05:33 75 16 90 L 06/22/18 04:00 98.2 F 78 16 96/68 94 L 06/21/18 22:44 88 14 95 06/21/18 21:00 78 16 06/21/18 20:00 97.9 F 78 16 102/63 95 06/21/18 16:00 97.9 F 79 18 112/69 92 L 06/21/18 12:45 97.2 F L 76 16 123/79 92 L 06/21/18 10:32 77 16 95 - General General Appearance: Alert, Oriented x3, Cooperative, No acute distress, Other ( Mild conversational dyspnea) Limitations: No limitations - Head Head exam: Atraumatic, Normal inspection - Eye Eye exam: Normal appearance, PERRL. negative: Conjunctival injection, Scleral icterus - ENT ENT exam: Normal exam, Mucous membranes moist, Normal orophraynx. negative: Mucous membranes dry Ear exam: Normal external inspection Nasal Exam: Normal inspection Mouth exam: Normal external inspection Teeth exam: Normal inspection Throat exam: Normal inspection - Neck Neck exam: Normal inspection, Full ROM. negative: Tenderness - Respiratory Respiratory exam: Decreased breath sounds, Prolonged expiratory. negative: Normal lung sounds bilaterally, Respiratory distress - Cardiovascular Cardiovascular Exam: Regular rate, Normal rhythm, Normal heart sounds Peripheral Pulses: 2+: Radial (R), Radial (L), Dorsalis Pedis (R), Dorsalis Pedis (L) - GI/Abdominal GI/Abdominal exam: Soft, Normal bowel sounds, Tenderness (mild tenderness of the right lower quadrant ). negative: Distended, Guarding, Rebound, Rigid - Rectal Rectal exam: Heme (+) stool - exam: Deferred - Extremities Extremities exam: Normal capillary refill. negative: Calf tenderness, Full ROM , Pedal edema, Tenderness - Back Back exam: Reports: Normal inspection, Full ROM. Denies: Muscle spasm, Rash noted, Tenderness - Neurological Neurological exam: Alert, Normal gait, Oriented X3. negative: Abnormal gait, Altered, Motor sensory deficit - Psychiatric Psychiatric exam: Normal affect, Normal mood. negative: Agitated, Anxious - Skin Skin exam: Dry, Intact, Normal color, Warm Hospitalization - Hospitalization Admission Diagnosis: CHF, Dyspnea, GI Bleed, - Problem List/Discharge Diagnosis (1) Abdominal distention Current Visit: Yes Status: Acute Base Code: R14.0 - ABDOMINAL DISTENSION ( GASEOUS) Comment: 06/22/18: - Bowel movement this morning, well formed, non-bloody. + BS, mild RLQ tenderness. - Abd x-ray in ED, possible ileus, CT abdomen shows: diverticulososis w/o evidence of diverticulitis. - H+H: 11.9/37.2, stable, EGD : negative for acute bleed. Outpatient colonoscopy once acute phase resolves. - Dietary consult ordered. Recommend low fiber diet. (2) Acute exacerbation of CHF (congestive heart failure) Current Visit: Yes Status: Acute Discharge Diagnosis: Base Code: I50.9 - HEART FAILURE, UNSPECIFIED Comment: 06/22/18 - Hx of CHF, sees Dr. Crenshaw with [facility]. - [id number], troponins negative x 2, CXR: questionable interstitial edema. EKG: no acute ST-T wave changes. - Lasix 40mg BID, Entresto, Coreg 12.5mg BID, ASA 81mg, Plavix 75m, Crestor 10mg - ECHO completed: EF 20-25% with global hypokinesis. Pt has ICD implant. 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 Patient currently on Plavix and ASA for CAD/CVA history. Rectal exam in ED + for hemocult. -Hgb 12 (15 on 01/17) -GI consult, planning to do EGD today -NPO (4) DVT prophylaxis Current Visit: No Status: Acute Base Code: [id number] - Comment: 06/22/18: - SCDs while in bed. GI bleed so Lovenox held. - ambulation encouraged. (5) Full code status Current Visit: No Status: Acute Base Code: Z78.9 - OTHER SPECIFIED HEALTH STATUS Comment: 06/21/18- patient is full code this admission - Hospitalization Course Hospital Course: 68 year old male presents to ED for progressive weakness, shortness of breath, abdominal pain/fullness, and constipation. Patient reports a minimally productive cough, denies fever, chills, or diaphoresis. Patient states he has shortness of breath at baseline, but reports it has been worsening over the past several months. Patient is a poor historian and unable to give specifics about his health history. Patient denies chest pain, syncope, edema, or urinary difficulties. Patient also reports noting dark black, firm stools for the past week. However, reports he has not had a bowel movement in the past 3 days, reports normally having daily bowel movements. Patient has a history of CAD, CVA, HTN, COPD, permanent pacemaker, CABG, CHF, cardiomegaly, elevated lipids, and current smoker. Patient denies a history of GI bleed, currently takes Plavix and ASA for CAD/CVA history. 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 Lasix 40mg IVP ECHO GI consult 06/21/18: Patient A&O x 4. Patient resting comfortably in bed, at bedside. Patient on room air, denies any improvement in SOB since receiving additional Lasix dose. Lung sounds diminished but clear. Bowel sounds heard throughout. ECHO completed this morning, report pending. Patient remains NPO for GI consult and endoscopy. Regarding constipation, patient received miralax yesterday with no relief. After EGD, will give patient mag citrate for constipation. 06/22/18: phototypesetting equipment monitor: no acute changes overnight. Echo: completed - report pending. CT abdomen non-contrast: diverticulosis w/o evidence of diverticulitis. Exam: awake oriented and in no acute distress, bowel movement this morning - well formed, non-bloody. Procedures: Imaging and X-Rays 06/20/18 10:16 ABDOMEN, ACUTE SERIES [RAD] Stat 06/21/18 13:03 ABDOMEN/PELVIS W CONTRAST [CT] Stat Cardiology Procedures 06/20/18 10:15 Green House Manager .Continuous 06/20/18 10:16 EKG NOW 06/20/18 12:46 Green House Manager .Continuous EKG QDX2@0600 Echocardiogram 2D - Complete ONCE Abnormal Labs: Abnormal Lab Results 06/20/18 06/20/18 06/21/18 Range/Units 10:20 10:20 02:24 RBC 3.98 L 3.82 L (4.40-5.70) M/uL Hgb 12.0 L 11.6 L (14.0-18.0) gm/dl Hct 37.7 L 36.4 L (42.0-52.0) % MCHC 31.8 L 31.9 L (32-36) g/dl RDW 14.7 H 14.9 H (11.5-14.5) % MPV 12.0 H 11.3 H (7.4-10.4) fl Lymphocytes % 11.1 L (16-45) % Monocytes % 9.4 H 13.6 H (0-9) % Sodium 131 L (136-145) mmol/L Chloride 91 L (98-107) mmol/L Carbon Dioxide (22-29) mmol/L Random Glucose 129 H (74-109) mg/dL Total Bilirubin 1.10 H (0.2-1.0) mg/dL NT-Pro-B Natriuret Pep 4689.00 H (<125) pg/mL Total Protein (6.6-8.7) g/dL Albumin (4.0-5.0) g/dL 06/22/18 06/22/18 Range/Units 06:20 06:20 RBC 3.88 L (4.40-5.70) M/uL Hgb 11.9 L (14.0-18.0) gm/dl Hct 37.2 L (42.0-52.0) % MCHC (32-36) g/dl RDW 14.9 H (11.5-14.5) % MPV 11.4 H (7.4-10.4) fl Lymphocytes % 14.9 L (16-45) % Monocytes % 12.0 H (0-9) % Sodium 135 L (136-145) mmol/L Chloride 94 L (98-107) mmol/L Carbon Dioxide 31.0 H (22-29) mmol/L Random Glucose 139 H (74-109) mg/dL Total Bilirubin (0.2-1.0) mg/dL NT-Pro-B Natriuret Pep (<125) pg/mL Total Protein 6.5 L (6.6-8.7) g/dL Albumin 3.8 L (4.0-5.0) g/dL Condition at Discharge: (2) Stable Discharge Medications - Discharge Medications Home Medications: Ambulatory Orders Lisinopril 10 mg PO DAILY 02/06/15 [Last Taken 06/19/18] Multivitamin [Multi-Vitamin Daily] 1 tab PO DAILY 12/12/16 [Last Taken 06/19/18] Furosemide 40 mg PO BID 09/03/17 [Last Taken 06/19/18] Ipratropium/Albuterol [Duoneb] 3 ml IH NOW PRN MDD 4 09/03/17 [Last Taken ] Sacubitril/Valsartan [Entresto 97 mg-103 mg Tablet] 1 tab PO BID 09/03/17 [Last Taken 06/19/18] Rosuvastatin Calcium 5 mg PO DAILY #0 tab 02/24/18 [Last Taken 06/19/18] Discharge Plan - Discharge Instructions Diet at Discharge: Low Fat, Low Cholesterol, Low Salt Diet Instructions: Heart Failure (DC), Diverticulitis (DC) Additional Instructions: 2 Activity: 2 Diet: Low Fat, Low Cholesterol Low Salt Diet 2 Consults: [] 2 Follow Up: [] 2 Dressing/Wound Care: (Type) (Change) 2 Additional: [] Resume all home medications. Start diet as recommended by dietary. Follow up with Family Practice next week for your post-hospital exam. If your pain returns or you have increasing shortness of breath return to your nearest ED. Follow up with Mary Jane Anthony at [facility] on 07/01 at 10:40AM Quality Measures - Quality Measures Quality Measures: Advance Directives, Documentation of Current Medications in Medical Record, Elder Maltreatment Screen and Follow-Up Plan, Heart Failure, Screening for High Blood Pressure and F/U Documented - Current Medications Quality Measure: Measure #130: Documentation of Current Medications Documentation of Current Medications: <Current Medications Documented/Reviewed> [F2500] - Blood Pressure Screening Quality Measure: Screening for High Blood Pressure and Follow-Up Documented Does Patient Have Any of the Following: No Blood Pressure Classification: Pre-Hypertensive BP Reading Systolic Measurement: 131 Diastolic Measurement: 84 Screening for High Blood Pressure: < Pre-Hypertensive BP, F/U Documented > [ X1650] Pre-Hypertensive Follow-up Interventions: Follow-up with rescreen every year. - Heart Failure (ERIS/ARB Therapy) Quality Measure: Heart Failure Left Ventricular Systolic Function: LV Ejection Fraction less than 40% [3021F] ERIS Inhibitor or ARB Therapy for LVSD: <ERIS Inhibitor or ARB therapy prescribed or currently taken> [4010F] - Heart Failure (Beta-angel Therapy) Quality Measure: Heart Failure Left Ventricular Systolic Function: LV Ejection Fraction less than 40% [3021F] Beta-Angel Therapy for LVEF < 40%: <Beta-Angel Therapy Prescribed> [T1250] - Advance Directives Quality Measure: Measure #47: Care Plan Advance Directives Established: No Advance Directives Information Provided To Patient: Yes Advance Directives on File: No Living Will: No Power of Explosives Detonator: No Power of Explosives Detonator Name: per pt, he would like us to contact Peyton Advance Care Planning: <Care Plan/Decision Maker Documented; Discussed & Documented> [1123F] - Elder Abuse Suspicion Index Screening: Elder Abuse Suspicion Index Screening Rely on people for bathing, dressing, shopping, banking, etc: No Prevented from getting food, clothes, medication, etc: No Made to feel shamed or threatened by someone: No Forced to sign papers or use money against will: No Feel afraid, touched in ways not wanted or hurt physically: No Poor eye contact, withdrawn, malnourished, cuts or bruises: No Screening Result: Negative result EASI Reference Information: Mckenzie ALVARADO, Angela Calderón, Abhinav Schwartz, Stepan Owen.Development and validation of a tool to assist physicians identification of elder abuse: The Elder Abuse Suspicion Index (EASI ). Journal of Elder Abuse and Neglect, 2008; 20 (3): 276-300. - Elder Maltreatment Screen Quality Measures: Elder Maltreatment Screen and Follow-Up Plan Elder Maltreatment Screen: <Negative, No Follow-Up Plan Required> [X3221]
[2018-06-22] MEDS ORDERED: CLOPIDOGREL 75MG TABLET PO SCH (10:00)
[2018-06-22] MEDS ORDERED: ASPIRIN 81 MG CHEWABLE TABLET PO SCH (10:00)
--- NOTE | 2018-06-22 12:40 | Medical Records Consult ---
DATE OF CONSULTATION: 06/21/2018 at 8:30 a.m. HISTORY: The patient is a pleasant 68-year-old gentleman seen in consultation at the request of Dr. Pino for evaluation of drop in hemoglobin, upper abdominal pain, and history of black stools. The patient reports that he has had progressive weakness and shortness of breath over the past few weeks. He also complained of a nonproductive cough. From a GI standpoint, he reports having firm but dark black stools although he has not had a stool for the past 48 hours. He admits to some nausea but denies vomiting. He states that his abdomen has been distended, as he has had difficulty stooling with significant constipation. He generally will pass more regular stools. He denies previous GI tract evaluation via x-ray or endoscopy. His hemoglobin upon admission was 12 g. Early this year his hemoglobin was 15 g. He had no bright red rectal bleeding and no hematemesis or hemoptysis. Past medical history includes coronary artery disease with previous myocardial infarction, history of cerebrovascular accident, hypertension, COPD, congestive heart failure. This morning he had an echocardiogram suggesting a 35% ejection fraction although this has not been reviewed by the e commerce merchant as yet. He continues to smoke cigarettes. He has on average 3 beers a day. His past surgical history includes a triple bypass surgery in 2002. He has a pacemaker and a history of 5 coronary stents. Additional medical problems include history of polio affecting the right lower extremity with some weakness noted. The patient had been taking Plavix daily. REVIEW OF SYSTEMS: noted on the medical record and reviewed. He does from a respiratory standpoint complain of shortness of breath and nonproductive cough. From a GI standpoint, he is complaining of constipation with abdominal bloating but denies any nausea, vomiting, diarrhea, hematemesis, or hematochezia. The remainder of the review is unremarkable. PHYSICAL EXAMINATION: GENERAL: He is alert and oriented. NECK: Supple. HEART: Regular. LUNGS: Diminished breath sounds bilaterally. ABDOMEN: Slightly distended. Tympanic to percussion but soft. There is tenderness across the upper abdomen. There is no rebound, rigidity, or guarding. EXTREMITIES: Free from edema. NEUROMUSCULAR: Grossly unremarkable. LABORATORY DATA: On admission, BNP 4689, sodium 131 but otherwise normal comprehensive metabolic panel. CBC revealed hemoglobin 12 with hematocrit 37.7. Hemoglobin was 15 in December. Platelet count 153,000. Glucose 129, BUN 12, creatinine 0.7. IMPRESSION: The patient is suffering with upper abdominal pain with weakness and fatigue, and the cause for this is unclear. He did have black but firm stools which were Hemoccult positive when checked. He also had a drop in hemoglobin from December from 15 g down to 12 g. I am concerned he might be suffering with acid peptic disease and perhaps a bleeding ulcer. Additional medical problems include coronary artery disease with previous myocardial infarction, cerebrovascular accident, hypertension, chronic obstructive pulmonary disease, and congestive heart failure. PLAN: For further evaluation, as mentioned above, I would proceed with upper endoscopy. He can continue on proton pump inhibitor therapy at this time and avoid NSAIDs. Further recommendations may be forthcoming pending results of endoscopy. If negative, a CT scan of the abdomen might prove beneficial. The patient also should be arranged to have a colonoscopy, as he has not had one at this point. Thank you again for allowing me to participate in his care. I will update you with my findings. CC: MD ROQUE Dawn
--- NOTE | 2018-06-22 12:40 | Operative Note ---
DATE OF SURGERY: 06/21/2018 OPERATION: ESOPHAGOGASTRODUODENOSCOPY. INDICATION: Upper abdominal pain, Hemoccult-positive stools with history of black stools, drop in hemoglobin from 15 to 12 g, rule out upper GI tract source of bleeding including acid peptic disease. The patient has not had endoscopy in the past. ANESTHESIA: Intravenous sedation was administered by the department of anesthesiology and included Diprivan titrated to effect. PROCEDURE: Following informed consent from this alert individual, including a discussion of the risks and benefits of the procedure and an opportunity for the patient to ask questions, the patient was in the left lateral decubitus position. The Olympus [id number] video endoscope was inserted into the esophagus without resistance. The proximal esophagus had a normal appearance with normal folds and distensibility. The mid and distal esophagus likewise was free from abnormality. The stomach was entered and found to be unremarkable. There was no evidence of ulcerations, erosions, or bleeding. The pylorus was symmetrical and patent. The duodenal bulb, sweep and descending duodenum were examined in a serial fashion and found to be normal. The instrument was then withdrawn back into the body of the stomach. Retroflexion accomplished following air insufflation failed to demonstrate any changes. The endoscope was then straightened and withdrawn back through a normal esophagus and removed from the patient. The patient tolerated the procedure well and was returned to the recovery area in stable condition. IMPRESSION: Normal esophagogastroduodenoscopy without ulcerations, erosions, or bleeding. RECOMMENDATION: At this point, I would continue to evaluate the patient by obtaining a CT scan of the abdomen to further evaluate his pain. He also should be arranged to have a colonoscopy which can be performed as an outpatient. As always, thank you for allowing me to participate in the care of your patient. CC: MD ROQUE Dawn
== END 2018-06-22 12:30 | disposition home or self-care (01) | DRG 292 ==
LOC: ER 10:05 → MEDSURG 12:23
PROVIDERS: ADMIT Internal Medicine; ATTEND Internal Medicine
PROC: 0DJ08ZZ Inspection of Upper Intestinal Tract, Via Natural or Artificial Opening Endoscopic (ICD-10-PCS; principal; 2018-06-20)
DX: I50.9 Heart failure, unspecified (principal); K92.2 Gastrointestinal hemorrhage, unspecified; I25.810 Atherosclerosis of coronary artery bypass graft(s) without angina pectoris; R06.00 Dyspnea, unspecified; R19.5 Other fecal abnormalities; D64.9 Anemia, unspecified; Z79.01 Long term (current) use of anticoagulants; R53.81 Other malaise; J44.9 Chronic obstructive pulmonary disease, unspecified; R14.0 Abdominal distension (gaseous); Z95.5 Presence of coronary angioplasty implant and graft; F17.210 Nicotine dependence, cigarettes, uncomplicated; Z86.73 Personal history of transient ischemic attack (TIA), and cerebral infarction without residual deficits; Z86.12 Personal history of poliomyelitis; Z95.0 Presence of cardiac pacemaker; Z95.1 Presence of aortocoronary bypass graft
CPT/HCPCS: 74022; 74177; 80053; 83880; 84484; 85025; 93005; 93010; 93306; 94640; 94761; 96374; 99223; 99239; 99285; C9113; J1940

== ENCOUNTER 2019-04-27 12:24 | Emergency (ER) | payer MEDICARE ==
--- NOTE | 2019-04-27 12:34 | Emergency Department Record ---
History of Present Illness - General Stated Complaint: DEFIBULATOR WENT OFF Time Seen by Provider: 04/27/19 12:28 Source: Patient, Family Mode of Arrival: Ambulatory Limitations: No limitations - History of Present Illness Initial Comments: patient said he was sitting in a chair about thirty minutes ago and he felt dizzy and his defibrillator went off and he came in for evaluation. Patient had CABG(2002),5 cardiac stents and defibrillator(approximately 2013) and his heart is at 30% per patient. last time the defibrillator went off was 6 months ago. Database Technician is Dr Mary at [facility]. Patient denies chest pain and breathing at baseline and he says he is chronically SOB and he uses oxygen 2 liters/minute at night only and his pulse ox on room air 92% upon arrival to the ED. patient was told battery good for 5 years more. MD Complaint: Dizziness - Related Data Allergies Allergy/AdvReac Type Severity Reaction Status Date / Time No Known Drug Allergies Allergy Unverified 10/22/18 07:41 Review of Systems Reviewed: No additional complaints except as noted below Constitutional: Reports: As per HPI. Denies: Chills, Fever, Malaise, Night sweats, Weakness, Weight change Eyes: Reports: As per HPI. Denies: Eye discharge, Eye pain, Photophobia, Vision change ENT: Reports: As per HPI. Denies: Congestion, Dental pain, Ear pain, Epistaxis, Hearing loss, Throat pain Respiratory: Reports: As per HPI. Denies: Cough, Dyspnea, Hemoptysis, Stridor, Wheezes Cardiovascular: Reports: As per HPI. Denies: Arrhythmia, Chest pain, Dyspnea on exertion, Edema, Murmurs, Orthopnea, Palpitations, Paroxysmal nocturnal dyspnea, Rheumatic Fever, Syncope Endocrine: Reports: As per HPI. Denies: Fatigue, Heat or cold intolerance, Polydipsia, Polyuria Gastrointestinal: Reports: As per HPI. Denies: Abdominal pain, Constipation, Diarrhea, Hematemesis, Hematochezia, Melena, Nausea, Vomiting Genitourinary: Reports: As per HPI. Denies: Dysuria, Frequency, Hematuria, In continence, Retention, Testicular pain, Testicular mass, Urgency Musculoskeletal: Reports: As per HPI. Denies: Arthralgia, Back pain, Gout, Joint swelling, Myalgia, Neck pain Skin: Reports: As per HPI. Denies: Bruising, Change in color, Change in h air/nails, Lesions, Pruritus, Rash Neurological: Reports: As per HPI. Denies: Abnormal gait, Confusion, Headache, Numbness, Paresthesias, Seizure, Tingling, Tremors, Vertigo, Weakness Psychiatric: Reports: As per HPI. Denies: Anxiety, Auditory hallucinations, Depression, Homicidal thoughts, Suicidal thoughts, Visual hallucinations Hematological/Lymphatic: Reports: As per HPI. Denies: Anemia, Blood Clots, Easy bleeding, Easy bruising, Swollen glands Past Medical History - SOCIAL HISTORY Smoking Status: Current every day smoker Alcohol Use Comment: 3-4 beers /day - RESPIRATORY Hx Respiratory Disorders: Yes Hx Bronchitis: No Hx COPD: Yes Hx Pneumonia: Yes - CARDIOVASCULAR Hx Cardio Disorders: Yes Hx Cardiac Cath: Yes Hx Heart Attack: Yes (triple bypass 2002) Hx Hypertension: Yes Hx Pacemaker/Defib: Yes Hx Coronary Artery Disease: Yes Hx Coronary Stent: Yes (x5) - NEURO Hx Neuro Disorders: Yes Hx Dizziness: Yes Hx Paralysis: Yes (polio affecting RLE) Comment:: recent visit to ed for poss stroke apparently had minor clot in sm vessel i - GI Hx GI Disorders: Yes Hx Abdominal Pain: Yes Hx GI Bleed: Yes Comment:: constipation x 2-3 weeks - Hx Genitourinary Disorders: No Comment:: ABCESS PERIANAL - ENDOCRINE Hx Endocrine Disorders: No - MUSCULOSKELETAL Hx Musculoskeletal Disorders: No - PSYCH Hx Psych Problems: No - HEMATOLOGY/ONCOLOGY Hx Hematology/Oncology Disorders: No Comment:: pt on plavix Family Medical History Hx Heart Disease: Father, Mother, Brother/Sister, Grandparents Physical Exam - General General Appearance: Alert, Oriented x3, Cooperative, No acute distress - Head Head exam: Normal inspection - Eye Eye exam: Normal appearance, PERRL Pupils: Normal accommodation - ENT ENT exam: Normal exam, Mucous membranes moist, Normal external ear exam, Normal orophraynx, TM's normal bilaterally Ear exam: Normal external inspection. negative: External canal tenderness Nasal Exam: Normal inspection. negative: Discharge, Sinus tenderness Mouth exam: Normal external inspection, Tongue normal Teeth exam: Normal inspection. negative: Dental caries Throat exam: Normal inspection. negative: Tonsillar erythema, Tonsillar exudate - Neck Neck exam: Normal inspection, Full ROM. negative: Tenderness - Respiratory Respiratory exam: Normal lung sounds bilaterally. negative: Respiratory distress - Cardiovascular Cardiovascular Exam: Regular rate, Normal rhythm, Normal heart sounds - GI/Abdominal GI/Abdominal exam: Soft, Normal bowel sounds. negative: Tenderness - Rectal Rectal exam: Deferred - exam: Deferred - Extremities Extremities exam: Normal inspection, Full ROM, Normal capillary refill. negative: Tenderness - Back Back exam: Reports: Normal inspection, Full ROM. Denies: Muscle spasm, Rash noted, Tenderness - Neurological Neurological exam: Alert, Normal gait, Oriented X3, Reflexes normal - Psychiatric Psychiatric exam: Normal affect, Normal mood - Skin Skin exam: Dry, Intact, Normal color, Warm Course - Reevaluation(s) Reevaluation #1: discussed case with Dr Miguel and he will recieve a phone to get checked and he needs to be seen in 1-2 weeks. 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 If more shocks go to [facility] Time of Disposition: 15:40 Quality - Quality Measures Quality Measures: N/A - Blood Pressure Screening Does Patient Have Any of the Following: No, Active Dx of HTN Blood Pressure Classification: Pre-Hypertensive BP Reading Systolic Measurement: 143 Diastolic Measurement: 85 Screening for High Blood Pressure: Patient Exclusion, Hx of HTN [G9744]
[2019-04-27] MEDS ORDERED: 0.9 % SODIUM CHLORIDE 1000ML 1,000 ML IV PRN (12:35)
[2019-04-27] MEDS ORDERED: ASPIRIN 81 MG CHEWABLE TABLET PO ONE (12:35)
[2019-04-27 13:26] LABS: ABSOLUTE NEUTROPHIL COUNT 5.56; BASO % 0.3 % (0-6); EOS % 1.8 % (0-6); GRAN % 75.1 % (47-80); HEMATOCRIT 43.4 % (42.0-52.0); HEMOGLOBIN 14.2 gm/dl (14.0-18.0); LYMPH % 12.2 % (16-45); MEAN CELL VOLUME 93.7 fl (81-97); MEAN CORPUSCULAR HEMOGLOBIN 30.7 pg (27-33); MEAN CORPUSCULAR HGB CONC 32.7 g/dl (32-36); MONO % 10.6 % (0-9); PLATELET COUNT 144 K/uL (130-400); RED BLOOD COUNT 4.63 M/uL (4.40-5.70); RED CELL DISTRIBUTION WIDTH 14.7 % (11.5-14.5); WHITE BLOOD COUNT W/O DIFF 7.4 K/uL (4.2-12.2)
[2019-04-27 14:03] LABS: BLOOD UREA NITROGEN 10 mg/dL (8-23); CREATININE 0.7 mg/dL (0.7-1.2); EST GLOMERULAR FILTRATION RATE > 60 mL/min; INR 1.1; PARTIAL THROMBOPLASTIN TIME 27.7 SECONDS (24.5-39.1)
[2019-04-27 14:06] LABS: GLUCOSE,RANDOM 151 mg/dL (74-109)
--- NOTE | 2019-04-28 12:20 | RADIOLOGY REPORT ---
CHEST 2 VIEWS CLINICAL HISTORY: Defibrillator activation. TECHNIQUE: Upright PA and lateral views of the chest. COMPARISON: Two-view chest radiographic examination dated 01/18/2018. FINDINGS: Post median sternotomy changes are re-demonstrated. A dual-lead transvenous cardiac stimulator is in place via the left subclavian approach with lead tips in the right atrium and right ventricle respectively. The heart projects mildly enlarged. There is borderline to mild pulmonary venous hypertension. Reticular opacity prominence is present in the lower lungs, appearing slightly more pronounced in the interval, possibly relating to mild interstitial edema superimposed on chronic interstitial change. No new lung consolidation. No gross costophrenic angle blunting or pneumothorax. Metallic stapler gun noted at the level of the right glenohumeral joint. IMPRESSION: 1. Post median sternotomy. 2. Cardiomegaly with borderline to mild pulmonary venous hypertension. 3. Reticular opacity prominence in the lower lungs, appears slightly more pronounced in the interval. This may be related to interstitial edema superimposed on chronic interstitial change or interval progression of chronic interstitial change. No pleural effusion. MTDD
== END 2019-04-27 15:50 | disposition home or self-care (01) ==
LOC: ER 12:24
DX: T82.198A Other mechanical complication of other cardiac electronic device, initial encounter (principal); I25.5 Ischemic cardiomyopathy; R42 Dizziness and giddiness; R06.02 Shortness of breath; J44.9 Chronic obstructive pulmonary disease, unspecified; I10 Essential (primary) hypertension; I25.2 Old myocardial infarction; F17.210 Nicotine dependence, cigarettes, uncomplicated; Z99.81 Dependence on supplemental oxygen; Z95.1 Presence of aortocoronary bypass graft
CPT/HCPCS: 71046; 80048; 84484; 85025; 85610; 85730; 93005; 93010; 99284

== ENCOUNTER 2019-08-11 12:06 | Emergency (ER) | payer MEDICARE ==
[2019-08-11] MEDS ORDERED: PROPARACAINE HCL OPTH 15ML BTL OPTH ONE (12:08)
--- NOTE | 2019-08-11 12:29 | Emergency Department Record ---
History of Present Illness - General Chief complaint: Eye Problem Stated complaint: SOMETHING IN EYE Time Seen by Provider: 08/11/19 12:15 Source: Patient Mode of Arrival: Ambulatory Limitations: No limitations - History of Present Illness Initial comments: The patient is here due to L eye redness for 3 days. He denies any trauma, injury, pain, blurred vision, or any recent illness. The patient does take a baby ASA and Plavix chronically. chief complaint: Eye redness Onset/Timin -: Days(s) Onset Description: Gradual Location: Left eye Place: Home If Injury: None Associated Symptoms: None Treatments Prior to Arrival: None - Related Data Visual acuity (L) = 20/: 30 Visual acuity (R) = 20/: 25 With correction: No Hx Tetanus Toxoid Vaccination: Yes Year of Tetanus Vaccination: unsure Allergies Allergy/AdvReac Type Severity Reaction Status Date / Time No Known Drug Allergies Allergy Verified 08/11/19 12:13 Travel Screening - Travel/Exposure Within Last 30 Days Have you traveled within the last 30 days?: No Review of Systems Constitutional: Denies: Chills, Fever Eyes: Denies: Eye discharge, Eye pain ENT: Denies: Congestion Respiratory: Denies: Cough Past Medical History - SOCIAL HISTORY Smoking Status: Current every day smoker Alcohol Use: None Drug Use: None - RESPIRATORY Hx Respiratory Disorders: Yes Hx COPD: Yes Hx Pneumonia: Yes - CARDIOVASCULAR Hx Cardio Disorders: Yes Hx Cardiac Cath: Yes Hx Heart Attack: Yes (triple bypass 2002) Hx Hypertension: Yes Hx Pacemaker/Defib: Yes Hx Coronary Artery Disease: Yes Hx Coronary Stent: Yes (x5) - NEURO Hx Neuro Disorders: Yes Hx Dizziness: Yes Hx Paralysis: Yes (polio affecting RLE) Comment:: recent visit to ed for poss stroke apparently had minor clot in sm vessel i - GI Hx GI Disorders: Yes Hx Abdominal Pain: Yes Hx GI Bleed: Yes - Hx Genitourinary Disorders: No Comment:: ABCESS PERIANAL - ENDOCRINE Hx Endocrine Disorders: No - MUSCULOSKELETAL Hx Musculoskeletal Disorders: Yes - PSYCH Hx Psych Problems: No - HEMATOLOGY/ONCOLOGY Hx Hematology/Oncology Disorders: No Family Medical History Any Significant Family History?: Yes Hx Heart Disease: Father, Mother, Brother/Sister, Grandparents Physical Exam - General General Appearance: Alert, Oriented x3, Cooperative, No acute distress - Head Head exam: Atraumatic, Normocephalic - Eye Eye exam: PERRL. negative: Normal appearance (There is a subconjunctival hemorrhage in the L eye from the 5:00-9:00 position. The cornea is clear with neg uptake. ), Conjunctival injection With correction: No - ENT Throat exam: Normal inspection. negative: Tonsillar erythema, Tonsillar exudate Course Vital Signs 08/11/19 12:09 Temperature 98.0 F Pulse Rate 64 Respiratory 18 Rate Blood Pressure 112/64 Pulse Ox 99 - Reevaluation(s) Reevaluation #1: I did discuss the obvious subconjunctival hemorrhage with the patient and the need to F/U next week if not better. 08/11/19 12:34 Disposition Disposition: Discharge Clinical Impression: Subconjunctival hemorrhage of left eye Disposition: Home, Self-Care Condition: (2) Stable Instructions: Subconjunctival Hemorrhage (ED) Additional Instructions: Please use wetting eye drops if the L eye develops a mild irritation. Please see your doctor for any worsening problems and return to the ER for any eye pain, visual changes, or blurred vision. Forms: Patient Portal Access Time of Disposition: 12:29 Quality - Quality Measures Quality Measures: N/A - Blood Pressure Screening View Details: Yes Does Patient Have Any of the Following: No Blood Pressure Classification: Normal BP Reading Systolic Measurement: 112 Diastolic Measurement: 64 Screening for High Blood Pressure: < Normal BP, F/U Not Required > [[id number]]
== END 2019-08-11 12:37 | disposition home or self-care (01) ==
LOC: ER 12:06
DX: H11.32 Conjunctival hemorrhage, left eye (principal); I10 Essential (primary) hypertension; F17.210 Nicotine dependence, cigarettes, uncomplicated
CPT/HCPCS: 99283